=== PATIENT | female | born 1955 | race Caucasian/White ===

== ENCOUNTER 2016-12-15 19:33 | Emergency (ER) | payer MEDICAID ==
[2016-12-15] MEDS ORDERED: Metoclopramide 10 MG/2 ML SDV IVPUSH ONE (20:00)
[2016-12-15] MEDS ORDERED: Sodium Chloride 0.9% 1,000 ML IV SCH (20:00)
[2016-12-15] MEDS ORDERED: HYDROmorphone 0.5 MG/0.5 ML Syringe IVPUSH ONE (20:00)
--- NOTE | 2016-12-15 20:04 | EDM.PDOC ---
ED HPI GI/ABDOMINAL - General Chief Complaint: Gastrointestinal Problem Stated Complaint: VOMITING Time Seen by Provider: 12/15/16 19:47 Source of Information: Reports: Patient, Family (friend) History Limitations: Reports: No limitations - History of Present Illness INITIAL COMMENTS - FREE TEXT/NARRATIVE: 61-year-old female presents the ED with intractable nausea and vomiting. Started about 2000 hours last night and has persisted. She continued to vomit all night long notes dry heaves. Emesis was bilious. She's been on clear fluid diet since having gastric bypass surgery performed on 10 December. This was done at [facility] by Dr Stern. She was discharged home December 13. She has no bone pain except when she vomits. No blood has been vomited up. Did have a bowel movement today with no blood. Does not feel her abdomen is any more distended or bloated than normal. Still passing flatus. Has been able to keep down very small quantities of water throughout the day. Feels very dizzy and weak. Symptom Onset Date: 12/14/16 Symptom Onset Time: 20:00 Timing/Duration: Reports: Hour(s):, Constant, Sudden onset Location: other (Epigastric upper abdominal pain.) Quality: Reports: ache Severity: moderate Improves with: Denies: defecating Worsens with: Reports: other (Lying down or trying to eat.) Context: Reports: recent surgery (Recent gastric bypass surgery. This was done on 10 December in [facility].) Associated Symptoms (-Female): Reports: loss of appetite, malaise, nausea/ vomiting (Intractable recurrent nausea vomiting for 24 hours.). 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 (see below) (To call her meds except for her blood pressure pills today.) - Related Data Allergies/ADRs: Allergies Allergy/AdvReac Type Severity Reaction Status Date / Time No Known Allergies Allergy Verified 12/15/16 19:53 Home Meds: Home Meds Albuterol Sulfate [Proair Hfa] 1 puff INH Q4H PRN 12/15/16 [History] Hydrocodone Bit/Homatrop Me-Br [Hydrocodone Compound Syrup] 10 ml PO Q4H PRN 11/28 [History] Lisinopril 5 mg PO DAILY 12/15/16 [History] Omeprazole 20 mg PO DAILY 12/15/16 [History] Ondansetron [Zofran ODT] 4 mg PO Q6H PRN 12/15/16 [History] atorvaSTATin [Lipitor] 20 mg PO DAILY 12/15/16 [History] Past Medical History - Past Health History Medical/Surgical History: Denies Medical/Surgical History HEENT History: Reports: None Cardiovascular History: Reports: None Respiratory History: Reports: SOB Other Respiratory History: but it has been worse for last month and a half Gastrointestinal History: Reports: None Genitourinary History: Reports: None 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: Neurological History: Reports: None Psychiatric History: Reports: None Dermatologic History: Reports: None - Infectious Disease History Infectious Disease History: Reports: None - Past Surgical History HEENT Surgical History: Reports: Adenoidectomy, Tonsillectomy Female Surgical History: Reports: Hysterectomy Musculoskeletal Surgical History: Reports: Arthroscopic knee (Left), Carpal tunnel (Bilateral) Social & Family History - Family History Cardiac: Reports: PVD/COD, Other (see below) Other Cardiac Family History: CVA - Tobacco Use Smoking Status *Q: Never Smoker Second Hand Smoke Exposure: No - Alcohol Use Days Per Week of Alcohol Use: 0 - Recreational Drug Use Recreational Drug Use: No - Living Situation & Occupation Living situation: Reports: , with spouse ED ROS GENERAL - Review of Systems Review Of Systems: See Below Constitutional: Reports: chills, malaise (Some chills.), weakness, fatigue, decreased appetite. Denies: fever HEENT: Reports: Other (Very dry mouth and she is thirsty.) Respiratory: Reports: Shortness of Breath. Denies: Wheezing (On exertion chronically), Cough, Sputum, Hemoptysis Cardiovascular: Reports: Blood pressure problem, Dyspnea on exertion, Lightheadedness. Denies: Chest pain, Claudication, Orthopnea (Chronically hypertensive.), Palpitations (Chronic) Endocrine: Reports: fatigue GI/Abdominal: Reports: Abdominal pain (Mostly epigastric and at the umbilicus where recent gastric bypass surgery was performed. She has 4 stab wounds across the upper abdomen that are covered with Steri-Strips. They were all bruised not unexpected for the type of surgery she has had.) : Reports: other (Decreased urinary output today.) Musculoskeletal: Reports: back pain, joint pain (Chronically knees and hips chronically) Skin: Reports: bruising (Plenty of abdominal bruising. Bruising at antecubital fossa is a recent phlebotomy and diabetes sites.) Neurological: Reports: Dizziness Immunologic: Reports: no symptoms ED EXAM, GI/ABD - Physical Exam Exam: See Below Exam Limited By: No limitations General Appearance: alert, WD/WN, moderate distress (Patient looks quite ill.) Eyes: bilateral: normal appearance (No scleral icterus) Throat/Mouth: Other (Tongue is very dry and coated. Oropharynx is normal.) Head: atraumatic, normocephalic Neck: normal inspection, supple, non-tender, full range of motion. No: carotid bruit, lymphadenopathy (L), lymphadenopathy (R) Respiratory/Chest: lungs clear, no accessory muscle use, respiratory distress ( Mild tachypnea at rest.), decreased breath sounds (Decreased breath sounds to the posterior 30% of lung garcia. No adventitial sounds noted however.) Cardiovascular: regular rate, rhythm, no edema, no gallop, no JVD, no murmur, no rub, tachycardia (100 per minute.). No: normal peripheral pulses GI/Abdominal: normal bowel sounds, hypoactive bowel sounds, tenderness (Across the upper abdomen. Note she is morbidly obese. She has 4 puncture wounds across the upper abdomen its site of recent ports utilized for laparoscopic gastric bypass procedure. Bruising throughout the lower abdominal wall particularly in the midline. Bowel sounds are present but are not hyperactive. No real guarding or rebound tenderness could be elicited. Diffuse tenderness of course her recent surgical wounds.) Back Exam: normal inspection, full range of motion. No: CVA tenderness (L), CVA tenderness (R) Extremities: normal inspection, normal range of motion, non-tender, no pedal edema Neurological: alert, oriented, CN II-XII intact, normal cognition, normal gait Psychiatric: depressed mood Skin Exam: Warm, Dry, Intact, Normal color, Other (Does feel a bit warm to palpation.) EKG INTERPRETATION EKG Date: 12/15/16 Time: 20:50 Rhythm: NSR Rate (beats/min): 85 [place]: normal P-wave: present QRS: other (Decreased voltage in limb and precordial leads. Poor R-wave progression.) ST-T: depressed (Slight ST segment depression in leads 3 and aVF.?) Course - Vital Signs Last Recorded V/S: Last Vital Signs Temp 36.9 C 12/15/16 20:03 Pulse 98 12/15/16 20:03 Resp 12 12/15/16 20:03 BP 147/72 H 12/15/16 20:03 Pulse Ox 98 12/15/16 20:03 - Orders/Labs/Meds Orders: Active Orders 24 hr Category Date Time Status EKG Documentation Completion [RC] STAT Care 12/15/16 20:01 Active Abdomen 1V Flat [CR] Stat Exams 12/15/16 20:00 Ordered CBC WITH MANUAL DIFF [HEME] Stat Lab 12/15/16 20:10 Results URINALYSIS W/MICROSCOPIC [UA W/MICROSCOPIC] [URIN] Stat Lab 12/15/16 20:02 Uncollected Sodium Chloride 0.9% [Normal Saline] 1,000 ml Med 12/15/16 20:00 Active IV ASDIRECTED Medication Orders Sodium Chloride (Normal Saline) 1,000 mls @ 500 mls/hr IV ASDIRECTED HORTENCIA Last Admin: 12/15/16 20:14 Dose: 500 mls/hr Labs: Laboratory Tests 12/15/16 12/15/16 12/15/16 Range/Units 20:10 20:10 20:10 WBC 11.35 H (3.98-10.04) K/mm3 RBC 4.11 (3.98-5.22) M/mm3 Hgb 11.7 (11.2-15.7) gm/L Hct 36.1 (34.1-44.9) % MCV 87.8 (79.4-94.8) fl MCH 28.5 (25.6-32.2) pg MCHC 32.4 (32.2-35.5) g/dl RDW Std Deviation 41.0 (36.4-46.3) fL Plt Count 347 (182-369) K/mm3 MPV 9.7 (9.4-12.3) fl PT 11.0 (8.0-13.0) SECONDS INR 1.01 Sodium 141 (136-145) mEq/L Potassium 3.6 (3.5-5.1) mEq/L Chloride 104 (98-107) mEq/L Carbon Dioxide 23 (21-32) mEq/L Anion Gap 17.6 H (5-15) BUN 24 H (7-18) mg/dL Creatinine 0.8 (0.55-1.02) mg/dL Est Cr Clr Drug Dosing 55.73 mL/min Estimated GFR (MDRD) > 60 (>60) mL/min BUN/Creatinine Ratio 30.0 H (14-18) Glucose 152 H (80-115) mg/dL Calcium 9.1 (8.5-10.1) mg/dL Total Bilirubin 0.7 (0.2-1.0) mg/dL AST 15 (15-37) U/L ALT 22 (14-59) U/L Alkaline Phosphatase 59 (46-116) U/L C-Reactive Protein 10.5 H* (<1.0) mg/dL Total Protein 6.6 (6.4-8.2) g/dl Albumin 3.0 L (3.4-5.0) g/dl Globulin 3.6 gm/dL Albumin/Globulin Ratio 0.8 L (1-2) Lipase 292 (73-393) U/L Meds: Medications Generic Name Dose Route Start Last Admin Trade Name Freq PRN Reason Stop Dose Admin Sodium Chloride 1,000 mls @ 500 mls/hr 12/15/16 20:00 12/15/16 20:14 Normal Saline IV 500 mls/hr ASDIRECTED HORTENCIA Administration Discontinued Medications Generic Name Dose Route Start Last Admin Trade Name Freq PRN Reason Stop Dose Admin Hydromorphone HCl 0.5 mg 12/15/16 20:00 12/15/16 20:17 Dilaudid IVPUSH 12/15/16 20:01 0.5 mg ONETIME ONE Administration Metoclopramide HCl 10 mg 12/15/16 20:00 12/15/16 20:15 Reglan IVPUSH 12/15/16 20:01 10 mg ONETIME ONE Administration - Radiology Interpretation Free Text/Narrative:: 61-year-old female presents the ED with intractable nausea and vomiting for the last 24 hours. Of note she underwent arthroscopic gastric bypass procedure at [facility] on 10 December. She was released on 13 December. She's been on a clear fluid broth diet and Jell-O etc. tolerated well until last evening. Subsequently she states anything sweet seems to relieve make her feel ill. She has constant nausea that comes in waves with associated dry heaves at the present time. There's been no hematemesis. Pain in the surgical wounds when she vomits but no rest pain. Plan IV normal saline at 500 mils per hour. Given Dilaudid 0.5 mg IV for pain relief and 10 mg of Reglan IV. Routine labs including serum lipase to be done. Sodium is 141 potassium 3.6. Portal 4 bicarbonate 23. Anion gap elevated at 17.6 BUN elevated at 24. Creatinine is 0.8. BUN/creatinine ratio is elevated at 30. CRP is elevated at 10.5 glucose 152 lipase 292 normal. X-rays of the abdomen showed numerous dilated loops of small bowel without air-fluid levels. This is more of an ileus type pattern. Early small bowel obstruction cannot be ruled out. There is a positive gas in the rectum. - Re-Assessments/Exams Free Text/Narrative Re-Assessment/Exam: 12/15/16 20:46 labs reveal a white count of 11.35. Differential pending hemoglobin is 11.7 hematocrit is 36.1. Platelets are 347,000. Coags are normal. Tuan 12/15/16 21:31 spoke with the surgeon who had performed the surgery and she is accepted care she prefers the hospitals to do the admit. I therefore spoke with Dr. Puente and he is accepted the patient in transfer. She will be transferred by ground ambulance. Departure - Departure Time of Disposition: 21:32 Disposition: DC/Tfer to Acute Hospital 02 Condition: fair Clinical Impression: Intractable nausea and vomiting, Ileus following gastrointestinal surgery Additional Instructions: Patient transferred to [facility] in [facility] where she had recently undergone gastric bypass by Dr. Stern on December 10. Postoperative complications of intractable nausea and vomiting x24 hours with development of ileus. - My Orders Last 24 Hours: My Active Orders 12/15/16 20:00 Abdomen 1V Flat [CR] Stat Sodium Chloride 0.9% [Normal Saline] 1,000 ml IV ASDIRECTED 12/15/16 20:01 EKG Documentation Completion [RC] STAT 12/15/16 20:02 URINALYSIS W/MICROSCOPIC [UA W/MICROSCOPIC] [URIN] Stat 12/15/16 20:10 CBC WITH MANUAL DIFF [HEME] Stat - Assessment/Plan Last 24 Hours: My Active Orders 12/15/16 20:00 Abdomen 1V Flat [CR] Stat Sodium Chloride 0.9% [Normal Saline] 1,000 ml IV ASDIRECTED 12/15/16 20:01 EKG Documentation Completion [RC] STAT 12/15/16 20:02 URINALYSIS W/MICROSCOPIC [UA W/MICROSCOPIC] [URIN] Stat 12/15/16 20:10 CBC WITH MANUAL DIFF [HEME] Stat
[2016-12-15] MEDS ORDERED: D5%-0.9% NaCl w/ KCl 40 meq 1,000 ML IV SCH (22:00)
[2016-12-15] MEDS ORDERED: D5%-0.9% NaCl w/ KCl 40 meq 1,000 ML ONE (22:01)
[2016-12-15 22:26] VITALS: BP 160/84
--- NOTE | 2016-12-16 10:57 | CR ---
Abdomen: Supine view of the abdomen was obtained. Increased gas noted within multiple small bowel loops. Degenerative change is noted within the spine. Mild joint space narrowing is seen within both hips. Impression: 1. Increased gas within small bowel. Given recent surgery findings most likely due to ileus although difficult to exclude developing small bowel obstruction based on plain film study. 2. Other incidental findings. Diagnostic code #3
== END 2016-12-15 22:10 ==
LOC: JD.ED 19:33
DX: K91.3 Postprocedural intestinal obstruction (principal); Z90.710 Acquired absence of both cervix and uterus; Z98.890 Other specified postprocedural states; Z79.899 Other long term (current) drug therapy
CPT/HCPCS: 36415; 74000; 80053; 81001; 83690; 85025; 85610; 86140; 93005; 96361; 96374; 96375; 99285; J1170; J2765; J3480; J7040; P9612

== ENCOUNTER 2017-09-23 18:15 | Emergency (ER) | payer MEDICAID ==
[2017-09-23 18:32] VITALS: BP 165/81
--- NOTE | 2017-09-23 18:46 | EDM.PDOC ---
ED HPI GENERAL MEDICAL PROBLEM - General Chief Complaint: Chest Pain Stated Complaint: STOMACH AND BACK PAIN Time Seen by Provider: 09/23/17 18:45 Source of Information: Reports: Patient - History of Present Illness INITIAL COMMENTS - FREE TEXT/NARRATIVE: Patient is here today for evaluation of central upper abdominal pain and left chest pain that started approximately 2:30 PM today. Patient states that pain has worsened significantly since that time. She denies any shortness of breath or diaphoresis. She is nauseated but feels this is related to the pain. No vomiting or diarrhea. She had a normal bowel movement around 2 PM today that was soft but otherwise normal and formed. Patient denies any cardiac history, she states that she thinks she may have had a stroke previously but is unsure. Has no deficits from this. Does have occasional heartburn. Patient denies any Tylenol use, does not drink alcohol on a regular basis. Back Pain Score (Numeric/FACES): 10 - Related Data Allergies Allergy/AdvReac Type Severity Reaction Status Date / Time No Known Allergies Allergy Verified 09/23/17 18:33 Home Meds: Home Meds Albuterol Sulfate [Proair Hfa] 1 puff INH Q4H PRN 12/15/16 [History] Omeprazole 20 mg PO DAILY 12/15/16 [History] atorvaSTATin [Lipitor] 10 mg PO DAILY 12/15/16 [History] Past Medical History - Past Health History Medical/Surgical History: Denies Medical/Surgical History HEENT History: Reports: None Cardiovascular History: Reports: None Respiratory History: Reports: SOB Other Respiratory History: but it has been worse for last month and a half Gastrointestinal History: Reports: None Other Gastrointestinal History: gastric bypass Genitourinary History: Reports: None 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: Neurological History: Reports: None Psychiatric History: Reports: None Dermatologic History: Reports: None - Infectious Disease History Infectious Disease History: Reports: None - Past Surgical History HEENT Surgical History: Reports: Adenoidectomy, Tonsillectomy Female Surgical History: Reports: Hysterectomy Musculoskeletal Surgical History: Reports: Arthroscopic Knee, Carpal Tunnel Social & Family History - Family History Cardiac: Reports: PVD/COD, Other (See Below) Other Cardiac Family History: CVA - Tobacco Use Smoking Status *Q: Never Smoker Second Hand Smoke Exposure: No - Caffeine Use Caffeine Use: Reports: Coffee - Alcohol Use Days Per Week of Alcohol Use: 0 - Recreational Drug Use Recreational Drug Use: No - Living Situation & Occupation Living situation: Reports: , with Spouse ED ROS GENERAL - Review of Systems Review Of Systems: See Below Constitutional: Denies: Fever, Chills, Malaise, Weakness, Fatigue, Decreased Appetite HEENT: Reports: No Symptoms Respiratory: Reports: No Symptoms Cardiovascular: Reports: Chest Pain. Denies: Blood Pressure Problem Endocrine: Reports: No Symptoms GI/Abdominal: Reports: Abdominal Pain, Nausea. Denies: Black Stool, Bloody Stool, Constipation, Diarrhea, Decreased Appetite, Flatus Skin: Reports: No Symptoms ED EXAM, GENERAL - Physical Exam Exam: See Below Exam Limited By: No Limitations General Appearance: Alert, WD/WN, Moderate Distress Eye Exam: Bilateral Eye: Other (NO icterus) Throat/Mouth: Normal Inspection, Normal Oropharynx Neck: Normal Inspection, Supple Respiratory/Chest: No Respiratory Distress, Lungs Clear, No Accessory Muscle Use Cardiovascular: Normal Peripheral Pulses, Regular Rate, Rhythm, No Murmur GI/Abdominal: Normal Bowel Sounds, Soft, Tender (Epigastric and right upper quadrant.), Other (Positive Jennings sign.) Extremities: Normal Inspection, Normal Capillary Refill, Pedal Edema (1+ nonpitting) Neurological: Alert, Oriented, No Motor/Sensory Deficits Psychiatric: Normal Affect, Normal Mood Skin Exam: Warm, Dry, Intact. No: Jaundice EKG INTERPRETATION EKG Date: 09/23/17 Time: 18:45 Rhythm: NSR Rate (Beats/Min): 67 EKG Interpretation Comments: Reviewed with Dr Elizabeth Course - Vital Signs Last Recorded V/S: Last Vital Signs Temp 97 F 09/23/17 18:28 Pulse 71 09/23/17 18:28 Resp 20 09/23/17 18:28 BP 165/81 H 09/23/17 18:28 Pulse Ox 100 09/23/17 18:28 - Orders/Labs/Meds Orders: Active Orders 24 hr Category Date Time Status EKG 12 Lead [EKG Documentation Completion] [RC] STAT Care 09/23/17 18:45 Active Abdomen Ltd [US] Stat Exams 09/23/17 20:23 Taken CXR [Chest 2V] [CR] Stat Exams 09/23/17 18:51 Taken Labs: Laboratory Tests 09/23/17 09/23/17 09/23/17 Range/Units 19:30 19:30 19:30 WBC 8.22 (3.98-10.04) K/mm3 RBC 4.35 (3.98-5.22) M/mm3 Hgb 12.1 (11.2-15.7) gm/L Hct 38.2 (34.1-44.9) % MCV 87.8 (79.4-94.8) fl MCH 27.8 (25.6-32.2) pg MCHC 31.7 L (32.2-35.5) g/dl RDW Std Deviation 42.7 (36.4-46.3) fL Plt Count 213 (182-369) K/mm3 MPV 10.1 (9.4-12.3) fl Neutrophils % (Manual) 74 H (40-60) % Band Neutrophils % 0 (0-10) % Lymphocytes % (Manual) 16 L (20-40) % Atypical Lymphs % 0 % Monocytes % (Manual) 7 (2-10) % Eosinophils % (Manual) 0 L (0.7-5.8) % Basophils % (Manual) 3 H (0.1-1.2) Platelet Estimate Adequate Anisocytosis 1+ slight Macrocytosis 1+ slight Ovalocytes 1+ slight RBC Morph Comment Not Reportable D-Dimer, Quantitative 1.01 H (0.19-0.59) mg/L Sodium 143 (136-145) mEq/L Potassium 3.7 (3.5-5.1) mEq/L Chloride 107 (98-107) mEq/L Carbon Dioxide 25 (21-32) mEq/L Anion Gap 14.7 (5-15) BUN 19 H (7-18) mg/dL Creatinine 0.8 (0.55-1.02) mg/dL Est Cr Clr Drug Dosing 55.02 mL/min Estimated GFR (MDRD) > 60 (>60) mL/min BUN/Creatinine Ratio 23.8 H (14-18) Glucose 121 H (80-115) mg/dL Calcium 10.0 (8.5-10.1) mg/dL Total Bilirubin 1.1 H (0.2-1.0) mg/dL GGT (5-55) U/L AST 810 H (15-37) U/L ALT 457 H (14-59) U/L Alkaline Phosphatase 116 (46-116) U/L Troponin I 0.051 (0.00-0.056) ng/mL C-Reactive Protein < 0.2 (<1.0) mg/dL Total Protein 6.9 (6.4-8.2) g/dl Albumin 4.1 (3.4-5.0) g/dl Globulin 2.8 gm/dL Albumin/Globulin Ratio 1.5 (1-2) Lipase 142 (73-393) U/L Urine Color (Yellow) Urine Appearance (Clear) Urine pH (5.0-8.0) Ur Specific [place] (1.005-1.030) Urine Protein (Negative) Urine Glucose (UA) (Negative) Urine Ketones (Negative) Urine Occult Blood (Negative) Urine Nitrite (Negative) Urine Bilirubin (Negative) Urine Urobilinogen (0.2-1.0) Ur Leukocyte Esterase (Negative) Urine RBC (0-5) /hpf Urine WBC (0-5) /hpf Ur Epithelial Cells (0-5) /hpf Urine Bacteria (FEW) /hpf Urine Mucus (FEW) /hpf 09/23/17 09/23/17 Range/Units 19:30 21:30 WBC (3.98-10.04) K/mm3 RBC (3.98-5.22) M/mm3 Hgb (11.2-15.7) gm/L Hct (34.1-44.9) % MCV (79.4-94.8) fl MCH (25.6-32.2) pg MCHC (32.2-35.5) g/dl RDW Std Deviation (36.4-46.3) fL Plt Count (182-369) K/mm3 MPV (9.4-12.3) fl Neutrophils % (Manual) (40-60) % Band Neutrophils % (0-10) % Lymphocytes % (Manual) (20-40) % Atypical Lymphs % % Monocytes % (Manual) (2-10) % Eosinophils % (Manual) (0.7-5.8) % Basophils % (Manual) (0.1-1.2) Platelet Estimate Anisocytosis Macrocytosis Ovalocytes RBC Morph Comment D-Dimer, Quantitative (0.19-0.59) mg/L Sodium (136-145) mEq/L Potassium (3.5-5.1) mEq/L Chloride (98-107) mEq/L Carbon Dioxide (21-32) mEq/L Anion Gap (5-15) BUN (7-18) mg/dL Creatinine (0.55-1.02) mg/dL Est Cr Clr Drug Dosing mL/min Estimated GFR (MDRD) (>60) mL/min BUN/Creatinine Ratio (14-18) Glucose (80-115) mg/dL Calcium (8.5-10.1) mg/dL Total Bilirubin (0.2-1.0) mg/dL GGT 116 H (5-55) U/L AST (15-37) U/L ALT (14-59) U/L Alkaline Phosphatase (46-116) U/L Troponin I (0.00-0.056) ng/mL C-Reactive Protein (<1.0) mg/dL Total Protein (6.4-8.2) g/dl Albumin (3.4-5.0) g/dl Globulin gm/dL Albumin/Globulin Ratio (1-2) Lipase (73-393) U/L Urine Color Yellow (Yellow) Urine Appearance Clear (Clear) Urine pH 6.0 (5.0-8.0) Ur Specific [place] 1.025 (1.005-1.030) Urine Protein Negative (Negative) Urine Glucose (UA) Negative (Negative) Urine Ketones Trace H (Negative) Urine Occult Blood Negative (Negative) Urine Nitrite Negative (Negative) Urine Bilirubin 1+ H (Negative) Urine Urobilinogen 4.0 H (0.2-1.0) Ur Leukocyte Esterase Negative (Negative) Urine RBC 0-5 (0-5) /hpf Urine WBC 0-5 (0-5) /hpf Ur Epithelial Cells 0-5 (0-5) /hpf Urine Bacteria Few (FEW) /hpf Urine Mucus Few (FEW) /hpf Meds: Medications Discontinued Medications Generic Name Dose Route Start Last Admin Trade Name Freq PRN Reason Stop Dose Admin Hydromorphone HCl 0.5 mg 09/23/17 18:51 09/23/17 19:32 Dilaudid IVPUSH 09/23/17 18:52 0.5 mg ONETIME ONE Administration Hydromorphone HCl 0.5 mg 09/23/17 20:51 09/23/17 20:55 Dilaudid IVPUSH 09/23/17 20:52 0.5 mg ONETIME ONE Administration Sodium Chloride 1,000 mls @ 999 mls/hr 09/23/17 18:51 09/23/17 19:34 Normal Saline IV 09/23/17 19:51 999 mls/hr ONETIME ONE Administration Ondansetron HCl 4 mg 09/23/17 18:51 09/23/17 19:32 Zofran IVPUSH 09/23/17 18:52 4 mg ONETIME ONE Administration - Re-Assessments/Exams Free Text/Narrative Re-Assessment/Exam: WBC 8,220 with 74% neutrophils and no bands. AST is elevated at 810, ALT 457, GGT 116 and bilirubin 1.1. CRP <0.2. Lipase is normal at 142. D-dimer was initially ordered as patient's pain was up higher in location and radiating to the back, this was elevated at 1.01. Patient is having no shortness of breath whatsoever, pain has now localized specifically to abdomen. Oxygen is 100% on room air and patient is not tachycardic as HR is 71. Discussed at length with Dr. Elizabeth, do not feel CTA chest is indicated at present. Will get RUQ abdominal US for further evaluation. 09/23/17 21:30 09/23/17 21:32 Patient is resting comfortably after Dilaudid and Zofran. Ultrasound demonstrates cholelithiasis and likely cholecystitis. Patient is afebrile and WBC is not elevated. Discussed with surgeon/Dr. Joshi agrees to see the patient in clinic tomorrow to discuss cholecystectomy. Advised patient to take hydrocodone as needed for pain recommend stool softener with this. She is to have a mostly liquid diet with no fat. She is to return to the emergency room for any worsening of pain or fever greater than 101F. 09/23/17 22:12 Departure - Departure Time of Disposition: 22:07 Disposition: Home, Self-Care 01 Condition: Fair Clinical Impression: Cholelithiasis, Cholecystitis, acute Referrals: PCP,None [Primary Care Provider] - Forms: ED Department Discharge Additional Instructions: You were evaluated in the emergency room and diagnosed with gallbladder disease. you will be discharged home, I recommend a mostly liquid diet and absolute no fat in your diet. He may take the hydrocodone as needed for pain every 4-6 hours, this may cause constipation so I advised a stool softener with this. You are to follow up with Dr. Joshi/surgeon tomorrow to discuss removal of your gallbladder. You may schedule this at [phone]. You may certainly return to ER if any worsening or fever >101F. - My Orders Last 24 Hours: My Active Orders 09/23/17 18:45 EKG 12 Lead [EKG Documentation Completion] [RC] STAT 09/23/17 18:51 CXR [Chest 2V] [CR] Stat 09/23/17 20:23 Abdomen Ltd [US] Stat - Assessment/Plan Last 24 Hours: My Active Orders 09/23/17 18:45 EKG 12 Lead [EKG Documentation Completion] [RC] STAT 09/23/17 18:51 CXR [Chest 2V] [CR] Stat 09/23/17 20:23 Abdomen Ltd [US] Stat
[2017-09-23] MEDS ORDERED: HYDROmorphone 0.5 MG/0.5 ML Syringe IVPUSH ONE ×2 (18:51→20:51)
[2017-09-23] MEDS ORDERED: Ondansetron 4 MG/2 ML SDV IVPUSH ONE (18:51)
[2017-09-23] MEDS ORDERED: Sodium Chloride 0.9% 1,000 ML IV ONE (18:51)
--- NOTE | 2017-09-24 12:47 | CR ---
Chest: Two views of the chest were obtained. Comparison: Prior chest x-ray of 06/10/16. Heart size and mediastinum are normal. Lungs are clear. Degenerative spurring is noted within the spine. Impression: 1. Nothing acute is identified on two-view chest x-ray. Diagnostic code #2
--- NOTE | 2017-09-24 12:47 | US ---
Limited abdominal ultrasound: Multiple real-time images of the right upper abdomen were obtained. Comparison: No previous abdominal imaging. Previous CT chest partially showing the abdomen dated 06/10/16. Cyst identified within the left lobe of the liver measuring about 5.8 cm. This is identified on previous CT exam. Echogenic liver is seen compatible with fatty infiltration which is also noted on prior CT exam. Gallbladder is dilated. Mild gallbladder wall edema is noted. Gallbladder wall is also thickened. Common bile duct is dilated up to 9 mm. Soft tissue density identified within the gallbladder most likely due to sludge ball. No definite shadowing cholelithiasis is seen. Visualized portions of the pancreas are unremarkable. Right kidney shows no hydronephrosis or mass and has a length of 12.1 cm. Pancreas appears unremarkable but is incompletely seen. Impression: 1. Dilated gallbladder showing gallbladder wall edema and gallbladder wall thickening. Findings suspicious for acute cholecystitis. 2. Dilated common bile duct up to 9 mm. 3. Fatty infiltration within the liver. Diagnostic code #3 Agree with preliminary report issued by [facility] ([facility] preliminary report dictated on 09/23/17, 10:41 PM Central Time)
== END 2017-09-23 22:27 | disposition home or self-care (01) ==
LOC: JD.ED 18:15
DX: K80.00 Calculus of gallbladder with acute cholecystitis without obstruction (principal); Z79.899 Other long term (current) drug therapy
CPT/HCPCS: 36415; 71046; 76705; 80053; 81001; 82977; 83690; 84484; 85025; 85379; 86140; 93005; 96361; 96374; 96375; 96376; 99285; J1170; J2405; J7040; P9612; 93010; 99284

== ENCOUNTER 2017-10-13 12:54 | Emergency (ER) | payer MEDICAID ==
[2017-10-13] MEDS ORDERED: Ondansetron 4 MG/2 ML SDV IVPUSH ONE (13:13)
[2017-10-13] MEDS ORDERED: Sodium Chloride 0.9% 10 ML Syringe FLUSH PRN ×2 (13:13→13:18)
[2017-10-13] MEDS ORDERED: Sodium Chloride 0.9% 1,000 ML IV STA (13:13)
[2017-10-13] MEDS ORDERED: HYDROmorphone 1 MG/ML Syringe IVPUSH ONE ×2 (13:16→15:39)
[2017-10-13] MEDS ORDERED: Iopamidol 612 MG/ML 100 ML Bottle IVPUSH ONE (13:18)
[2017-10-13] MEDS ORDERED: Diatrizoate Meglumine/Diatrizoate Sodium 37% 120 ML Bottle PO ONE (13:18)
[2017-10-13] MEDS ORDERED: Acetaminophen 325 MG Tab PO ONE (15:39)
[2017-10-13] MEDS ORDERED: metroNIDAZOLE/Normal Saline 500 MG in Premix Bag 1 BAG IV ONE (15:41)
[2017-10-13] MEDS ORDERED: Levofloxacin/Dextrose 5%-Water 750 MG in Premix Bag 1 BAG IV ONE (15:41)
--- NOTE | 2017-10-13 16:05 | EDM.PDOC ---
ED HPI GENERAL MEDICAL PROBLEM - General Chief Complaint: Abdominal Pain Stated Complaint: NAUSEA AND PAIN POST SURGERY Time Seen by Provider: 10/13/17 13:08 Source of Information: Reports: Patient History Limitations: Reports: No Limitations - History of Present Illness INITIAL COMMENTS - FREE TEXT/NARRATIVE: The patient presents with right lower abdominal pain and fever. Last Thursday she had her gallbladder removed by Dr Mak at [facility] in [place]. She has a history of gastric bypass and she did lose about 129pounds. She developed pain yesterday and fever. She has nausea but no vomiting. She has no dysuria. She has no congestion, runny nose or cough. She has no diarrhea. Onset: Gradual Duration: Day(s): Location: Reports: Abdomen Quality: Reports: Sharp Severity: Severe Improves with: Reports: None Worsens with: Reports: None Context: Reports: Other (Surgery last week) Associated Symptoms: Reports: Fever/Chills, Nausea/Vomiting. Denies: Chest Pain , Cough, Shortness of Breath Right Lower Abdominal Pain Score (Numeric/FACES): 10 - Related Data Allergies Allergy/AdvReac Type Severity Reaction Status Date / Time No Known Allergies Allergy Verified 10/13/17 13:11 Home Meds: Home Meds Albuterol Sulfate [Proair Hfa] 1 puff INH Q4H PRN 12/15/16 [History] Omeprazole 20 mg PO DAILY 12/15/16 [History] atorvaSTATin [Lipitor] 10 mg PO DAILY 12/15/16 [History] Past Medical History - Past Health History Medical/Surgical History: Denies Medical/Surgical History HEENT History: Reports: None Cardiovascular History: Reports: None Respiratory History: Reports: SOB Other Respiratory History: but it has been worse for last month and a half Gastrointestinal History: Reports: None Other Gastrointestinal History: gastric bypass Genitourinary History: Reports: None 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: Neurological History: Reports: None Psychiatric History: Reports: None Dermatologic History: Reports: None - Infectious Disease History Infectious Disease History: Reports: None - Past Surgical History HEENT Surgical History: Reports: Adenoidectomy, Tonsillectomy Female Surgical History: Reports: Hysterectomy Musculoskeletal Surgical History: Reports: Arthroscopic Knee, Carpal Tunnel Social & Family History - Family History Cardiac: Reports: PVD/COD, Other (See Below) Other Cardiac Family History: CVA - Tobacco Use Smoking Status *Q: Never Smoker Second Hand Smoke Exposure: No - Caffeine Use Caffeine Use: Reports: Coffee - Alcohol Use Days Per Week of Alcohol Use: 0 - Recreational Drug Use Recreational Drug Use: No - Living Situation & Occupation Living situation: Reports: , with Spouse ED ROS GENERAL - Review of Systems Review Of Systems: See Below Constitutional: Reports: Fever, Chills, Malaise, Weakness, Fatigue HEENT: Reports: No Symptoms Respiratory: Reports: No Symptoms Cardiovascular: Reports: No Symptoms Endocrine: Reports: No Symptoms GI/Abdominal: Reports: Abdominal Pain, Nausea. Denies: Diarrhea, Vomiting : Reports: No Symptoms Musculoskeletal: Reports: No Symptoms Skin: Reports: No Symptoms ED EXAM, GI/ABD - Physical Exam Exam: See Below Exam Limited By: No Limitations General Appearance: Alert, No Apparent Distress Ears: Normal External Exam Nose: Normal Inspection Head: Atraumatic, Normocephalic Neck: Normal Inspection Respiratory/Chest: No Respiratory Distress, Lungs Clear, Normal Breath Sounds Cardiovascular: Regular Rate, Rhythm, No Edema, No Murmur GI/Abdominal Exam: Soft, No Organomegaly, No Mass, Tender (Moderate to severe pain upon palpation to the right lower abdomen) Extremities: Normal Inspection Course - Vital Signs Last Recorded V/S: Last Vital Signs Temp 100.4 F 10/13/17 15:54 Pulse 105 H 10/13/17 13:11 Resp 20 10/13/17 13:11 BP 144/62 H 10/13/17 13:11 Pulse Ox 97 10/13/17 13:11 - Orders/Labs/Meds Orders: Active Orders 24 hr Category Date Time Status Peripheral IV Care [RC] . DIRECTED Care 10/13/17 13:14 Active Abdomen Pelvis w Cont [CT] Stat Exams 10/13/17 13:13 Taken CULTURE BLOOD [BC] Stat Lab 10/13/17 15:39 Ordered CULTURE BLOOD [BC] Stat Lab 10/13/17 15:39 Ordered INFLUENZA A+B AG SCREEN [RM] Stat Lab 10/13/17 16:07 Uncollected UA W/MICROSCOPIC [URIN] Stat Lab 10/13/17 13:13 Uncollected Levofloxacin/Dextrose 5%-Water [Levaquin in D5W 750 MG/ Med 10/13/17 15:41 Active 150 ML] 750 mg Premix Bag 1 bag IV ONETIME Sodium Chloride 0.9% [Saline Flush] Med 10/13/17 13:13 Active 10 ml FLUSH ASDIRECTED PRN Sodium Chloride 0.9% [Saline Flush] Med 10/13/17 13:18 Active 10 ml FLUSH ONETIME PRN metroNIDAZOLE/Normal Saline [Flagyl 500 MG in NS 100 ML Med 10/13/17 15:41 Active ] 500 mg Premix Bag 1 bag IV ONETIME Blood Culture x2 Reflex Set [OM.PC] Stat Oth 10/13/17 15:39 Ordered ED Antiemetic Medication Reflex [OM.PC] Stat Oth 10/13/17 13:15 Ordered Peripheral IV Insertion Adult [OM.PC] Stat Oth 10/13/17 13:13 Ordered Medication Orders Levofloxacin/Dextrose 750 mg/ (Premix) 150 mls @ 100 mls/hr IV ONETIME ONE Stop: 10/13/17 17:10 Metronidazole 500 mg/ Premix 100 mls @ 100 mls/hr IV ONETIME ONE Stop: 10/13/17 16:40 Sodium Chloride (Saline Flush) 10 ml FLUSH ASDIRECTED PRN PRN Reason: Keep Vein Open Last Admin: 10/13/17 13:29 Dose: 10 ml Sodium Chloride (Saline Flush) 10 ml FLUSH ONETIME PRN PRN Reason: IV FLUSH Last Admin: 10/13/17 14:26 Dose: 10 ml Labs: Laboratory Tests 10/13/17 10/13/17 Range/Units 13:25 13:25 WBC 9.88 (3.98-10.04) K/mm3 RBC 4.14 (3.98-5.22) M/mm3 Hgb 11.6 (11.2-15.7) gm/L Hct 36.5 (34.1-44.9) % MCV 88.2 (79.4-94.8) fl MCH 28.0 (25.6-32.2) pg MCHC 31.8 L (32.2-35.5) g/dl RDW Std Deviation 41.5 (36.4-46.3) fL Plt Count 297 (182-369) K/mm3 MPV 10.2 (9.4-12.3) fl Neut % (Auto) 83.0 H (34.0-71.1) % Lymph % (Auto) 9.8 L (19.3-51.7) % Mineral % (Auto) 4.8 (4.7-12.5) % Eos % (Auto) 2.1 (0.7-5.8) Baso % (Auto) 0.2 (0.1-1.2) % Neut # (Auto) 8.20 H (1.56-6.13) K/mm3 Lymph # (Auto) 0.97 L (1.18-3.74) K/mm3 Mineral # (Auto) 0.47 H (0.24-0.36) K/mm3 Eos # (Auto) 0.21 (0.04-0.36) K/mm3 Baso # (Auto) 0.02 (0.01-0.08) K/mm3 Manual Slide Review Normal smear Sodium 139 (136-145) mEq/L Potassium 4.3 (3.5-5.1) mEq/L Chloride 102 (98-107) mEq/L Carbon Dioxide 27 (21-32) mEq/L Anion Gap 14.3 (5-15) BUN 10 (7-18) mg/dL Creatinine 0.7 (0.55-1.02) mg/dL Est Cr Clr Drug Dosing 68.93 mL/min Estimated GFR (MDRD) > 60 (>60) mL/min BUN/Creatinine Ratio 14.3 (14-18) Glucose 109 (80-115) mg/dL Calcium 9.0 (8.5-10.1) mg/dL Total Bilirubin 0.6 (0.2-1.0) mg/dL AST 30 (15-37) U/L ALT 31 (14-59) U/L Alkaline Phosphatase 129 H (46-116) U/L Total Protein 6.9 (6.4-8.2) g/dl Albumin 3.3 L (3.4-5.0) g/dl Globulin 3.6 gm/dL Albumin/Globulin Ratio 0.9 L (1-2) Lipase 77 (73-393) U/L Meds: Medications Generic Name Dose Route Start Last Admin Trade Name Freq PRN Reason Stop Dose Admin Levofloxacin/Dextrose 750 mg/ 150 mls @ 100 mls/hr 10/13/17 15:41 Premix IV 10/13/17 17:10 ONETIME ONE Metronidazole 500 mg/ Premix 100 mls @ 100 mls/hr 10/13/17 15:41 IV 10/13/17 16:40 ONETIME ONE Sodium Chloride 10 ml 10/13/17 13:13 10/13/17 13:29 Saline Flush FLUSH 10 ml ASDIRECTED PRN Administration Keep Vein Open Sodium Chloride 10 ml 10/13/17 13:18 10/13/17 14:26 Saline Flush FLUSH 10 ml ONETIME PRN Administration IV FLUSH Discontinued Medications Generic Name Dose Route Start Last Admin Trade Name Castroq PRN Reason Stop Dose Admin Acetaminophen 975 mg 10/13/17 15:39 10/13/17 15:54 Tylenol PO 10/13/17 15:40 975 mg NOW ONE Administration Diatrizoate Meglum/Diatrizoate Sod 120 ml 10/13/17 13:18 10/13/17 14:26 Gastrografin 37% PO 10/13/17 13:19 90 ml ONETIME ONE Administration Hydromorphone HCl 1 mg 10/13/17 13:16 10/13/17 13:30 Dilaudid IVPUSH 10/13/17 13:17 1 mg ONETIME ONE Administration Hydromorphone HCl 1 mg 10/13/17 15:39 10/13/17 15:54 Dilaudid IVPUSH 10/13/17 15:40 1 mg ONETIME ONE Administration Sodium Chloride 1,000 mls @ 1,000 mls/hr 10/13/17 13:13 10/13/17 13:29 Normal Saline IV 10/13/17 14:12 1,000 mls/hr .BOLUS STA Administration Iopamidol 100 ml 10/13/17 13:18 10/13/17 14:26 Isovue-300 (61%) IVPUSH 10/13/17 13:19 100 ml ONETIME ONE Administration Ondansetron HCl 4 mg 10/13/17 13:13 10/13/17 13:29 Zofran IVPUSH 10/13/17 13:14 4 mg ONETIME ONE Administration - Re-Assessments/Exams Free Text/Narrative Re-Assessment/Exam: 10/13/17 16:01 I ordered an IV NS labs, UA, CT of her abdomen and pelvis and dilaudid for pain. Her CBC and CMP look good. Her lipase is negative. Her CT shows low density and air as well as surgical clips are seen within the gallbladder bed. Findings could represent abscess. This finding measures approximately 7.9cm. Minimal fluid off the inferior right lobe of the liver as well as next to the dome of the liver as well as minimal fluid within the pelvis. Prominent amount of subcutaneous air within the right abdominal wall. I ordered blood cultures and flagyl and levaquin. She had more pain so I ordered her something more for pain. 10/13/17 16:08 I feel she needs to be admitted. I called [facility] in [place] and talked with Dr Thakkar and he agreed to the transfer. 10/13/17 16:11 Departure - Departure Time of Disposition: 16:15 Disposition: DC/Tfer to Acute Hospital 02 Condition: Poor Clinical Impression: Abdominal abscess Abdominal pain Qualifiers: Abdominal location: right lower quadrant Qualified Code(s): R10.31 - Right lower quadrant pain Subcutaneous air Qualifiers: Encounter type: initial encounter Qualified Code(s): T79.7XXA - Traumatic subcutaneous emphysema, initial encounter - Discharge Information Referrals: Jorge Alberto Doshi Jr, MD [Primary Care Provider] - Forms: ED Department Discharge - My Orders Last 24 Hours: My Active Orders 10/13/17 13:13 Abdomen Pelvis w Cont [CT] Stat UA W/MICROSCOPIC [URIN] Stat Sodium Chloride 0.9% [Saline Flush] 10 ml FLUSH ASDIRECTED PRN Peripheral IV Insertion Adult [OM.PC] Stat 10/13/17 13:14 Peripheral IV Care [RC] . DIRECTED 10/13/17 13:15 ED Antiemetic Medication Reflex [OM.PC] Stat 10/13/17 13:18 Sodium Chloride 0.9% [Saline Flush] 10 ml FLUSH ONETIME PRN 10/13/17 15:39 CULTURE BLOOD [BC] Stat CULTURE BLOOD [BC] Stat Blood Culture x2 Reflex Set [OM.PC] Stat 10/13/17 15:41 Levofloxacin/Dextrose 5%-Water [Levaquin in D5W 750 MG/150 ML] 750 mg Premix Bag 1 bag IV ONETIME metroNIDAZOLE/Normal Saline [Flagyl 500 MG in NS 100 ML] 500 mg Premix Bag 1 bag IV ONETIME 10/13/17 16:07 INFLUENZA A+B AG SCREEN [RM] Stat - Assessment/Plan Last 24 Hours: My Active Orders 10/13/17 13:13 Abdomen Pelvis w Cont [CT] Stat UA W/MICROSCOPIC [URIN] Stat Sodium Chloride 0.9% [Saline Flush] 10 ml FLUSH ASDIRECTED PRN Peripheral IV Insertion Adult [OM.PC] Stat 10/13/17 13:14 Peripheral IV Care [RC] . DIRECTED 10/13/17 13:15 ED Antiemetic Medication Reflex [OM.PC] Stat 10/13/17 13:18 Sodium Chloride 0.9% [Saline Flush] 10 ml FLUSH ONETIME PRN 10/13/17 15:39 CULTURE BLOOD [BC] Stat CULTURE BLOOD [BC] Stat Blood Culture x2 Reflex Set [OM.PC] Stat 10/13/17 15:41 Levofloxacin/Dextrose 5%-Water [Levaquin in D5W 750 MG/150 ML] 750 mg Premix Bag 1 bag IV ONETIME metroNIDAZOLE/Normal Saline [Flagyl 500 MG in NS 100 ML] 500 mg Premix Bag 1 bag IV ONETIME 10/13/17 16:07 INFLUENZA A+B AG SCREEN [RM] Stat
--- NOTE | 2017-10-13 16:15 | CT ---
CT abdomen and pelvis Technique: Multiple axial sections were obtained from above the dome of the diaphragm inferiorly through the pubic symphysis. Intravenous and oral contrast has been given. Delayed images were also obtained through the abdomen and pelvis. Comparison: Prior abdominal ultrasound of the upper right abdomen dated 09/23/17. Findings: Low density area containing air and surgical clips are seen within the gallbladder fossa possibly due to abscess. Cyst noted within the liver measuring 6.2 cm. No additional abnormality seen within the liver. Spleen appears within normal limits. Prior gastric surgery is noted. Adrenal glands show no nodule. Pancreas is normal. Kidneys show symmetric contrast enhancement. Small low density finding is noted within the left kidney in the parapelvic region measuring 9 mm which is felt compatible with a cyst. Small amount of fluid seen within the pelvis. Prominent amount of soft tissue air noted within the right lower abdominal wall. Prior abdominal graft material is seen. No pelvic mass or adenopathy is identified. Minimal fluid seen around the lower right liver and overlying the dome of the liver. Scattered degenerative changes noted within the spine. Impression: 1. Low density and air as well as surgical clips are seen within the gallbladder bed. Findings could represent abscess. This finding measures approximately 7.9 cm. 2. Minimal fluid off the inferior right lobe of the liver as well as next to the dome of the liver as well as minimal fluid within the pelvis. 3. Prominent amount of subcutaneous air within the right abdominal wall. 4. Other incidental findings as noted above. Diagnostic code #5
[2017-10-13 18:10] VITALS: BP 101/55
== END 2017-10-13 17:24 ==
LOC: JD.ED 12:54
DX: T79.7XXA Traumatic subcutaneous emphysema, initial encounter (principal); L02.211 Cutaneous abscess of abdominal wall; Z90.710 Acquired absence of both cervix and uterus; Z90.49 Acquired absence of other specified parts of digestive tract
CPT/HCPCS: 36415; 74177; 80053; 81001; 83690; 85025; 87040; 87804; 96361; 96365; 96368; 96375; 96376; 99285; A9270; J1170; J1956; J2405; J7040; J7050; Q9963; Q9967

== ENCOUNTER 2017-11-13 10:56 | Emergency (ER) | payer MEDICAID ==
[2017-11-13 11:10] VITALS: BP 122/72
--- NOTE | 2017-11-13 11:34 | EDM.PDOC ---
ED HPI GENERAL MEDICAL PROBLEM - General Chief Complaint: Skin Complaint Stated Complaint: SKIN COMPLAINT/ABDOMINAL AREA Time Seen by Provider: 11/13/17 11:10 Source of Information: Reports: Patient History Limitations: Reports: No Limitations - History of Present Illness INITIAL COMMENTS - FREE TEXT/NARRATIVE: The patient had surgery 5 weeks ago to remove mesh from a hernia. The incision is healing good but there is an area below the new incision where there was an old incision that opened up with erythema, edema and drainage. She noticed that yesterday. She has no fever or chills. Onset: Gradual Duration: Day(s): (Yesterday) Location: Reports: Abdomen Severity: Mild Improves with: Reports: None Worsens with: Reports: None Associated Symptoms: Reports: No Other Symptoms - Related Data Allergies Allergy/AdvReac Type Severity Reaction Status Date / Time No Known Allergies Allergy Verified 11/13/17 11:10 Home Meds: Home Meds Albuterol Sulfate [Proair Hfa] 1 puff INH Q4H PRN 12/15/16 [History] Omeprazole 20 mg PO DAILY 12/15/16 [History] atorvaSTATin [Lipitor] 10 mg PO DAILY 12/15/16 [History] Cephalexin [Keflex] 500 mg PO Q6HR #40 capsule 11/13/17 [Rx] Montelukast [Singulair] 10 mg PO DAILY 11/13/17 [History] Past Medical History - Past Health History Medical/Surgical History: Denies Medical/Surgical History HEENT History: Reports: None Cardiovascular History: Reports: High Cholesterol Respiratory History: Reports: Asthma, SOB Other Respiratory History: but it has been worse for last month and a half Gastrointestinal History: Reports: None Other Gastrointestinal History: gastric bypass Genitourinary History: Reports: None [employer] History: Reports: Neurological History: Reports: None Psychiatric History: Reports: None Dermatologic History: Reports: None - Infectious Disease History Infectious Disease History: Reports: None - Past Surgical History HEENT Surgical History: Reports: Adenoidectomy, Tonsillectomy GI Surgical History: Reports: Bariatric Procedure, Cholecystectomy, Hernia, Abdominal Female Surgical History: Reports: Hysterectomy Musculoskeletal Surgical History: Reports: Arthroscopic Knee, Carpal Tunnel Social & Family History - Family History Cardiac: Reports: PVD/COD, Other (See Below) Other Cardiac Family History: CVA - Tobacco Use Smoking Status *Q: Never Smoker Second Hand Smoke Exposure: No - Caffeine Use Caffeine Use: Reports: None - Alcohol Use Days Per Week of Alcohol Use: 0 - Recreational Drug Use Recreational Drug Use: No - Living Situation & Occupation Living situation: Reports: , with Spouse ED ROS GENERAL - Review of Systems Review Of Systems: See Below Constitutional: Reports: No Symptoms HEENT: Reports: No Symptoms Respiratory: Reports: No Symptoms Cardiovascular: Reports: No Symptoms Endocrine: Reports: No Symptoms GI/Abdominal: Reports: Other (Old incision that opened up) : Reports: No Symptoms Musculoskeletal: Reports: No Symptoms ED EXAM, SKIN/RASH Exam: See Below Exam Limited By: No Limitations General Appearance: Alert, No Apparent Distress Ears: Normal External Exam Nose: Normal Inspection Head: Atraumatic, Normocephalic Neck: Normal Inspection Respiratory/Chest: No Respiratory Distress GI/Abdominal: Other (Scar to the midline that has no erythema, edema or drainage. Below there is an old incision that has opened up partialy with erythema and drainage.) Course - Vital Signs Last Recorded V/S: Last Vital Signs Temp 98.4 F 11/13/17 11:04 Pulse 66 11/13/17 11:04 Resp 12 11/13/17 11:04 BP 122/72 11/13/17 11:04 Pulse Ox 100 11/13/17 11:04 - Re-Assessments/Exams Free Text/Narrative Re-Assessment/Exam: 11/13/17 11:33 There is an infection of the old incision. I will get her on some keflex. Departure - Departure Time of Disposition: 11:35 Disposition: Home, Self-Care 01 Condition: Good Clinical Impression: Incisional infection Qualifiers: Encounter type: initial encounter Qualified Code(s): T81.4XXA - Infection following a procedure, initial encounter - Discharge Information Prescriptions: Cephalexin [Keflex] 500 mg PO Q6HR #40 capsule Referrals: Jorge Alberto Doshi Jr, MD [Primary Care Provider] - 1 Week Additional Instructions: Take the keflex every 6 hours for 10 days. Wash the wound 2 times per day with warm soapy water and leave it dry. Follow up with your doctor in 1 week.
== END 2017-11-13 11:48 | disposition home or self-care (01) ==
LOC: JD.ED 10:56
DX: T81.4XXA Infection following a procedure, initial encounter (principal); J45.909 Unspecified asthma, uncomplicated; E78.00 Pure hypercholesterolemia, unspecified; Z79.899 Other long term (current) drug therapy; Z98.890 Other specified postprocedural states; Z90.49 Acquired absence of other specified parts of digestive tract; Z98.84 Bariatric surgery status
CPT/HCPCS: 99283

== ENCOUNTER 2018-10-22 03:09 | Emergency (ER) | payer MEDICARE, MEDICAID ==
[2018-10-22 03:19] VITALS: BP 153/75
--- NOTE | 2018-10-22 03:46 | EDM.PDOC ---
ED HPI GENERAL MEDICAL PROBLEM - General Chief Complaint: Fever Stated Complaint: NAUSEA FEVER SORE THROAT Time Seen by Provider: 10/22/18 03:38 - History of Present Illness INITIAL COMMENTS - FREE TEXT/NARRATIVE: 63-year-old female presents emergency room with a sore throat fever chills. This started earlier this evening. This patient just feels feverish and chilled mildly nauseated and achy all over. She's had intermittent rare cough. She has not felt like this in the past she has a mild headache as well. She denies any chest pain chest pressure. Other than intermittent rare cough no breathing difficulties or shortness of breath the cough that she does have is dry nonproductive. She is not aware of anything that makes this better or worse. Generalized Pain Score (Numeric/FACES): 7 - Related Data Allergies Allergy/AdvReac Type Severity Reaction Status Date / Time No Known Allergies Allergy Verified 10/22/18 03:16 Home Meds: Home Meds Albuterol Sulfate [Proair Hfa] 1 puff INH Q4H PRN 12/15/16 [History] Omeprazole 20 mg PO DAILY 12/15/16 [History] atorvaSTATin [Lipitor] 10 mg PO DAILY 12/15/16 [History] Montelukast [Singulair] 10 mg PO DAILY 11/13/17 [History] Amoxicillin 500 mg PO TID #30 tab 10/22/18 [Rx] Ondansetron [Zofran ODT] 4 mg PO Q6H PRN #10 tab.dis 10/22/18 [Rx] Past Medical History - Past Health History Medical/Surgical History: Denies Medical/Surgical History HEENT History: Reports: None Cardiovascular History: Reports: High Cholesterol Respiratory History: Reports: Asthma, SOB Other Respiratory History: but it has been worse for last month and a half Gastrointestinal History: Reports: None Other Gastrointestinal History: gastric bypass Genitourinary History: Reports: 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: Neurological History: Reports: None Psychiatric History: Reports: None Dermatologic History: Reports: None - Infectious Disease History Infectious Disease History: Reports: None - Past Surgical History HEENT Surgical History: Reports: Adenoidectomy, Tonsillectomy GI Surgical History: Reports: Bariatric Procedure, Cholecystectomy, Hernia, Abdominal Female Surgical History: Reports: Hysterectomy Musculoskeletal Surgical History: Reports: Arthroscopic Knee, Carpal Tunnel Social & Family History - Family History Cardiac: Reports: PVD/COD, Other (See Below) Other Cardiac Family History: CVA - Tobacco Use Smoking Status *Q: Never Smoker - Caffeine Use Caffeine Use: Reports: None - Recreational Drug Use Recreational Drug Use: No - Living Situation & Occupation Living situation: Reports: , with Spouse ED ROS GENERAL - Review of Systems Review Of Systems: See Below Constitutional: Reports: Fever, Chills HEENT: Reports: Throat Pain Respiratory: Reports: No Symptoms Cardiovascular: Reports: No Symptoms Endocrine: Reports: No Symptoms GI/Abdominal: Reports: Nausea. Denies: Abdominal Pain, Constipation, Diarrhea, Vomiting : Reports: No Symptoms Neurological: Reports: No Symptoms ED EXAM, GENERAL - Physical Exam Exam: See Below Exam Limited By: No Limitations General Appearance: Alert, Other (She appears ill but is very cooperative) Eye Exam: Bilateral Eye: Normal Inspection Ears: Normal External Exam, Normal Canal, Hearing Grossly Normal, Normal TMs Nose: Normal Inspection, Normal Mucosa, No Blood Throat/Mouth: Normal Lips, Normal Teeth, Normal Gums, Other (Mild pharyngeal erythema) Head: Atraumatic, Normocephalic Neck: Normal Inspection, Supple, Non-Tender, Full Range of Motion Respiratory/Chest: No Respiratory Distress, Lungs Clear, Normal Breath Sounds Cardiovascular: Regular Rate, Rhythm, No Edema, No Murmur GI/Abdominal: Normal Bowel Sounds, Soft, Non-Tender Back Exam: Normal Inspection. No: CVA Tenderness (L), CVA Tenderness (R) Extremities: Normal Inspection, No Pedal Edema EKG INTERPRETATION EKG Date: 10/22/18 Rhythm: NSR [place]: Normal P-Wave: Present QRS: Normal ST-T: Normal QT: Normal Course - Vital Signs Last Recorded V/S: Last Vital Signs Temp 101.7 C H 10/22/18 05:20 Pulse 98 10/22/18 03:17 Resp 20 10/22/18 03:17 BP 153/75 H 10/22/18 03:17 Pulse Ox 97 10/22/18 03:17 - Orders/Labs/Meds Orders: Active Orders 24 hr Category Date Time Status EKG Documentation Completion [RC] STAT Care 10/22/18 03:47 Active STREP SCRN A RAPID W CULT CONF [RM] Stat Lab 10/22/18 03:52 Results Labs: Laboratory Tests 10/22/18 10/22/18 Range/Units 04:05 04:05 WBC 11.54 H (3.98-10.04) K/mm3 RBC 4.30 (3.98-5.22) M/mm3 Hgb 11.8 (11.2-15.7) gm/L Hct 37.1 (34.1-44.9) % MCV 86.3 (79.4-94.8) fl MCH 27.4 (25.6-32.2) pg MCHC 31.8 L (32.2-35.5) g/dl RDW Std Deviation 41.5 (36.4-46.3) fL Plt Count 204 (182-369) K/mm3 MPV 9.4 (9.4-12.3) fl Neutrophils % (Manual) 82 H (40-60) % Band Neutrophils % 2 (0-10) % Lymphocytes % (Manual) 10 L (20-40) % Atypical Lymphs % 0 % Monocytes % (Manual) 4 (2-10) % Eosinophils % (Manual) 0 L (0.7-5.8) % Basophils % (Manual) 2 H (0.1-1.2) Toxic Granulation 1+ slight Platelet Estimate Adequate Plt Morphology Comment Normal RBC Morph Comment Normal Sodium 140 (136-145) mEq/L Potassium 3.9 (3.5-5.1) mEq/L Chloride 105 (98-107) mEq/L Carbon Dioxide 26 (21-32) mEq/L Anion Gap 12.9 (5-15) BUN 14 (7-18) mg/dL Creatinine 0.8 (0.55-1.02) mg/dL Est Cr Clr Drug Dosing 54.31 mL/min Estimated GFR (MDRD) > 60 (>60) mL/min BUN/Creatinine Ratio 17.5 (14-18) Glucose 108 (80-115) mg/dL Calcium 9.2 (8.5-10.1) mg/dL Total Bilirubin 0.8 (0.2-1.0) mg/dL AST 28 (15-37) U/L ALT 35 (14-59) U/L Alkaline Phosphatase 95 (46-116) U/L Troponin I < 0.017 (0.00-0.056) ng/mL Total Protein 6.5 (6.4-8.2) g/dl Albumin 3.5 (3.4-5.0) g/dl Globulin 3.0 gm/dL Albumin/Globulin Ratio 1.2 (1-2) Meds: Medications Discontinued Medications Generic Name Dose Route Start Last Admin Trade Name Freq PRN Reason Stop Dose Admin Acetaminophen 975 mg 10/22/18 05:13 Tylenol PO 10/22/18 05:14 ONETIME ONE Acetaminophen 975 mg 10/22/18 05:16 10/22/18 05:20 Tylenol PO 10/22/18 05:17 975 mg NOW STA Administration Acetaminophen Confirm 10/22/18 05:18 10/22/18 05:41 Tylenol Administered 10/22/18 05:19 Not Given Dose 975 mg .ROUTE .STK-MED ONE Amoxicillin 500 mg 10/22/18 05:13 10/22/18 05:20 Amoxil PO 10/22/18 05:14 500 mg ONETIME ONE Administration Ondansetron HCl 4 mg 10/22/18 05:40 Zofran Odt PO 10/22/18 05:41 ONETIME ONE - Re-Assessments/Exams Free Text/Narrative Re-Assessment/Exam: 10/22/18 05:33 Laboratory exam shows a mild leukocytosis influenza screen and these both negative rapid strep is positive. She'll be given some Tylenol and amoxicillin Departure - Departure Time of Disposition: 05:34 Disposition: Home, Self-Care 01 Clinical Impression: Strep pharyngitis - Discharge Information Prescriptions: Amoxicillin 500 mg PO TID #30 tab Ondansetron [Zofran ODT] 4 mg PO Q6H PRN #10 tab.dis PRN Reason: Nausea/Vomiting Instructions: Strep Throat Referrals: Jorge Alberto Doshi Jr, MD [Primary Care Provider] - Forms: ED Department Discharge Additional Instructions: Return to the emergency room with any questions problems worsening symptoms. Using amoxicillin as directed and take until all gone. Use Tylenol 650 -1,000 mg 4 times a day for fever and aches and pains. Follow-up with your regular provider early next week if needed. Uses Zofran as needed for nausea and vomiting 1 every 6 hours it will dissolve on top or under your tongue - My Orders Last 24 Hours: My Active Orders 10/22/18 03:47 EKG Documentation Completion [RC] STAT 10/22/18 03:52 STREP SCRN A RAPID W CULT CONF [RM] Stat - Assessment/Plan Last 24 Hours: My Active Orders 10/22/18 03:47 EKG Documentation Completion [RC] STAT 10/22/18 03:52 STREP SCRN A RAPID W CULT CONF [RM] Stat
[2018-10-22] MEDS ORDERED: Amoxicillin 500 MG Cap PO ONE (05:13)
[2018-10-22] MEDS ORDERED: Acetaminophen 325 MG/10.15 ML ML PO ONE (05:13)
[2018-10-22] MEDS ORDERED: Acetaminophen 325 MG Tab PO STA (05:16)
[2018-10-22] MEDS ORDERED: Acetaminophen 325 MG Tab ONE (05:18)
[2018-10-22] MEDS ORDERED: Ondansetron 4 MG Tab.DIS PO ONE (05:40)
== END 2018-10-22 05:53 | disposition home or self-care (01) ==
LOC: JD.ED 03:09
DX: J02.0 Streptococcal pharyngitis (principal); E78.00 Pure hypercholesterolemia, unspecified; J45.909 Unspecified asthma, uncomplicated; Z79.899 Other long term (current) drug therapy
CPT/HCPCS: 36415; 80053; 84484; 85007; 85027; 87430; 87804; 93005; 99283; A9270

== ENCOUNTER 2019-06-06 06:12 | Inpatient (IN) | payer MEDICARE, MEDICAID ==
[~2019-06-06 06:12] MED LIST: Acetaminophen 325 MG Tab PO SCH; Albuterol 0.083% 2.5 MG/3 ML Neb Soln NEB SCH; Lactated Ringers 1,000 ML IV SCH; Lidocaine 1%/Sod Bicarbonate in NS 8.4% 1 ML Syringe IDERM PRN; Pregabalin 25 MG Cap PO SCH; Sodium Chloride 0.9% 10 ML Syringe FLUSH PRN; oxyCODONE ER 10 MG TAB.ER PO SCH
[2019-06-06] MEDS ORDERED: Iodine/Sodium Iodide 2% Tincture 30 ML Bottle ONE (06:25)
[2019-06-06] MEDS ORDERED: Morphine 4 MG/ML Syringe IVPUSH PRN (06:28)
[2019-06-06] MEDS ORDERED: Ondansetron 4 MG/2 ML SDV IVPUSH PRN (06:28)
[2019-06-06] MEDS ORDERED: Naloxone 0.4 MG/ML SDV IVPUSH PRN (06:28)
--- NOTE | 2019-06-06 06:54 | PCM.PREANE ---
Preanesthetic Assessment - Procedure Proposed Procedure: Right TKA Left knee steroid inj - Anesthesia/Transfusion/Family Hx Anesthesia History: Prior Anesthesia Without Reaction Family History of Anesthesia Reaction: No Transfusion History: No Prior Transfusion(s) - Review of Systems General: No Symptoms Pulmonary: No Symptoms Cardiovascular: Dyspnea on Exertion Gastrointestinal: No Symptoms Neurological: No Symptoms Other: Reports: None - Physical Assessment NPO Status Date: 06/05/19 NPO Status Time: 00:00 Vital Signs: Last Vital Signs Temp 36.9 C 06/06/19 06:20 Pulse 58 L 06/06/19 06:20 Resp 16 06/06/19 06:20 BP 117/77 06/06/19 06:20 Pulse Ox 99 06/06/19 06:20 Height: 1.55 m Weight: 83.9 kg ASA Class: 3 Mental Status: Alert & Oriented x3 Airway Class: Mallampati = 1 Dentition: Reports: [place](s) Thyro-Mental Finger Breadths: 3 Mouth Opening Finger Breadths: 3 ROM/Head Extension: Full Lungs: Clear to Auscultation Cardiovascular: Regular Rate, Regular Rhythm - Lab Values: Laboratory Last Values MRSA (PCR) Negative 05/23/19 14:04 - Imaging/EKG Impressions: SR rate 56 - Allergies Allergies/Adverse Reactions: Allergies Allergy/AdvReac Type Severity Reaction Status Date / Time No Known Allergies Allergy Verified 06/03/19 15:47 - Anesthesia Plan Pre-Op Medication Ordered: None - Acknowledgements Anesthesia Type Planned: Spinal Pt an Appropriate Candidate for the Planned Anesthesia: Yes Alternatives and Risks of Anesthesia Discussed w Pt/Guardian: Yes Pt/Guardian Understands and Agrees with Anesthesia Plan: Yes PreAnesthesia Questionnaire - Past Health History Medical/Surgical History: Denies Medical/Surgical History HEENT History: Reports: Allergic Rhinitis, Impaired Vision, Other (See Below) Other HEENT History: Seasonal allergies Cardiovascular History: Reports: High Cholesterol, Pulmonary Hypertension Respiratory History: Reports: Asthma, Sleep Apnea Other Respiratory History: Uses CPAP Gastrointestinal History: Reports: None Other Gastrointestinal History: gastric bypass Genitourinary History: Reports: None 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: Musculoskeletal History: Reports: Other (See Below) Other Musculoskeletal History: Degenerative joint disease Neurological History: Reports: None Psychiatric History: Reports: None Endocrine/Metabolic History: Reports: Obesity/BMI 30+ Hematologic History: Reports: None Immunologic History: Reports: None Oncologic (Cancer) History: Reports: None Dermatologic History: Reports: None - Infectious Disease History Infectious Disease History: Reports: None - Past Surgical History Head Surgeries/Procedures: Reports: None HEENT Surgical History: Reports: None Cardiovascular Surgical History: Reports: None Respiratory Surgical History: Reports: None GI Surgical History: Reports: Other (See Below) Other GI Surgeries/Procedures: Gastric Bypass, multiple hernia repairs Female Surgical History: Reports: None Endocrine Surgical History: Reports: None Neurological Surgical History: Reports: None Musculoskeletal Surgical History: Reports: None Dermatological Surgical History: Reports: None - SUBSTANCE USE Smoking Status *Q: Never Smoker Tobacco Use Within Last Twelve Months: No Second Hand Smoke Exposure: No Days Per Week of Alcohol Use: 0 Number of Drinks Per Day: 0 Total Drinks Per Week: 0 Recreational Drug Use History: No - HOME MEDS Home Medications: Home Meds Albuterol Sulfate [Proair Hfa] 2 puff INH Q4H PRN 12/15/16 [History] Montelukast [Singulair] 10 mg PO DAILY 11/13/17 [History] Acetaminophen 650 mg PO Q6H PRN 06/03/19 [History] Aspirin [Halfprin] 81 mg PO DAILY 06/03/19 [History] Cholecalciferol (Vitamin D3) [Vitamin D3] 1,000 unit PO TID 06/03/19 [History] Multivitamin [Daily Multiple Vitamin] 1 tab PO DAILY 06/03/19 [History] - CURRENT (IN HOUSE) MEDS Current Meds: Current Medications Acetaminophen (Tylenol) 975 mg PO ONETIME HORTENCIA Stop: 06/06/19 13:00 Last Admin: 06/06/19 06:23 Dose: 975 mg Albuterol (Proventil Neb Soln) 2.5 mg NEB ONETIME HORTENCIA Stop: 06/06/19 18:00 Bisacodyl (Dulcolax) 5 mg PO DAILY PRN PRN Reason: Constipation Morphine Sulfate 8 mg/Epinephrine HCl 0.3 mg/Cefuroxime Sodium 750 mg/Ketorolac Tromethamine 30 mg/Sodium Chloride 27.9 ml 0 mg .XX ONETIME ONE Stop: 06/06/19 06:28 Cyclobenzaprine HCl (Flexeril) 5 mg PO BID PRN PRN Reason: Spasms Docusate Sodium (Colace) 100 mg PO BID HORTENCIA Famotidine (Pepcid) 20 mg PO Q12H [facility] Lactated Ringer's (Ringers, Lactated) 1,000 mls @ 125 mls/hr IV ASDIRECTED [facility] [place] Stop: 06/06/19 23:00 Last Admin: 06/06/19 06:30 Dose: 125 mls/hr Cefazolin Sodium/Dextrose 2 gm (/ Premix) 50 mls @ 100 mls/hr IV Q8H [facility] [place] Stop: 06/06/19 22:59 Ketorolac Tromethamine (Toradol) 15 mg IVPUSH Q6H PRN PRN Reason: Pain Lidocaine/Sodium Bicarbonate (Buffered Lidocaine 1% In Ns 8.4%) 0.25 ml IDERM ONETIME PRN PRN Reason: Prior to IV Start Stop: 06/06/19 18:00 Magnesium Hydroxide (Milk Of Magnesia) 30 ml PO BID PRN PRN Reason: Constipation Morphine Sulfate (Morphine) 2 mg IVPUSH Q2H PRN PRN Reason: Breakthrough Pain Naloxone HCl (Narcan) 0.1 mg IVPUSH Q5M PRN PRN Reason: Oversedation Ondansetron HCl (Zofran) 4 mg IVPUSH Q6H PRN PRN Reason: Nausea/Vomiting Oxycodone HCl (Oxycontin) 10 mg PO ONETIME [facility] [place] Stop: 06/06/19 13:00 Last Admin: 06/06/19 06:23 Dose: 10 mg Oxycodone/Acetaminophen (Percocet 325-5 Mg) 1 - 2 tab PO Q4H PRN PRN Reason: Pain Pregabalin (Lyrica) 50 mg PO ONETIME [facility] [place] Stop: 06/06/19 13:00 Last Admin: 06/06/19 06:23 Dose: 50 mg Rivaroxaban (Xarelto) 10 mg PO DAILY [facility] [place] Senna (Senna) 8.6 mg PO BID PRN PRN Reason: Constipation Sodium Chloride (Saline Flush) 10 ml FLUSH ASDIRECTED PRN PRN Reason: Keep Vein Open Stop: 06/06/19 18:00 Discontinued Medications Acetaminophen (Tylenol) 650 mg PO ONETIME [facility] [place] Stop: 06/06/19 13:00 Bupivacaine HCl (Sensorcaine-Mpf 0.25%) Confirm Administered Dose 30 ml .ROUTE .STK-MED ONE Stop: 06/06/19 06:26 Cefazolin Sodium (Ancef) Confirm Administered Dose 2 gm .ROUTE .STK-MED ONE Stop: 06/06/19 06:25 Iodine (Iodine 2% Mild Tincture) Confirm Administered Dose 30 ml .ROUTE .STK- MED ONE Stop: 06/06/19 06:26 Iodine (Iodine 2% Mild Tincture) Confirm Administered Dose 30 ml .ROUTE .STK- MED ONE Stop: 06/06/19 06:47 Tranexamic Acid (Cyklokapron) Confirm Administered Dose 1,000 mg .ROUTE .STK- MED ONE Stop: 06/06/19 06:25 Vancomycin HCl (Vancomycin) Confirm Administered Dose 1 gm .ROUTE .STK-MED ONE Stop: 06/06/19 06:25
[2019-06-06] MEDS ORDERED: Ondansetron 4 MG/2 ML SDV ONE (07:03)
[2019-06-06] MEDS ORDERED: Midazolam 1 MG/ML 2 ML SDV ONE (07:04)
[2019-06-06] MEDS ORDERED: fentaNYL 100 MCG/2 ML SDV ONE (07:04)
[2019-06-06] MEDS ORDERED: Propofol 200 MG/20 ML SDV ONE ×2 (07:04→08:13)
[2019-06-06] MEDS ORDERED: Lidocaine 1% 4 ML ONE (07:04)
[2019-06-06] MEDS ORDERED: ceFAZolin 1 GM Vial ONE (07:05)
[2019-06-06] MEDS ORDERED: ePHEDrine/Normal Saline 25 MG/5 ML Syringe ONE ×2 (07:23→07:24)
[2019-06-06] MEDS ORDERED: Lactated Ringers 1,000 ML ONE (07:43)
[2019-06-06] MEDS: Iodine/Sodium Iodide 2% Tincture 30 ML Bottle ONE ×2 (07:55→08:25)
[2019-06-06] MEDS: Morphine 8 MG, EPINEPHrine 0.3 MG, Cefuroxime 750 MG, Ketorolac 30 MG, Sodium Chloride ... ONE ×15 (07:56→10:57)
[2019-06-06] MEDS: ceFAZolin 1 GM Vial ONE ×2 (07:56→08:29)
[2019-06-06] MEDS: Bupivacaine 0.25% 10 ML SDV ONE ×4 (07:56→09:00)
[2019-06-06] MEDS: Vancomycin 1 GM SDV ONE ×2 (07:57→08:35)
[2019-06-06] MEDS: Triamcinolone Acetonide 40 MG/ML 1 ML MDV ONE ×2 (07:58→09:00)
[2019-06-06] MEDS ORDERED: EPINEPHrine 1 MG/1 ML Amp ONE (08:48)
[2019-06-06] MEDS ORDERED: Ropivacaine 0.5% 5 MG/ML 30 ML SDV ONE (08:49)
--- NOTE | 2019-06-06 09:15 | PCM.POSTAN ---
POST ANESTHESIA ASSESSMENT - MENTAL STATUS Mental Status: Alert, Oriented - VITAL SIGNS Vital Signs: Last Vital Signs Temp 36.9 C 06/06/19 06:20 Pulse 58 L 06/06/19 06:20 Resp 16 06/06/19 06:20 BP 117/77 06/06/19 06:20 Pulse Ox 98 06/06/19 07:01 - RESPIRATORY Respiratory Status: Respiratory Rate WNL, Airway Patent, O2 Saturation Stable, Supplemental Oxygen - CARDIOVASCULAR CV Status: Pulse Rate WNL, Blood Pressure Stable - GASTROINTESTINAL GI Status: No Symptoms - PAIN Pain Score: 0 - POST OP HYDRATION Hydration Status: Adequate & Stable - OBSERVATIONS Free Text/Narrative:: no anesthesia complications noted
[2019-06-06] MEDS ORDERED: Bisacodyl 5 MG Tab PO PRN (09:30)
[2019-06-06] MEDS ORDERED: Sennosides 8.6 MG Tab PO PRN (09:30)
[2019-06-06] MEDS ORDERED: Cyclobenzaprine 10 MG Tab PO PRN (09:30)
[2019-06-06] MEDS ORDERED: Magnesium Hydroxide 400 MG/5 ML Susp 30 ML Cup PO PRN (09:30)
[2019-06-06] MEDS ORDERED: Ketorolac 15 MG/ML SDV IVPUSH PRN (09:30)
--- NOTE | 2019-06-06 10:06 | PCM.SN ---
- Free Text/Narrative Note: Right selective femoral nerve block at the adductor canal for post-procedure pain control under US guidance requested by Dr. Alexander. Time Out: 919 Start: 919 End: 933 Chart reviewed. Consent signed. Questions answered. Appropriate monitors applied. Time out performed. Right mid-shaft femur identified with ultrasound, scanning medially of femur, the femoral artery in the adductor canal visualized , and the femoral nerve located laterally to the artery. The skin was prepped lateral to the ultrasound probe with chlorahexadine times two. The 21ga 4 insulated block needle was inserted under direct ultrasound guidance into the adductor canal. 25mL of 0.5% ropivacaine with 1:200,000 epinephrine was injected circumferentially around the nerve with intermittent negative aspiration noted. Patient tolerated the procedure well. Sterile technique noted along with sterile gloves, mask, and sterile probe cover. See picture on progress note and vital signs on nurses notes. Block completed in PACU. Kehinde Dobbins CRNA
[2019-06-06] MEDS ORDERED: Morphine 2 MG/ML Syringe IVPUSH PRN (10:16)
--- NOTE | 2019-06-06 10:56 | CR ---
Right knee: Portable AP and crosstable lateral views of the right knee were obtained. Comparison: Prior right knee exam of 01/12/14. Knee prosthesis is seen. Components are aligned. Underlying bony structures are intact. Soft tissue air is noted from the surgical procedure. Impression: 1. Satisfactory postoperative radiographic appearance of recently placed right knee prosthesis. Diagnostic code #2
--- NOTE | 2019-06-06 11:05 | PCM.CONS ---
H&P History of Present Illness - General Date of Service: 06/06/19 Admit Problem/Dx: Admission Diagnosis/Problem Admission Diagnosis/Problem Osteoarthritis of knee Source of Information: Patient, Old Records, Provider, RN Notes Reviewed History Limitations: Reports: Physical Impairment - History of Present Illness Initial Comments - Free Text/Narative: This is a 64 yo white female with past medical hx/o DEBBIE on CPAP, Asthma, HLD, DJD, and Morbid Obesity Status Post Gastric Surgery who underwent status post RTKA with LK Steroid Injection. The patient is clinically stable and her patient is controlled. She denies any acute issues. We were consulted for post- operative care. Right Knee Pain Score (Numeric/FACES): 5 - Related Data Allergies/Adverse Reactions: Allergies Allergy/AdvReac Type Severity Reaction Status Date / Time No Known Allergies Allergy Verified 06/03/19 15:47 Home Medications: Home Meds Albuterol Sulfate [Proair Hfa] 2 puff INH Q4H PRN 12/15/16 [History] Montelukast [Singulair] 10 mg PO DAILY 11/13/17 [History] Acetaminophen 650 mg PO Q6H PRN 06/03/19 [History] Aspirin [Halfprin] 81 mg PO DAILY 06/03/19 [History] Cholecalciferol (Vitamin D3) [Vitamin D3] 1,000 unit PO TID 06/03/19 [History] Multivitamin [Daily Multiple Vitamin] 1 tab PO DAILY 06/03/19 [History] Advair. 2 puff IH BID 06/06/19 [History] atorvaSTATin [Lipitor] 10 mg PO DAILY 06/06/19 [History] Acetaminophen/oxyCODONE [Percocet 325-5 MG] 1 - 2 tab PO Q4H PRN #60 tablet [Rx] Bisacodyl [Dulcolax] 5 mg PO DAILY PRN tablet 06/07/19 [Rx] Cyclobenzaprine [Flexeril] 5 mg PO BID PRN #20 tablet 06/07/19 [Rx] Docusate Sodium [Colace] 100 mg PO BID cap 06/07/19 [Rx] Famotidine [Pepcid] 20 mg PO Q12H tablet 06/07/19 [Rx] Magnesium Hydroxide [Milk of Magnesia] 30 ml PO BID PRN cup 06/07/19 [Rx] Rivaroxaban [Xarelto] 10 mg PO DAILY #30 tablet 06/07/19 [Rx] Sennosides [Senna] 8.6 mg PO BID PRN tablet 06/07/19 [Rx] Past Medical History - Past Health History Medical/Surgical History: Denies Medical/Surgical History HEENT History: Reports: Allergic Rhinitis, Impaired Vision, Other (See Below) Other HEENT History: Seasonal allergies Cardiovascular History: Reports: High Cholesterol, Pulmonary Hypertension Respiratory History: Reports: Asthma, Sleep Apnea Other Respiratory History: Uses CPAP Gastrointestinal History: Reports: None Other Gastrointestinal History: gastric bypass Genitourinary History: Reports: None [employer]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: Musculoskeletal History: Reports: Osteoarthritis, Other (See Below) Other Musculoskeletal History: Degenerative joint disease Neurological History: Reports: None Psychiatric History: Reports: None Endocrine/Metabolic History: Reports: Obesity/BMI 30+ Hematologic History: Reports: None Immunologic History: Reports: None Oncologic (Cancer) History: Reports: None Dermatologic History: Reports: None - Infectious Disease History Infectious Disease History: Reports: None - Past Surgical History Head Surgeries/Procedures: Reports: None HEENT Surgical History: Reports: None Cardiovascular Surgical History: Reports: None Respiratory Surgical History: Reports: None GI Surgical History: Reports: Other (See Below) Other GI Surgeries/Procedures: Gastric Bypass, multiple hernia repairs Female Surgical History: Reports: None Endocrine Surgical History: Reports: None Neurological Surgical History: Reports: None Musculoskeletal Surgical History: Reports: None Dermatological Surgical History: Reports: None Social & Family History - Family History Family Medical History: Noncontributory Cardiac: Reports: PVD/COD, Other (See Below) Other Cardiac Family History: CVA - Tobacco Use Smoking Status *Q: Never Smoker Second Hand Smoke Exposure: No - Caffeine Use Caffeine Use: Reports: Coffee - Alcohol Use Days Per Week of Alcohol Use: 0 Number of Drinks Per Day: 0 Total Drinks Per Week: 0 - Recreational Drug Use Recreational Drug Use: No Drug Use in Last 12 Months: No - Living Situation & Occupation Living situation: Reports: , with Spouse H&P Review of Systems - Review of Systems: Review Of Systems: See Below General: Denies: Fever, Chills, Malaise, Weakness, Fatigue HEENT: Reports: No Symptoms Pulmonary: Denies: Shortness of Breath Cardiovascular: Denies: Chest Pain, Dyspnea on Exertion, Lightheadedness Gastrointestinal: Denies: Abdominal Pain, Nausea, Vomiting Genitourinary: Reports: No Symptoms Musculoskeletal: Reports: No Symptoms Skin: Denies: Pallor, Bruising, Rash Psychiatric: Denies: Depression, Anxiety, Agitation, Hallucinations, Suicidal Ideation, Homicidal Ideation, Hallucinations (Auditory), Hallucinations (Visual) Neurological: Reports: Difficulty Walking, Gait Disturbance. Denies: Confusion , Weakness Hematologic/Lymphatic: Reports: No Symptoms Immunologic: Reports: No Symptoms Exam - Exam Exam: See Below - Vital Signs Vital Signs: Last Vital Signs Temp 36.9 C 06/06/19 06:20 Pulse 58 L 06/06/19 06:20 Resp 16 06/06/19 06:20 BP 117/77 06/06/19 06:20 Pulse Ox 98 06/06/19 07:01 Weight: 83.869 kg - Exam General: Alert, Oriented, Cooperative HEENT: Conjunctiva Clear, EACs Clear, EOMI, Hearing Intact, Mucosa Moist & [place] , Nares Patent, Normal Nasal Septum, Posterior Pharynx Clear, Pupils Equal, Pupils Reactive Neck: Supple, Trachea Midline Lungs: Clear to Auscultation, Normal Respiratory Effort Cardiovascular: Regular Rate, Regular Rhythm GI/Abdominal Exam: Normal Bowel Sounds, Soft, Non-Tender, No Organomegaly, No Distention, No Abnormal Bruit, No Mass (Female) Exam: Other (indwelling eason catheter) Rectal (Female) Exam: Deferred Back Exam: Normal Inspection, Decreased Range of Motion Extremities: Normal Inspection, Normal Range of Motion, Non-Tender, No Pedal Edema, Normal Capillary Refill, Limited Range of Motion Peripheral Pulses: 2+: Dorsalis Pedis (L), Dorsalis Pedis (R) Skin: Warm, Dry, Intact Skin Alteration Location (Drawings Not To Scale): 1 - wrapped with breg [facility] - Patient Data Lab Results Last 24 hrs: Laboratory Results - last 24 hr 06/06/19 Range/Units 06:33 PT 10.3 (9.7-12.0) SECONDS INR 0.94 APTT 24 (22-31) SECONDS Result Diagrams: 06/07/19 05:50 06/07/19 05:50 Consult PN Assessment/Plan POD#: 0 Procedures: Procedures ASSAY OF BLOOD/URIC ACID (01/12/14) ASSAY OF GGT (09/23/17) ASSAY OF LACTIC ACID (06/10/16) ASSAY OF LIPASE (10/13/17) ASSAY OF NATRIURETIC PEPTIDE (04/29/16) ASSAY OF TROPONIN QUANT (10/22/18) BL SMEAR W/DIFF WBC COUNT (10/22/18) BLOOD CULTURE FOR BACTERIA (10/13/17) BLOOD GASES ANY COMBINATION (01/26/16) C-REACTIVE PROTEIN (09/23/17) CARDIOVASCULAR STRESS TEST (03/04/16) CHEST X-RAY 1 VIEW FRONTAL (06/10/16) CO/MEMBANE DIFFUSE CAPACITY (04/03/16) COMPLETE CBC AUTOMATED (10/22/18) COMPLETE CBC W/AUTO DIFF WBC (10/13/17) COMPREHEN METABOLIC PANEL (10/22/18) CRITICAL CARE ADDL 30 MIN (01/26/16) CRITICAL CARE FIRST HOUR (01/26/16) CT ABD & PELV W/CONTRAST (10/13/17) CT ANGIOGRAPHY CHEST (06/10/16) CT HEAD/BRAIN W/O DYE (01/26/16) CT MAXILLOFACIAL W/O DYE (01/25/16) CULTURE SCREEN ONLY (06/10/16) ECHO EXAM OF ABDOMEN (09/23/17) ELECTROCARDIOGRAM TRACING (10/22/18) EMERGENCY DEPT VISIT (10/22/18) EMERGENCY DEPT VISIT (10/13/17) EMERGENCY DEPT VISIT (06/10/16) EMERGENCY DEPT VISIT (04/29/16) EMERGENCY DEPT VISIT (01/25/16) EMERGENCY DEPT VISIT (01/12/14) EVALUATION OF WHEEZING (04/03/16) FIBRIN DEGRADATION QUANT (09/23/17) HT MUSCLE IMAGE SPECT MULT (03/04/16) HYDRATE IV INFUSION ADD-ON (10/13/17) INFLUENZA ASSAY W/OPTIC (10/22/18) INSERT EMERGENCY AIRWAY (01/26/16) INSERT TEMP BLADDER CATH (01/26/16) POLYSOM 6/>YRS CPAP 4/> PARM (04/06/16) PROTHROMBIN TIME (12/15/16) ROUTINE VENIPUNCTURE (10/22/18) STREP A AG IA (10/22/18) THER/DIAG CONCURRENT INF (10/13/17) THER/PROPH/DIAG INJ IV PUSH (09/23/17) THER/PROPH/DIAG IV INF ADDON (01/26/16) THER/PROPH/DIAG IV INF INIT (10/13/17) THROMBOPLASTIN TIME PARTIAL (04/29/16) TX/PRO/DX INJ NEW DRUG ADDON (10/13/17) TX/PRO/DX INJ SAME DRUG CREW TEAM MEMBER (10/13/17) URINALYSIS AUTO W/SCOPE (10/13/17) VENT MGMT INPAT INIT DAY (01/26/16) WITHDRAWAL OF ARTERIAL BLOOD (01/26/16) X-RAY EXAM CHEST 2 VIEWS (09/23/17) X-RAY EXAM KNEE 4 OR MORE (01/12/14) X-RAY EXAM OF ABDOMEN (12/15/16) Problem List Initiated/Reviewed/Updated: Yes Plan: Assessment/Plan: Acute: S/p Right TKA with Left Knee Steroid Injection - Defer to Primary Team B/L Knee OA - Pain Management defer to Primary Team Post-Operative Care - Hypotensive after surgery but clinically stable - Pain is controlled and no GI issues Chronic: DEBBIE on CPAP, Asthma, HLD, DJD, Morbid Obesity Status Post Gastric Surgery Plan: From the hospitalist standpoint, patient is doing relatively well. We recommend monitoring her vitals, resume home medications, routine AM labs and CPAP at bedtime. Any changes or further recommendations will be based on the patient's course. Thank you for the opportunity to participate in the management of this patient. We will follow her along with you. Requesting Provider: Dr. Alexander Date Consult Requested: 06/06/19 Reason for Consult: Post-operative Care Patient History Reviewed: Yes Admission H&P Reviewed: Yes Consult Result/Summary:: Stable Notified Requestor: Yes Time Spent (in minutes): 15
[2019-06-06] MEDS: Acetaminophen/oxyCODONE 325-5 MG Tab PO PRN ×2 (12:43→20:36)
[2019-06-06] MEDS: ceFAZolin 2 GM in Premix Bag 1 BAG IV SCH ×2 (15:29→23:01)
[2019-06-06] MEDS ORDERED: Albuterol 6.7 GM Inhaler INH PRN (15:54)
[2019-06-06] MEDS: Cholecalciferol (Vitamin D3) 25 MCG Tab PO SCH (20:37)
[2019-06-06] MEDS: Docusate Sodium 100 MG Cap PO SCH (20:37)
[2019-06-06] MEDS: Famotidine 20 MG Tab PO SCH (20:37)
[2019-06-07] MEDS: ceFAZolin 2 GM in Premix Bag 1 BAG IV SCH (06:50)
--- NOTE | 2019-06-07 07:31 | PCM.CONSN ---
- General Info Date of Service: 06/07/19 Admission Dx/Problem (Free Text): Admission Diagnosis/Problem Admission Diagnosis/Problem Osteoarthritis of knee Subjective Update: Follow Up Functional Status: Reports: Pain Controlled, Tolerating Diet, Ambulating, Urinating. Denies: New Symptoms - Review of Systems General: Denies: Fever, Weakness, Fatigue, Malaise, Chills HEENT: Reports: No Symptoms Pulmonary: Denies: Shortness of Breath, Pleuritic Chest Pain, Cough Cardiovascular: Denies: Chest Pain, Dyspnea on Exertion, Lightheadedness Gastrointestinal: Denies: Abdominal Pain, Nausea, Vomiting Genitourinary: Reports: No Symptoms Musculoskeletal: Reports: No Symptoms Skin: Reports: No Symptoms Neurological: Denies: Confusion, Numbness, Syncope, Difficulty Walking, Weakness , Gait Disturbance Psychiatric: Denies: Confusion, Depression, Mood Lability, Anxiety, Agitation, Cravings, Hallucinations, Suicidal Ideation Systems Review Comment:: No overnight or acute issues. - Patient Data Vitals - Most Recent: Last Vital Signs Temp 36.5 C 06/07/19 04:43 Pulse 56 L 06/07/19 04:43 Resp 14 06/07/19 04:43 BP 108/55 L 06/07/19 04:43 Pulse Ox 95 06/07/19 04:43 Weight - Most Recent: 86.455 kg I&O - Last 24 Hours: Intake & Output 06/06/19 06/07/19 06/07/19 22:59 06:59 14:59 Intake Total 1630 500 Output Total 800 450 Balance 830 50 Lab Results Last 24 Hours: Laboratory Results - last 24 hr 06/07/19 06/07/19 Range/Units 05:50 05:50 WBC 9.34 (3.98-10.04) K/mm3 RBC 3.72 L (3.98-5.22) M/mm3 Hgb 10.7 L (11.2-15.7) gm/dl Hct 33.6 L (34.1-44.9) % MCV 90.3 D (79.4-94.8) fl MCH 28.8 (25.6-32.2) pg MCHC 31.8 L (32.2-35.5) g/dl RDW Std Deviation 43.0 (36.4-46.3) fL Plt Count 201 (182-369) K/mm3 MPV 9.9 (9.4-12.3) fl Sodium 143 (136-145) mEq/L Potassium 4.3 (3.5-5.1) mEq/L Chloride 108 H (98-107) mEq/L Carbon Dioxide 25 (21-32) mEq/L Anion Gap 14.3 (5-15) BUN 23 H (7-18) mg/dL Creatinine 0.7 (0.55-1.02) mg/dL Est Cr Clr Drug Dosing 61.27 mL/min Estimated GFR (MDRD) > 60 (>60) mL/min BUN/Creatinine Ratio 32.9 H (14-18) Glucose 124 H (80-115) mg/dL Calcium 9.1 (8.5-10.1) mg/dL Total Bilirubin 0.4 (0.2-1.0) mg/dL AST 15 (15-37) U/L ALT 27 (14-59) U/L Alkaline Phosphatase 55 (46-116) U/L Total Protein 5.8 L (6.4-8.2) g/dl Albumin 3.0 L (3.4-5.0) g/dl Globulin 2.8 gm/dL Albumin/Globulin Ratio 1.1 (1-2) Med Orders - Current: Current Medications Albuterol (Proventil Hfa) 0 gm INH Q4H PRN PRN Reason: Shortness of Breath Aspirin (Halfprin) 81 mg PO DAILY [facility] Bisacodyl (Dulcolax) 5 mg PO DAILY PRN PRN Reason: Constipation Cholecalciferol (Vitamin D3) 25 mcg PO TID [facility] Last Admin: 06/06/19 20:37 Dose: 25 mcg Cyclobenzaprine HCl (Flexeril) 5 mg PO BID PRN PRN Reason: Spasms Last Admin: 06/06/19 18:39 Dose: 5 mg Docusate Sodium (Colace) 100 mg PO BID [facility] Last Admin: 06/06/19 20:37 Dose: 100 mg Famotidine (Pepcid) 20 mg PO Q12H [facility] Last Admin: 06/06/19 20:37 Dose: 20 mg Ketorolac Tromethamine (Toradol) 15 mg IVPUSH Q6H PRN PRN Reason: Pain Last Admin: 06/06/19 23:18 Dose: 15 mg Magnesium Hydroxide (Milk Of Magnesia) 30 ml PO BID PRN PRN Reason: Constipation Montelukast Sodium (Singulair) 10 mg PO DAILY [facility] Morphine Sulfate (Morphine) 2 mg IVPUSH Q2H PRN PRN Reason: Breakthrough Pain Multivitamins (Thera) 1 each PO DAILY [facility] Naloxone HCl (Narcan) 0.1 mg IVPUSH Q5M PRN PRN Reason: Oversedation Ondansetron HCl (Zofran) 4 mg IVPUSH Q6H PRN PRN Reason: Nausea/Vomiting Oxycodone/Acetaminophen (Percocet 325-5 Mg) 1 - 2 tab PO Q4H PRN PRN Reason: Pain Last Admin: 06/06/19 20:36 Dose: 1 tab Rivaroxaban (Xarelto) 10 mg PO DAILY [facility] Senna (Senna) 8.6 mg PO BID PRN PRN Reason: Constipation Simvastatin (Zocor) 10 mg PO DAILY [facility] Discontinued Medications Acetaminophen (Tylenol) 650 mg PO ONETIME [facility] Stop: 06/06/19 13:00 Acetaminophen (Tylenol) 975 mg PO ONETIME [facility] Stop: 06/06/19 13:00 Last Admin: 06/06/19 06:23 Dose: 975 mg Albuterol (Proventil Neb Soln) 2.5 mg NEB ONETIME [facility] Stop: 06/06/19 18:00 Last Admin: 06/06/19 06:55 Dose: 2.5 mg Bupivacaine HCl (Sensorcaine-Mpf 0.25%) Confirm Administered Dose 30 ml .ROUTE .STK-MED ONE Stop: 06/06/19 06:26 Last Admin: 06/06/19 08:32 Dose: 30 ml Bupivacaine HCl (Sensorcaine-Mpf 0.25%) Confirm Administered Dose 10 ml .ROUTE .STK-MED ONE Stop: 06/06/19 07:02 Last Admin: 06/06/19 09:00 Dose: 4 ml Cefazolin Sodium (Ancef) Confirm Administered Dose 2 gm .ROUTE .STK-MED ONE Stop: 06/06/19 06:25 Last Admin: 06/06/19 08:29 Dose: 2 gm Cefazolin Sodium (Ancef) Confirm Administered Dose 2 gm .ROUTE .STK-MED ONE Stop: 06/06/19 07:06 Morphine Sulfate 8 mg/Epinephrine HCl 0.3 mg/Cefuroxime Sodium 750 mg/Ketorolac Tromethamine 30 mg/Sodium Chloride 27.9 ml 0 mg .XX ONETIME ONE Stop: 06/06/19 07:46 Last Admin: 06/06/19 10:57 Dose: Not Given Ephedrine Sulfate (Ephedrine In Ns) Confirm Administered Dose 25 mg .ROUTE .STK- MED ONE Stop: 06/06/19 07:24 Ephedrine Sulfate (Ephedrine In Ns) Confirm Administered Dose 25 mg .ROUTE .STK- MED ONE Stop: 06/06/19 07:25 Epinephrine HCl (Adrenalin) Confirm Administered Dose 1 mg .ROUTE .STK-MED ONE Stop: 06/06/19 08:49 Fentanyl (Sublimaze) Confirm Administered Dose 100 mcg .ROUTE .STK-MED ONE Stop: 06/06/19 07:05 Lactated Ringer's (Ringers, Lactated) 1,000 mls @ 125 mls/hr IV ASDIRECTED [facility] Stop: 06/06/19 23:00 Last Admin: 06/06/19 06:30 Dose: 125 mls/hr Cefazolin Sodium/Dextrose 2 gm (/ Premix) 50 mls @ 100 mls/hr IV Q8H [facility] Stop: 06/07/19 07:29 Last Admin: 06/07/19 06:50 Dose: 100 mls/hr Lidocaine HCl (Xylocaine-Mpf 1%) Confirm Administered Dose 4 mls @ as directed .ROUTE .STK-MED ONE Stop: 06/06/19 07:05 Lactated Ringer's (Ringers, Lactated) Confirm Administered Dose 1,000 mls @ as directed .ROUTE .STK-MED ONE Stop: 06/06/19 07:44 Iodine (Iodine 2% Mild Tincture) Confirm Administered Dose 30 ml .ROUTE .STK- MED ONE Stop: 06/06/19 06:26 Iodine (Iodine 2% Mild Tincture) Confirm Administered Dose 30 ml .ROUTE .STK- MED ONE Stop: 06/06/19 06:47 Last Admin: 06/06/19 08:25 Dose: 30 ml Lidocaine/Sodium Bicarbonate (Buffered Lidocaine 1% In Ns 8.4%) 0.25 ml IDERM ONETIME PRN PRN Reason: Prior to IV Start Stop: 06/06/19 18:00 Last Admin: 06/06/19 06:29 Dose: 0.25 ml Midazolam HCl (Versed 1 Mg/Ml) Confirm Administered Dose 2 mg .ROUTE .STK-MED ONE Stop: 06/06/19 07:05 Morphine Sulfate (Morphine) 2 mg IVPUSH Q2H PRN PRN Reason: Breakthrough Pain Ondansetron HCl (Zofran) Confirm Administered Dose 4 mg .ROUTE .STK-MED ONE Stop: 06/06/19 07:04 Oxycodone HCl (Oxycontin) 10 mg PO ONETIME [facility] Stop: 06/06/19 13:00 Last Admin: 06/06/19 06:23 Dose: 10 mg Pregabalin (Lyrica) 50 mg PO ONETIME [facility] Stop: 06/06/19 13:00 Last Admin: 06/06/19 06:23 Dose: 50 mg Propofol (Diprivan 20 Ml) Confirm Administered Dose 200 mg .ROUTE .STK-MED ONE Stop: 06/06/19 07:05 Propofol (Diprivan 20 Ml) Confirm Administered Dose 200 mg .ROUTE .STK-MED ONE Stop: 06/06/19 08:14 Ropivacaine (Naropin 0.5%) Confirm Administered Dose 30 ml .ROUTE .STK-MED ONE Stop: 06/06/19 08:50 Sodium Chloride (Saline Flush) 10 ml FLUSH ASDIRECTED PRN PRN Reason: Keep Vein Open Stop: 06/06/19 18:00 Tranexamic Acid (Cyklokapron) Confirm Administered Dose 1,000 mg .ROUTE .STK- MED ONE Stop: 06/06/19 06:25 Last Admin: 06/06/19 08:40 Dose: 1,000 mg Triamcinolone Acetonide (Kenalog-40) Confirm Administered Dose 80 mg .ROUTE .STK -MED ONE Stop: 06/06/19 07:02 Last Admin: 06/06/19 09:00 Dose: 80 mg Vancomycin HCl (Vancomycin) Confirm Administered Dose 1 gm .ROUTE .STK-MED ONE Stop: 06/06/19 06:25 Last Admin: 06/06/19 08:35 Dose: 1 gm - Exam General: Alert, Oriented, Cooperative, No Acute Distress HEENT: Pupils Equal, Pupils Reactive, EOMI, Mucous Membr. Moist/[place] Neck: Supple Lungs: Clear to Auscultation, Normal Respiratory Effort Cardiovascular: Regular Rate, Regular Rhythm GI/Abdominal Exam: Normal Bowel Sounds, Soft, Non-Tender, No Organomegaly, No Distention, No Abnormal Bruit (Female) Exam: Deferred Back Exam: Normal Inspection, Decreased Range of Motion Extremities: Normal Inspection, Normal Range of Motion, Non-Tender, No Pedal Edema, Normal Capillary Refill, Limited Range of Motion (right lower extremity) Peripheral Pulses: 2+: Posterior Tibial (L), Posterior Tibial (R), Dorsalis Pedis (L), Dorsalis Pedis (R) Skin: Warm, Dry, Intact Neurological: No New Focal Deficit. No: Normal Gait Psy/Mental Status: Alert, Normal Affect, Normal Mood Consult PN Assessment/Plan POD#: 1 Procedures: Procedures ASSAY OF BLOOD/URIC ACID (01/12/14) ASSAY OF GGT (09/23/17) ASSAY OF LACTIC ACID (06/10/16) ASSAY OF LIPASE (10/13/17) ASSAY OF NATRIURETIC PEPTIDE (04/29/16) ASSAY OF TROPONIN QUANT (10/22/18) BL SMEAR W/DIFF WBC COUNT (10/22/18) BLOOD CULTURE FOR BACTERIA (10/13/17) BLOOD GASES ANY COMBINATION (01/26/16) C-REACTIVE PROTEIN (09/23/17) CARDIOVASCULAR STRESS TEST (03/04/16) CHEST X-RAY 1 VIEW FRONTAL (06/10/16) CO/MEMBANE DIFFUSE CAPACITY (04/03/16) COMPLETE CBC AUTOMATED (10/22/18) COMPLETE CBC W/AUTO DIFF WBC (10/13/17) COMPREHEN METABOLIC PANEL (10/22/18) CRITICAL CARE ADDL 30 MIN (01/26/16) CRITICAL CARE FIRST HOUR (01/26/16) CT ABD & PELV W/CONTRAST (10/13/17) CT ANGIOGRAPHY CHEST (06/10/16) CT HEAD/BRAIN W/O DYE (01/26/16) CT MAXILLOFACIAL W/O DYE (01/25/16) CULTURE SCREEN ONLY (06/10/16) ECHO EXAM OF ABDOMEN (09/23/17) ELECTROCARDIOGRAM TRACING (10/22/18) EMERGENCY DEPT VISIT (10/22/18) EMERGENCY DEPT VISIT (10/13/17) EMERGENCY DEPT VISIT (06/10/16) EMERGENCY DEPT VISIT (04/29/16) EMERGENCY DEPT VISIT (01/25/16) EMERGENCY DEPT VISIT (01/12/14) EVALUATION OF WHEEZING (04/03/16) FIBRIN DEGRADATION QUANT (09/23/17) HT MUSCLE IMAGE SPECT MULT (03/04/16) HYDRATE IV INFUSION ADD-ON (10/13/17) INFLUENZA ASSAY W/OPTIC (10/22/18) INSERT EMERGENCY AIRWAY (01/26/16) INSERT TEMP BLADDER CATH (01/26/16) POLYSOM 6/>YRS CPAP 4/> PARM (04/06/16) PROTHROMBIN TIME (12/15/16) ROUTINE VENIPUNCTURE (10/22/18) STREP A AG IA (10/22/18) THER/DIAG CONCURRENT INF (10/13/17) THER/PROPH/DIAG INJ IV PUSH (09/23/17) THER/PROPH/DIAG IV INF ADDON (01/26/16) THER/PROPH/DIAG IV INF INIT (10/13/17) THROMBOPLASTIN TIME PARTIAL (04/29/16) TX/PRO/DX INJ NEW DRUG ADDON (10/13/17) TX/PRO/DX INJ SAME DRUG VEHICLE WASHER (10/13/17) URINALYSIS AUTO W/SCOPE (10/13/17) VENT MGMT INPAT INIT DAY (01/26/16) WITHDRAWAL OF ARTERIAL BLOOD (01/26/16) X-RAY EXAM CHEST 2 VIEWS (09/23/17) X-RAY EXAM KNEE 4 OR MORE (01/12/14) X-RAY EXAM OF ABDOMEN (12/15/16) Problem List Initiated/Reviewed/Updated: Yes Plan: Assessment/Plan: Acute: S/p Right TKA with Left Knee Steroid Injection, Stable - Defer to Primary Team B/L Knee OA - Pain Management defer to Primary Team Post-Operative Care - Hypotension resolved - Pain is controlled and no acute issues Chronic: DEBBIE on CPAP, Asthma, HLD, DJD, Morbid Obesity Status Post Gastric Surgery Plan: From the hospitalist standpoint, patient continues to do well. We have no other recommendations but to continue current treatment.
--- NOTE | 2019-06-07 07:52 | PCM48HPAN ---
Post Anesthesia Note - EVALUATION WITHIN 48HRS OF ANESTHETIC Vital Signs in Normal Range: Yes Patient Participated in Evaluation: Yes Respiratory Function Stable: Yes Airway Patent: Yes Cardiovascular Function Stable: Yes Hydration Status Stable: Yes Pain Control Satisfactory: Yes Nausea and Vomiting Control Satisfactory: Yes Mental Status Recovered: Yes Vital Signs: Last Vital Signs Temp 36.5 C 06/07/19 04:43 Pulse 56 L 06/07/19 04:43 Resp 14 06/07/19 04:43 BP 108/55 L 06/07/19 04:43 Pulse Ox 95 06/07/19 04:43 - COMMENTS/OBSERVATIONS Free Text/Narrative:: no anesthesia complications noted
--- NOTE | 2019-06-07 08:23 | PCM.SURGPN ---
- General Info Date of Service: 06/07/19 POD#: 1 Functional Status: Reports: Pain Controlled, Tolerating Diet, Ambulating, Urinating, Incentive Spirometry, Other (The pt states she is doing well. Pt states left knee pain is significantly improved.) - Patient Data Vitals - Most Recent: Last Vital Signs Temp 97.7 F 06/07/19 04:43 Pulse 56 L 06/07/19 04:43 Resp 14 06/07/19 04:43 BP 108/55 L 06/07/19 04:43 Pulse Ox 95 06/07/19 04:43 Weight - Most Recent: 190 lb 9.6 oz I&O - Last 24 Hours: Intake & Output 06/06/19 06/07/19 06/07/19 22:59 06:59 14:59 Intake Total 1630 500 Output Total 800 450 Balance 830 50 Lab Results Last 24 Hrs: Laboratory Results - last 24 hr 06/07/19 06/07/19 Range/Units 05:50 05:50 WBC 9.34 (3.98-10.04) K/mm3 RBC 3.72 L (3.98-5.22) M/mm3 Hgb 10.7 L (11.2-15.7) gm/dl Hct 33.6 L (34.1-44.9) % MCV 90.3 D (79.4-94.8) fl MCH 28.8 (25.6-32.2) pg MCHC 31.8 L (32.2-35.5) g/dl RDW Std Deviation 43.0 (36.4-46.3) fL Plt Count 201 (182-369) K/mm3 MPV 9.9 (9.4-12.3) fl Sodium 143 (136-145) mEq/L Potassium 4.3 (3.5-5.1) mEq/L Chloride 108 H (98-107) mEq/L Carbon Dioxide 25 (21-32) mEq/L Anion Gap 14.3 (5-15) BUN 23 H (7-18) mg/dL Creatinine 0.7 (0.55-1.02) mg/dL Est Cr Clr Drug Dosing 61.27 mL/min Estimated GFR (MDRD) > 60 (>60) mL/min BUN/Creatinine Ratio 32.9 H (14-18) Glucose 124 H (80-115) mg/dL Calcium 9.1 (8.5-10.1) mg/dL Total Bilirubin 0.4 (0.2-1.0) mg/dL AST 15 (15-37) U/L ALT 27 (14-59) U/L Alkaline Phosphatase 55 (46-116) U/L Total Protein 5.8 L (6.4-8.2) g/dl Albumin 3.0 L (3.4-5.0) g/dl Globulin 2.8 gm/dL Albumin/Globulin Ratio 1.1 (1-2) Med Orders - Current: Current Medications Albuterol (Proventil Hfa) 0 gm INH Q4H PRN PRN Reason: Shortness of Breath Aspirin (Halfprin) 81 mg PO DAILY [facility] Bisacodyl (Dulcolax) 5 mg PO DAILY PRN PRN Reason: Constipation Cholecalciferol (Vitamin D3) 25 mcg PO TID [facility] Last Admin: 06/06/19 20:37 Dose: 25 mcg Cyclobenzaprine HCl (Flexeril) 5 mg PO BID PRN PRN Reason: Spasms Last Admin: 06/06/19 18:39 Dose: 5 mg Docusate Sodium (Colace) 100 mg PO BID [facility] Last Admin: 06/06/19 20:37 Dose: 100 mg Famotidine (Pepcid) 20 mg PO Q12H [facility] Last Admin: 06/06/19 20:37 Dose: 20 mg Ketorolac Tromethamine (Toradol) 15 mg IVPUSH Q6H PRN PRN Reason: Pain Last Admin: 06/06/19 23:18 Dose: 15 mg Magnesium Hydroxide (Milk Of Magnesia) 30 ml PO BID PRN PRN Reason: Constipation Montelukast Sodium (Singulair) 10 mg PO DAILY [facility] Morphine Sulfate (Morphine) 2 mg IVPUSH Q2H PRN PRN Reason: Breakthrough Pain Multivitamins (Thera) 1 each PO DAILY [facility] Naloxone HCl (Narcan) 0.1 mg IVPUSH Q5M PRN PRN Reason: Oversedation Ondansetron HCl (Zofran) 4 mg IVPUSH Q6H PRN PRN Reason: Nausea/Vomiting Oxycodone/Acetaminophen (Percocet 325-5 Mg) 1 - 2 tab PO Q4H PRN PRN Reason: Pain Last Admin: 06/06/19 20:36 Dose: 1 tab Rivaroxaban (Xarelto) 10 mg PO DAILY [facility] Senna (Senna) 8.6 mg PO BID PRN PRN Reason: Constipation Simvastatin (Zocor) 10 mg PO DAILY [facility] Discontinued Medications Acetaminophen (Tylenol) 650 mg PO ONETIME [facility] Stop: 06/06/19 13:00 Acetaminophen (Tylenol) 975 mg PO ONETIME [facility] Stop: 06/06/19 13:00 Last Admin: 06/06/19 06:23 Dose: 975 mg Albuterol (Proventil Neb Soln) 2.5 mg NEB ONETIME [facility] Stop: 06/06/19 18:00 Last Admin: 06/06/19 06:55 Dose: 2.5 mg Bupivacaine HCl (Sensorcaine-Mpf 0.25%) Confirm Administered Dose 30 ml .ROUTE .STK-MED ONE Stop: 06/06/19 06:26 Last Admin: 06/06/19 08:32 Dose: 30 ml Bupivacaine HCl (Sensorcaine-Mpf 0.25%) Confirm Administered Dose 10 ml .ROUTE .STK-MED ONE Stop: 06/06/19 07:02 Last Admin: 06/06/19 09:00 Dose: 4 ml Cefazolin Sodium (Ancef) Confirm Administered Dose 2 gm .ROUTE .STK-MED ONE Stop: 06/06/19 06:25 Last Admin: 06/06/19 08:29 Dose: 2 gm Cefazolin Sodium (Ancef) Confirm Administered Dose 2 gm .ROUTE .STK-MED ONE Stop: 06/06/19 07:06 Morphine Sulfate 8 mg/Epinephrine HCl 0.3 mg/Cefuroxime Sodium 750 mg/Ketorolac Tromethamine 30 mg/Sodium Chloride 27.9 ml 0 mg .XX ONETIME ONE Stop: 06/06/19 07:46 Last Admin: 06/06/19 10:57 Dose: Not Given Ephedrine Sulfate (Ephedrine In Ns) Confirm Administered Dose 25 mg .ROUTE .STK- MED ONE Stop: 06/06/19 07:24 Ephedrine Sulfate (Ephedrine In Ns) Confirm Administered Dose 25 mg .ROUTE .STK- MED ONE Stop: 06/06/19 07:25 Epinephrine HCl (Adrenalin) Confirm Administered Dose 1 mg .ROUTE .STK-MED ONE Stop: 06/06/19 08:49 Fentanyl (Sublimaze) Confirm Administered Dose 100 mcg .ROUTE .STK-MED ONE Stop: 06/06/19 07:05 Lactated Ringer's (Ringers, Lactated) 1,000 mls @ 125 mls/hr IV ASDIRECTED [facility] Stop: 06/06/19 23:00 Last Admin: 06/06/19 06:30 Dose: 125 mls/hr Cefazolin Sodium/Dextrose 2 gm (/ Premix) 50 mls @ 100 mls/hr IV Q8H [facility] Stop: 06/07/19 07:29 Last Admin: 06/07/19 06:50 Dose: 100 mls/hr Lidocaine HCl (Xylocaine-Mpf 1%) Confirm Administered Dose 4 mls @ as directed .ROUTE .STK-MED ONE Stop: 06/06/19 07:05 Lactated Ringer's (Ringers, Lactated) Confirm Administered Dose 1,000 mls @ as directed .ROUTE .STK-MED ONE Stop: 06/06/19 07:44 Iodine (Iodine 2% Mild Tincture) Confirm Administered Dose 30 ml .ROUTE .STK- MED ONE Stop: 06/06/19 06:26 Iodine (Iodine 2% Mild Tincture) Confirm Administered Dose 30 ml .ROUTE .STK- MED ONE Stop: 06/06/19 06:47 Last Admin: 06/06/19 08:25 Dose: 30 ml Lidocaine/Sodium Bicarbonate (Buffered Lidocaine 1% In Ns 8.4%) 0.25 ml IDERM ONETIME PRN PRN Reason: Prior to IV Start Stop: 06/06/19 18:00 Last Admin: 06/06/19 06:29 Dose: 0.25 ml Midazolam HCl (Versed 1 Mg/Ml) Confirm Administered Dose 2 mg .ROUTE .STK-MED ONE Stop: 06/06/19 07:05 Morphine Sulfate (Morphine) 2 mg IVPUSH Q2H PRN PRN Reason: Breakthrough Pain Ondansetron HCl (Zofran) Confirm Administered Dose 4 mg .ROUTE .STK-MED ONE Stop: 06/06/19 07:04 Oxycodone HCl (Oxycontin) 10 mg PO ONETIME [facility] Stop: 06/06/19 13:00 Last Admin: 06/06/19 06:23 Dose: 10 mg Pregabalin (Lyrica) 50 mg PO ONETIME [facility] Stop: 06/06/19 13:00 Last Admin: 06/06/19 06:23 Dose: 50 mg Propofol (Diprivan 20 Ml) Confirm Administered Dose 200 mg .ROUTE .STK-MED ONE Stop: 06/06/19 07:05 Propofol (Diprivan 20 Ml) Confirm Administered Dose 200 mg .ROUTE .STK-MED ONE Stop: 06/06/19 08:14 Ropivacaine (Naropin 0.5%) Confirm Administered Dose 30 ml .ROUTE .STK-MED ONE Stop: 06/06/19 08:50 Sodium Chloride (Saline Flush) 10 ml FLUSH ASDIRECTED PRN PRN Reason: Keep Vein Open Stop: 06/06/19 18:00 Tranexamic Acid (Cyklokapron) Confirm Administered Dose 1,000 mg .ROUTE .STK- MED ONE Stop: 06/06/19 06:25 Last Admin: 06/06/19 08:40 Dose: 1,000 mg Triamcinolone Acetonide (Kenalog-40) Confirm Administered Dose 80 mg .ROUTE .STK -MED ONE Stop: 06/06/19 07:02 Last Admin: 06/06/19 09:00 Dose: 80 mg Vancomycin HCl (Vancomycin) Confirm Administered Dose 1 gm .ROUTE .STK-MED ONE Stop: 06/06/19 06:25 Last Admin: 06/06/19 08:35 Dose: 1 gm - Exam Wound/Incisions: Dressing Dry and Intact General: Alert, Cooperative, No Acute Distress Lungs: Normal Respiratory Effort Extremities: Other (NVS intact for BLE. Stew's negative. 90 degree flexion right knee.) - Problem List Review Problem List Initiated/Reviewed/Updated: Yes - My Orders Last 24 Hours: Active Orders 24 hr Category Date Time Status Communication Order [RC] ROUTINE Care 06/06/19 09:14 Active Cooling Warming Measures [RC] ASDIRECTED Care 06/06/19 09:14 Inactive Notify Provider [RC] ASDIRECTED Care 06/06/19 09:14 Active Oxygen Therapy [RC] ASDIRECTED Care 06/06/19 09:14 Inactive Pulse Oximetry [RC] ASDIRECTED Care 06/06/19 09:14 Active Ready for Discharge [RC] PER UNIT ROUTINE Care 06/07/19 08:20 Ordered Vital Signs [RC] Q15M Care 06/06/19 09:14 Inactive Regular Diet [DIET] Diet 06/06/19 Lunch Active Acetaminophen/oxyCODONE [Percocet 325-5 MG] Med 06/06/19 09:30 Active 1 - 2 tab PO Q4H PRN Albuterol [Proventil HFA] Med 06/06/19 15:54 Active 0 gm INH Q4H PRN Aspirin [Halfprin] Med 06/07/19 09:00 Active 81 mg PO DAILY Bisacodyl [Dulcolax] Med 06/06/19 09:30 Active 5 mg PO DAILY PRN Cholecalciferol (Vitamin D3) [Vitamin D3] Med 06/06/19 21:00 Active 25 mcg PO TID Cyclobenzaprine [Flexeril] Med 06/06/19 09:30 Active 5 mg PO BID PRN Docusate Sodium [Colace] Med 06/06/19 21:00 Active 100 mg PO BID Famotidine [Pepcid] Med 06/06/19 21:00 Active 20 mg PO Q12H Ketorolac [Toradol] Med 06/06/19 09:30 Active 15 mg IVPUSH Q6H PRN Magnesium Hydroxide [Milk of Magnesia] Med 06/06/19 09:30 Active 30 ml PO BID PRN Montelukast [Singulair] Med 06/07/19 09:00 Active 10 mg PO DAILY Morphine Med 06/06/19 10:16 Active 2 mg IVPUSH Q2H PRN Multivitamins,Therapeutic [Thera] Med 06/07/19 09:00 Active 1 each PO DAILY Rivaroxaban [Xarelto] Med 06/07/19 09:00 Active 10 mg PO DAILY Sennosides [Senna] Med 06/06/19 09:30 Active 8.6 mg PO BID PRN Simvastatin [Zocor] Med 06/07/19 09:00 Active 10 mg PO DAILY Medication Orders Albuterol (Proventil Hfa) 0 gm INH Q4H PRN PRN Reason: Shortness of Breath Aspirin (Halfprin) 81 mg PO DAILY [facility] Bisacodyl (Dulcolax) 5 mg PO DAILY PRN PRN Reason: Constipation Cholecalciferol (Vitamin D3) 25 mcg PO TID [facility] Last Admin: 06/06/19 20:37 Dose: 25 mcg Cyclobenzaprine HCl (Flexeril) 5 mg PO BID PRN PRN Reason: Spasms Last Admin: 06/06/19 18:39 Dose: 5 mg Docusate Sodium (Colace) 100 mg PO BID [facility] Last Admin: 06/06/19 20:37 Dose: 100 mg Famotidine (Pepcid) 20 mg PO Q12H [facility] Last Admin: 06/06/19 20:37 Dose: 20 mg Ketorolac Tromethamine (Toradol) 15 mg IVPUSH Q6H PRN PRN Reason: Pain Last Admin: 06/06/19 23:18 Dose: 15 mg Magnesium Hydroxide (Milk Of Magnesia) 30 ml PO BID PRN PRN Reason: Constipation Montelukast Sodium (Singulair) 10 mg PO DAILY [facility] Morphine Sulfate (Morphine) 2 mg IVPUSH Q2H PRN PRN Reason: Breakthrough Pain Multivitamins (Thera) 1 each PO DAILY [facility] Naloxone HCl (Narcan) 0.1 mg IVPUSH Q5M PRN PRN Reason: Oversedation Ondansetron HCl (Zofran) 4 mg IVPUSH Q6H PRN PRN Reason: Nausea/Vomiting Oxycodone/Acetaminophen (Percocet 325-5 Mg) 1 - 2 tab PO Q4H PRN PRN Reason: Pain Last Admin: 06/06/19 20:36 Dose: 1 tab Admin: 06/06/19 12:43 Dose: 2 tab Rivaroxaban (Xarelto) 10 mg PO DAILY [facility] Senna (Senna) 8.6 mg PO BID PRN PRN Reason: Constipation Simvastatin (Zocor) 10 mg PO DAILY [facility] - Assessment Assessment (Free Text/Narrative):: POD#1 - s/p right TKA with left knee cortisone injection - Plan Plan (Free Text/Narrative):: 1. Hgb 10.7. 2. Xarelto 10mg PO daily. 3. Outpatient therapy. 4. Discharge to home today. The pt's case was discussed with Dr. Alexander.
[2019-06-07] MEDS: Cholecalciferol (Vitamin D3) 25 MCG Tab PO SCH (08:30)
[2019-06-07] MEDS: Acetaminophen/oxyCODONE 325-5 MG Tab PO PRN ×2 (08:30→13:35)
[2019-06-07] MEDS: Famotidine 20 MG Tab PO SCH (08:31)
[2019-06-07] MEDS: Docusate Sodium 100 MG Cap PO SCH (08:31)
[2019-06-07] MEDS ORDERED: Aspirin 81 MG Tab.EC PO SCH (09:00)
[2019-06-07] MEDS ORDERED: Simvastatin 10 MG Tab PO SCH (09:00)
[2019-06-07] MEDS ORDERED: Multivitamins,Therapeutic Tab PO SCH (09:00)
[2019-06-07] MEDS ORDERED: Montelukast 10 MG Tab PO SCH (09:00)
[2019-06-07] MEDS ORDERED: Rivaroxaban 10 MG Tab PO SCH (09:00)
[2019-06-07 15:19] VITALS: BP 136/75; PULSE 54
--- NOTE | 2019-06-08 08:01 | PCM.DCSUM1 ---
Discharge Summary - Hospital Course Brief History: Dang is a 64 yo female who underwent right TKA with left knee cortisone injection with Dr. Alexander on 06-06-2019. The procedure was completed under spinal anesthesia with sedation. The pt tolerated the procedure well and was admitted to the Medical-Surgical Unit. Medical management was provided by the Hospitalist service. The pt's Hospital course was Xarelto 10mg PO daily was initiated for VTE prophylaxis. SCDs and TEDs were also ordered. A Mepilex dressing was placed at the incision site at the time of surgery and remained clean and dry. The pt participated in P.T. and O.T. and progressed well. On POD#1, the pt was deemed appropriate to discharge to home with her family. She will attend outpatient P.T. - Discharge Data Discharge Date: 06/07/19 Discharge Disposition: Home, Self-Care 01 Condition: Good - Referral to Home Health Primary Care Physician: Jorge Alberto Doshi Jr, MD - Patient Summary/Data Consults: Consultations 06/06/19 06:27 OT Evaluation and Treatment [CONS] Routine PT Evaluation and Treatment [CONS] Routine 06/06/19 06:28 Consult to Physician [CONS] Routine - Patient Instructions Diet: Usual Diet as Tolerated Activity: Apply Ice, As Tolerated, Elevate Extremity, Full Weight Bearing Driving: Do Not Drive Showering/Bathing: May Shower Wound/Incision Care: Keep Operative Site/Wound Site Clean and Dry, Do NOT Change Dressing Notify Provider of: Fever, Increased Pain, Swelling and Redness, Drainage, Nausea and/or Vomiting Other/Special Instructions: Please get up and moving around EVERY HOUR while awake. This helps to prevent blood clots. Please use your walker and have help with mobility as needed. Take a short walk in your home every hour while awake. Please take the Xarelto blood thinner medication daily as directed. At home, please complete the exercises that you learned during the Hospital stay. Schedule for physical therapy. Use the pain medication as needed. The medication may cause drowsiness and constipation. Contact your primary care provider for instructions if you are constipated. You may use a stool softener like docusate sodium or Colace 100mg twice daily and/or a laxative like Miralax daily for constipation. Increase your water and fiber intake while you are using the pain medication. Discontinue use of the pain medication as soon as able. Please do not use other medications that may cause drowsiness (other pain medications, anxiety pills, cold medications, sleeping pills, etc) while using the prescription pain medication. Do not use alcohol while using the pain medication. You may use acetaminophen or Tylenol for pain management, however, please ensure you are not using over 4000 mg or 4 grams of acetaminophen per day from all sources. Your pain medication has 325mg of acetaminophen per tablet. Wear the YVES hose during the day and you may remove these at night. Elevate the limb to decrease swelling. Place ice to the area often. Place a towel between your skin and the blue pad. Use the incentive spirometer often. Take deep breaths throughout the day. Please keep the dressing in place until follow-up. Notify the Clinic if the dressing becomes saturated. Increase your protein intake while you are healing. Call the Clinic with questions or concerns - [phone]. - Discharge Plan *PRESCRIPTION DRUG MONITORING PROGRAM REVIEWED*: No *COPY OF PRESCRIPTION DRUG MONITORING REPORT IN PATIENT ANGELINA: No Prescriptions/Med Rec: Acetaminophen/oxyCODONE [Percocet 325-5 MG] 1 - 2 tab PO Q4H PRN #60 tablet PRN Reason: Pain Cyclobenzaprine [Flexeril] 5 mg PO BID PRN #20 tablet PRN Reason: Spasms Rivaroxaban [Xarelto] 10 mg PO DAILY #30 tablet Home Medications: Home Meds Albuterol Sulfate [Proair Hfa] 2 puff INH Q4H PRN 12/15/16 [History] Montelukast [Singulair] 10 mg PO DAILY 11/13/17 [History] Acetaminophen 650 mg PO Q6H PRN 06/03/19 [History] Aspirin [Halfprin] 81 mg PO DAILY 06/03/19 [History] Cholecalciferol (Vitamin D3) [Vitamin D3] 1,000 unit PO TID 06/03/19 [History] Multivitamin [Daily Multiple Vitamin] 1 tab PO DAILY 06/03/19 [History] Advair. 2 puff IH BID 06/06/19 [History] atorvaSTATin [Lipitor] 10 mg PO DAILY 06/06/19 [History] Acetaminophen/oxyCODONE [Percocet 325-5 MG] 1 - 2 tab PO Q4H PRN #60 tablet [Rx] Bisacodyl [Dulcolax] 5 mg PO DAILY PRN tablet 06/07/19 [Rx] Cyclobenzaprine [Flexeril] 5 mg PO BID PRN #20 tablet 06/07/19 [Rx] Docusate Sodium [Colace] 100 mg PO BID cap 06/07/19 [Rx] Famotidine [Pepcid] 20 mg PO Q12H tablet 06/07/19 [Rx] Magnesium Hydroxide [Milk of Magnesia] 30 ml PO BID PRN cup 06/07/19 [Rx] Rivaroxaban [Xarelto] 10 mg PO DAILY #30 tablet 06/07/19 [Rx] Sennosides [Senna] 8.6 mg PO BID PRN tablet 06/07/19 [Rx] Patient Handouts: Rivaroxaban oral tablets Referrals: Shahla Sampson PA-C [[facility]] - (You have 4 follow ups with Shahla Sampson as follows: 1) 06/15/19 at 100pm 2) 06/15/19 at 215pm 3) 06/21/19 at 215pm 4) 07/19/19 at 215pm) - Discharge Summary/Plan Comment DC Time >30 min.: No - Patient Data Vitals - Most Recent: Last Vital Signs Temp 98.1 F 06/07/19 11:06 Pulse 54 L 06/07/19 11:06 Resp 15 06/07/19 11:06 BP 136/75 06/07/19 11:06 Pulse Ox 94 L 06/07/19 11:06 Weight - Most Recent: 184 lb 14.4 oz Med Orders - Current: Current Medications Discontinued Medications Acetaminophen (Tylenol) 650 mg PO ONETIME [facility] Stop: 06/06/19 13:00 Acetaminophen (Tylenol) 975 mg PO ONETIME [facility] Stop: 06/06/19 13:00 Last Admin: 06/06/19 06:23 Dose: 975 mg Albuterol (Proventil Neb Soln) 2.5 mg NEB ONETIME [facility] Stop: 06/06/19 18:00 Last Admin: 06/06/19 06:55 Dose: 2.5 mg Albuterol (Proventil Hfa) 0 gm INH Q4H PRN PRN Reason: Shortness of Breath Aspirin (Halfprin) 81 mg PO DAILY [facility] Last Admin: 06/07/19 08:30 Dose: 81 mg Bisacodyl (Dulcolax) 5 mg PO DAILY PRN PRN Reason: Constipation Bupivacaine HCl (Sensorcaine-Mpf 0.25%) Confirm Administered Dose 30 ml .ROUTE .STK-MED ONE Stop: 06/06/19 06:26 Last Admin: 06/06/19 08:32 Dose: 30 ml Bupivacaine HCl (Sensorcaine-Mpf 0.25%) Confirm Administered Dose 10 ml .ROUTE .STK-MED ONE Stop: 06/06/19 07:02 Last Admin: 06/06/19 09:00 Dose: 4 ml Cefazolin Sodium (Ancef) Confirm Administered Dose 2 gm .ROUTE .STK-MED ONE Stop: 06/06/19 06:25 Last Admin: 06/06/19 08:29 Dose: 2 gm Cefazolin Sodium (Ancef) Confirm Administered Dose 2 gm .ROUTE .STK-MED ONE Stop: 06/06/19 07:06 Cholecalciferol (Vitamin D3) 25 mcg PO TID [facility] Last Admin: 06/07/19 08:30 Dose: 25 mcg Morphine Sulfate 8 mg/Epinephrine HCl 0.3 mg/Cefuroxime Sodium 750 mg/Ketorolac Tromethamine 30 mg/Sodium Chloride 27.9 ml 0 mg .XX ONETIME ONE Stop: 06/06/19 07:46 Last Admin: 06/06/19 10:57 Dose: Not Given Cyclobenzaprine HCl (Flexeril) 5 mg PO BID PRN PRN Reason: Spasms Last Admin: 06/06/19 18:39 Dose: 5 mg Docusate Sodium (Colace) 100 mg PO BID [facility] Last Admin: 06/07/19 08:31 Dose: 100 mg Ephedrine Sulfate (Ephedrine In Ns) Confirm Administered Dose 25 mg .ROUTE .STK- MED ONE Stop: 06/06/19 07:24 Ephedrine Sulfate (Ephedrine In Ns) Confirm Administered Dose 25 mg .ROUTE .STK- MED ONE Stop: 06/06/19 07:25 Epinephrine HCl (Adrenalin) Confirm Administered Dose 1 mg .ROUTE .STK-MED ONE Stop: 06/06/19 08:49 Famotidine (Pepcid) 20 mg PO Q12H [facility] Last Admin: 06/07/19 08:31 Dose: 20 mg Fentanyl (Sublimaze) Confirm Administered Dose 100 mcg .ROUTE .STK-MED ONE Stop: 06/06/19 07:05 Lactated Ringer's (Ringers, Lactated) 1,000 mls @ 125 mls/hr IV ASDIRECTED [facility] Stop: 06/06/19 23:00 Last Admin: 06/06/19 06:30 Dose: 125 mls/hr Cefazolin Sodium/Dextrose 2 gm (/ Premix) 50 mls @ 100 mls/hr IV Q8H [facility] Stop: 06/07/19 07:29 Last Admin: 06/07/19 06:50 Dose: 100 mls/hr Lidocaine HCl (Xylocaine-Mpf 1%) Confirm Administered Dose 4 mls @ as directed .ROUTE .STK-MED ONE Stop: 06/06/19 07:05 Lactated Ringer's (Ringers, Lactated) Confirm Administered Dose 1,000 mls @ as directed .ROUTE .STK-MED ONE Stop: 06/06/19 07:44 Iodine (Iodine 2% Mild Tincture) Confirm Administered Dose 30 ml .ROUTE .STK- MED ONE Stop: 06/06/19 06:26 Iodine (Iodine 2% Mild Tincture) Confirm Administered Dose 30 ml .ROUTE .STK- MED ONE Stop: 06/06/19 06:47 Last Admin: 06/06/19 08:25 Dose: 30 ml Ketorolac Tromethamine (Toradol) 15 mg IVPUSH Q6H PRN PRN Reason: Pain Last Admin: 06/06/19 23:18 Dose: 15 mg Lidocaine/Sodium Bicarbonate (Buffered Lidocaine 1% In Ns 8.4%) 0.25 ml IDERM ONETIME PRN PRN Reason: Prior to IV Start Stop: 06/06/19 18:00 Last Admin: 06/06/19 06:29 Dose: 0.25 ml Magnesium Hydroxide (Milk Of Magnesia) 30 ml PO BID PRN PRN Reason: Constipation Midazolam HCl (Versed 1 Mg/Ml) Confirm Administered Dose 2 mg .ROUTE .STK-MED ONE Stop: 06/06/19 07:05 Montelukast Sodium (Singulair) 10 mg PO DAILY [facility] Last Admin: 06/07/19 08:31 Dose: 10 mg Morphine Sulfate (Morphine) 2 mg IVPUSH Q2H PRN PRN Reason: Breakthrough Pain Morphine Sulfate (Morphine) 2 mg IVPUSH Q2H PRN PRN Reason: Breakthrough Pain Multivitamins (Thera) 1 each PO DAILY [facility] Last Admin: 06/07/19 08:30 Dose: 1 each Naloxone HCl (Narcan) 0.1 mg IVPUSH Q5M PRN PRN Reason: Oversedation Ondansetron HCl (Zofran) 4 mg IVPUSH Q6H PRN PRN Reason: Nausea/Vomiting Ondansetron HCl (Zofran) Confirm Administered Dose 4 mg .ROUTE .STK-MED ONE Stop: 06/06/19 07:04 Oxycodone HCl (Oxycontin) 10 mg PO ONETIME [facility] Stop: 06/06/19 13:00 Last Admin: 06/06/19 06:23 Dose: 10 mg Oxycodone/Acetaminophen (Percocet 325-5 Mg) 1 - 2 tab PO Q4H PRN PRN Reason: Pain Last Admin: 06/07/19 13:35 Dose: 2 tab Pregabalin (Lyrica) 50 mg PO ONETIME [facility] Stop: 06/06/19 13:00 Last Admin: 06/06/19 06:23 Dose: 50 mg Propofol (Diprivan 20 Ml) Confirm Administered Dose 200 mg .ROUTE .STK-MED ONE Stop: 06/06/19 07:05 Propofol (Diprivan 20 Ml) Confirm Administered Dose 200 mg .ROUTE .STK-MED ONE Stop: 06/06/19 08:14 Rivaroxaban (Xarelto) 10 mg PO DAILY [facility] Last Admin: 06/07/19 08:31 Dose: 10 mg Ropivacaine (Naropin 0.5%) Confirm Administered Dose 30 ml .ROUTE .STK-MED ONE Stop: 06/06/19 08:50 Senna (Senna) 8.6 mg PO BID PRN PRN Reason: Constipation Simvastatin (Zocor) 10 mg PO DAILY [facility] Last Admin: 06/07/19 08:31 Dose: 10 mg Sodium Chloride (Saline Flush) 10 ml FLUSH ASDIRECTED PRN PRN Reason: Keep Vein Open Stop: 06/06/19 18:00 Tranexamic Acid (Cyklokapron) Confirm Administered Dose 1,000 mg .ROUTE .STK- MED ONE Stop: 06/06/19 06:25 Last Admin: 06/06/19 08:40 Dose: 1,000 mg Triamcinolone Acetonide (Kenalog-40) Confirm Administered Dose 80 mg .ROUTE .STK -MED ONE Stop: 06/06/19 07:02 Last Admin: 06/06/19 09:00 Dose: 80 mg Vancomycin HCl (Vancomycin) Confirm Administered Dose 1 gm .ROUTE .STK-MED ONE Stop: 06/06/19 06:25 Last Admin: 06/06/19 08:35 Dose: 1 gm
--- NOTE | 2019-06-09 12:09 | PCM.OPNOTE ---
- General Post-Op/Procedure Note Date of Surgery/Procedure: 06/06/19 Operative Procedure(s): right total knee arthroplasty with left knee corticosteroid injection Pre Op Diagnosis: bilateral knee osteoarthrosis Post-Op Diagnosis: Same Anesthesia Technique: Local, MAC, Spinal Primary Surgeon: Everett Alexander Anesthesia Provider: Kehinde Dobbins Molder Machine Tender: Shahla Sampson Molder Machine Tender: Yanira Amezcua EBSisi in mLs: 5 Complications: None Condition: Good Free Text/Narrative:: size 4/4 9mm 29x9
--- NOTE | 2019-06-09 12:40 | OR ---
DATE OF OPERATION: 06/06/2019 SURGEON: Everett Alexander MD OPERATION PERFORMED: Right total knee arthroplasty with left knee cortical steroid injection. PREOPERATIVE DIAGNOSIS: Bilateral knee osteoarthrosis. POSTOPERATIVE DIAGNOSIS: Bilateral knee osteoarthrosis. ANESTHESIA: Local MAC with spinal. ANESTHETIC PROVIDER: Juancho Mora. ASSISTANTS: Shahla Sampson PA-C and Yanira Amezcua LPN. ESTIMATED BLOOD LOSS: 5 mL. COMPLICATIONS: None. CONDITION: Stable. IMPLANTS: 1. Codey size 4 cemented PS femur. 2. Codey size 4 cemented universal tibial baseplate. 3. [place] size 4 9 mm PS X3 polyethylene. 4. Codey size 29 x 9 mm cemented asymmetric patella. DESCRIPTION OF PROCEDURE: The patient was identified in the preop holding area. Proper site was marked and identified by the surgeon. The patient was taken back to the operating theater. After adequate anesthesia, the patient's right lower extremity had a nonsterile tourniquet applied and it was sterilely prepped and draped in the usual sterile fashion. OR time-out was performed. The patient received 2 g IV Ancef. At this time, the right lower extremity was exsanguinated. Tourniquet was insufflated to 300 mmHg. Standard medial parapatellar incision was made. Medial parapatellar arthrotomy was created. Deep fibers of the MCL were raised and anterior fat pad was resected. At this time, attention was turned to the patella. Patella measured 21, it was resected to a 13 for 29 x 9 mm patella. Drill holes were then drilled and found to be in adequate position. The drill was then drilled in the distal femur and the intramedullary distal femoral cutting guide was then placed. 8 mm was resected off the distal femur and was found to be an adequate resection. Sizing guide was placed. It was found to be a size 4 cemented PS femur that was shown on the implant record at the beginning of this dictation. The drill holes were drilled for the epicondylar axis using [place] line and epicondyles as reference. At this time, the 4-in-1 cutting block was placed. An anterior posterior and anterior and posterior chamfer cuts were then completed. Box cut was completed at this time. Attention was turned to the tibia. The posterior medial lateral retractors were placed. The extramedullary tibial guide was placed. It was placed in the old footprint of the ACL. It was aligned with the center of the ankle and 0 degrees of slope, 9 mm was then resected off the unaffected side. There was found to be an acceptable reduction. At this time, posterior osteophytes were removed along with medial and lateral meniscus. A trial implant was placed with a correct sized tibia that was mentioned at the beginning of the dictation. A Codey size 4 9 mm PS X3 polyethylene trial insert was then placed. The patient's knee was brought through range of motion. The patella was tracking centrally and was stable to varus and valgus stress. Alignment was found to be roughly at 0 degrees. The tibia was stamped and drilled in proper rotation. The universal tibial base plate was impacted in place. Next, the Codey size 4 cemented PS femur impacted into place and the Codey size 4 9 mm PS X3 polyethylene insert was placed. The patient's knee was brought into full extension. Excess cement was removed. The patella was then press-fit in place at this time. One liter dilute Betadine solution was irrigated through the knee along with 3 L of pulse lavage irrigation with Ancef. Periarticular injection was then completed. The patient's knee was brought through a range of motion. Once the cement had time to set up and it was found to be stable to varus valgus stress, the patella was tracking centrally with full range of motion. At this time, a #2 barbed suture was used for closure of the medial parapatellar arthrotomy. Topical tranexamic acid was placed. 2-0 Vicryl was used subcutaneously, Prineo was used for the skin. The patient tolerated the procedure well and was sent to the PACU in stable condition. After this procedure was completed, under sterile technique, 2 mL of 40 mg Kenalog and 4 mL of 0.25% Marcaine were injected to the left knee. Patient tolerated it well and was sent to PACU in stable condition. PAULA /[id number] ZARA
== END 2019-06-07 14:10 | disposition home or self-care (01) | DRG 470 ==
LOC: JD.SDS 06:12 → JD.MS 09:46
PROVIDERS: ADMIT Orthopaedic Surgery; ATTEND Orthopaedic Surgery
PROC: 0SRC0J9 Replacement of Right Knee Joint with Synthetic Substitute, Cemented, Open Approach (ICD-10-PCS; principal; 2019-06-06)
PROC: 3E0U33Z Introduction of Anti-inflammatory into Joints, Percutaneous Approach (ICD-10-PCS; 2019-06-06)
DX: M17.0 Bilateral primary osteoarthritis of knee (principal); I27.20 Pulmonary hypertension, unspecified; Z96.652 Presence of left artificial knee joint; G47.33 Obstructive sleep apnea (adult) (pediatric); J45.909 Unspecified asthma, uncomplicated; E78.00 Pure hypercholesterolemia, unspecified; E78.5 Hyperlipidemia, unspecified; E66.01 Morbid (severe) obesity due to excess calories; Z98.84 Bariatric surgery status; Z68.35 Body mass index [BMI] 35.0-35.9, adult; Z79.899 Other long term (current) drug therapy; Z79.82 Long term (current) use of aspirin; Z91.048 Other nonmedicinal substance allergy status; Z68.34 Body mass index [BMI] 34.0-34.9, adult
CPT/HCPCS: 36415; 73560; 85610; 85730; 87641; 94640; A9270 ×4; J0171 ×2; J0690 ×2; J0697; J1885; J2001; J2250; J2270; J2405; J2704 ×2; J2795; J3010; J3301; J3370; J3490 ×2; J7050 ×2; J7120 ×2; 01402; 64450; 80053; 85027; 97110-GP; 97116-GP; 97161-GP; 97165-GO; 97530-GP; 97535-GO; C1713; C1776

== ENCOUNTER 2019-08-15 06:52 | Inpatient (IN) | payer MEDICARE, MEDICAID ==
[~2019-08-15 06:52] MED LIST changes: -Albuterol 0.083% 2.5 MG/3 ML Neb Soln NEB SCH; +Bisacodyl 5 MG Tab PO PRN; +Ketorolac 15 MG/ML SDV IVPUSH PRN; +Magnesium Hydroxide 400 MG/5 ML Susp 30 ML Cup PO PRN; +Morphine 2 MG/ML Syringe IVPUSH PRN; +Naloxone 0.4 MG/ML SDV IVPUSH PRN; +Ondansetron 4 MG/2 ML SDV IVPUSH PRN; +Sennosides 8.6 MG Tab PO PRN
[2019-08-15] MEDS ORDERED: EPINEPHrine 1 MG/ML SDV ONE (07:43)
[2019-08-15] MEDS ORDERED: Ropivacaine 0.5% 5 MG/ML 30 ML SDV ONE (07:43)
--- NOTE | 2019-08-15 08:02 | PCM.CONS ---
H&P History of Present Illness - General Date of Service: 08/15/19 Admit Problem/Dx: Admission Diagnosis/Problem Admission Diagnosis/Problem Osteoarthritis of knee Source of Information: Patient, Old Records, Provider, RN, RN Notes Reviewed History Limitations: Reports: No Limitations - History of Present Illness Initial Comments - Free Text/Narative: Dang Puckett is a 64 yo female patient of Dr. Alexander who is post-operative day 0 of left TKA. Hospital medicine was consulted for post-operative medical care of the following listed medical conditions. At this time she is resting comfortably in bed. Pain is controlled. She denies any chest pain, shortness of breath, palpitations, nausea, or vomiting. She carries a history of: Asthma, Obesity, DEBBIE on CPAP, Hx/o adhesions, Hx/o gastric bypass, Pulmonary hypertension. She was never a smoker. She is a full code. Her primary care provider is Dr. Doshi. Left Knee Pain Score (Numeric/FACES): 2 - Related Data Allergies/Adverse Reactions: Allergies Allergy/AdvReac Type Severity Reaction Status Date / Time No Known Allergies Allergy Verified 08/10/19 11:41 Home Medications: Home Meds Montelukast [Singulair] 10 mg PO DAILY 11/13/17 [History] Acetaminophen 650 mg PO Q6H PRN 06/03/19 [History] Aspirin [Halfprin] 81 mg PO DAILY 06/03/19 [History] atorvaSTATin [Lipitor] 10 mg PO DAILY 06/06/19 [History] Cholecalciferol (Vitamin D3) [Vitamin D3] 5,000 unit PO DAILY 08/10/19 [History] Fluticasone/Salmeterol [Advair 250-50] 1 puff INH BID PRN 08/10/19 [History] Biotin 1,000 mcg PO DAILY 08/15/19 [History] Multivitamin [Multivitamins] 1 cap PO DAILY 08/15/19 [History] Past Medical History - Past Health History Medical/Surgical History: Denies Medical/Surgical History HEENT History: Reports: Allergic Rhinitis, Impaired Vision, Other (See Below) Other HEENT History: Seasonal allergies Cardiovascular History: Reports: High Cholesterol, Pulmonary Hypertension Respiratory History: Reports: Asthma, Sleep Apnea Other Respiratory History: Uses CPAP Gastrointestinal History: Reports: None Other Gastrointestinal History: gastric bypass Genitourinary History: Reports: 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: Musculoskeletal History: Reports: Osteoarthritis, Other (See Below) Other Musculoskeletal History: Degenerative joint disease Neurological History: Reports: None Psychiatric History: Reports: None Endocrine/Metabolic History: Reports: Obesity/BMI 30+ Hematologic History: Reports: None Immunologic History: Reports: None Oncologic (Cancer) History: Reports: None Dermatologic History: Reports: None - Infectious Disease History Infectious Disease History: Reports: None - Past Surgical History Head Surgeries/Procedures: Reports: None HEENT Surgical History: Reports: Tonsillectomy Cardiovascular Surgical History: Reports: None Respiratory Surgical History: Reports: None GI Surgical History: Reports: Bariatric Procedure, Cholecystectomy, Colonoscopy , Other (See Below) Other GI Surgeries/Procedures: Gastric Bypass, multiple hernia repairs Female Surgical History: Reports: None Endocrine Surgical History: Reports: None Neurological Surgical History: Reports: None Musculoskeletal Surgical History: Reports: None, Knee Replacement Other Musculoskeletal Surgeries/Procedures:: L knee and both wrists Oncologic Surgical History: Reports: None Dermatological Surgical History: Reports: None Social & Family History - Family History Family Medical History: Noncontributory Cardiac: Reports: PVD/COD, Other (See Below) Other Cardiac Family History: CVA - Tobacco Use Smoking Status *Q: Never Smoker - Caffeine Use Caffeine Use: Reports: Coffee - Recreational Drug Use Recreational Drug Use: No Drug Use in Last 12 Months: No - Living Situation & Occupation Living situation: Reports: , with Spouse H&P Review of Systems - Review of Systems: Review Of Systems: See Below General: Reports: No Symptoms. Denies: Fever, Chills HEENT: Reports: No Symptoms. Denies: Headaches, Sore Throat Pulmonary: Reports: No Symptoms. Denies: Shortness of Breath, Wheezing, Cough, Sputum Cardiovascular: Reports: No Symptoms. Denies: Chest Pain, Palpitations Gastrointestinal: Reports: No Symptoms. Denies: Abdominal Pain, Constipation, Diarrhea, Nausea, Vomiting Genitourinary: Reports: No Symptoms. Denies: Pain Musculoskeletal: Reports: Leg Pain (left knee ) Skin: Reports: No Symptoms. Denies: Cyanosis Psychiatric: Reports: No Symptoms. Denies: Confusion Neurological: Reports: No Symptoms Hematologic/Lymphatic: Reports: No Symptoms Immunologic: Reports: No Symptoms Exam - Exam Exam: See Below - Exam Quality Assessment: DVT Prophylaxis General: Alert, Oriented, Cooperative. No: Mild Distress HEENT: Conjunctiva Clear, EACs Clear, EOMI, Hearing Intact, Mucosa Moist & [place] , Nares Patent, Normal Nasal Septum, Posterior Pharynx Clear, PERRLA Neck: Supple, Trachea Midline Lungs: Clear to Auscultation, Normal Respiratory Effort Cardiovascular: Regular Rate, Regular Rhythm GI/Abdominal Exam: Normal Bowel Sounds, Soft, Non-Tender, No Distention, No Abnormal Bruit (Female) Exam: Deferred Rectal (Female) Exam: Deferred Back Exam: Normal Inspection, Full Range of Motion Extremities: Normal Inspection, No Pedal Edema, Normal Capillary Refill, Leg Pain, Limited Range of Motion, Other (Bandage in place on left leg. Bandage is dry and intact. Cooling pack in place. ) Peripheral Pulses: 2+: Radial (L), Radial (R), Dorsalis Pedis (L), Dorsalis Pedis (R) Skin: Warm, Dry, Intact Neurological: Cranial Nerves Intact (Grossly ) Neuro Extensive - Mental Status: Alert, Oriented x3, Normal Mood/Affect Consult PN Assessment/Plan POD#: 0 Procedures: Procedures AIRWAY INHALATION TREATMENT (06/06/19) ASSAY OF BLOOD/URIC ACID (01/12/14) ASSAY OF GGT (09/23/17) ASSAY OF LACTIC ACID (06/10/16) ASSAY OF LIPASE (10/13/17) ASSAY OF NATRIURETIC PEPTIDE (04/29/16) ASSAY OF TROPONIN QUANT (10/22/18) BL SMEAR W/DIFF WBC COUNT (10/22/18) BLOOD CULTURE FOR BACTERIA (10/13/17) BLOOD GASES ANY COMBINATION (01/26/16) C-REACTIVE PROTEIN (09/23/17) CARDIOVASCULAR STRESS TEST (03/04/16) CHEST X-RAY 1 VIEW FRONTAL (06/10/16) CO/MEMBANE DIFFUSE CAPACITY (04/03/16) COMPLETE CBC AUTOMATED (06/06/19) COMPLETE CBC W/AUTO DIFF WBC (10/13/17) COMPREHEN METABOLIC PANEL (06/06/19) CRITICAL CARE ADDL 30 MIN (01/26/16) CRITICAL CARE FIRST HOUR (01/26/16) CT ABD & PELV W/CONTRAST (10/13/17) CT ANGIOGRAPHY CHEST (06/10/16) CT HEAD/BRAIN W/O DYE (01/26/16) CT MAXILLOFACIAL W/O DYE (01/25/16) CULTURE SCREEN ONLY (06/10/16) ECHO EXAM OF ABDOMEN (09/23/17) ELECTROCARDIOGRAM TRACING (10/22/18) EMERGENCY DEPT VISIT (10/22/18) EMERGENCY DEPT VISIT (10/13/17) EMERGENCY DEPT VISIT (06/10/16) EMERGENCY DEPT VISIT (04/29/16) EMERGENCY DEPT VISIT (01/25/16) EMERGENCY DEPT VISIT (01/12/14) EVALUATION OF WHEEZING (04/03/16) FIBRIN DEGRADATION QUANT (09/23/17) GAIT TRAINING THERAPY (06/06/19) HT MUSCLE IMAGE SPECT MULT (03/04/16) HYDRATE IV INFUSION ADD-ON (10/13/17) INFLUENZA ASSAY W/OPTIC (10/22/18) INSERT EMERGENCY AIRWAY (01/26/16) INSERT TEMP BLADDER CATH (01/26/16) MR-STAPH DNA AMP PROBE (06/06/19) OT EVAL LOW COMPLEX 30 MIN (06/06/19) POLYSOM 6/>YRS CPAP 4/> PARM (04/06/16) PROTHROMBIN TIME (06/06/19) PT EVAL LOW COMPLEX 20 MIN (06/06/19) ROUTINE VENIPUNCTURE (06/06/19) SELF CARE MNGMENT TRAINING (06/06/19) STREP A AG IA (10/22/18) THER/DIAG CONCURRENT INF (10/13/17) THER/PROPH/DIAG INJ IV PUSH (09/23/17) THER/PROPH/DIAG IV INF ADDON (01/26/16) THER/PROPH/DIAG IV INF INIT (10/13/17) THERAPEUTIC ACTIVITIES (06/06/19) THERAPEUTIC EXERCISES (06/06/19) THROMBOPLASTIN TIME PARTIAL (06/06/19) TX/PRO/DX INJ NEW DRUG ADDON (10/13/17) TX/PRO/DX INJ SAME DRUG MOLDING TECHNICIAN (10/13/17) URINALYSIS AUTO W/SCOPE (10/13/17) VENT MGMT INPAT INIT DAY (01/26/16) WITHDRAWAL OF ARTERIAL BLOOD (01/26/16) X-RAY EXAM CHEST 2 VIEWS (09/23/17) X-RAY EXAM KNEE 4 OR MORE (01/12/14) X-RAY EXAM OF ABDOMEN (12/15/16) X-RAY EXAM OF KNEE 1 OR 2 (06/06/19) (1) S/P total knee arthroplasty SNOMED Code(s): 9610039306384, 179843472, 7803352327007 Code(s): Z96.659 - PRESENCE OF UNSPECIFIED ARTIFICIAL KNEE JOINT Priority: High Current Visit: Yes Qualifiers: Laterality: left Qualified Code(s): Z96.652 - Presence of left artificial knee joint (2) Osteoarthritis SNOMED Code(s): 513749040 Code(s): M19.90 - UNSPECIFIED OSTEOARTHRITIS, UNSPECIFIED SITE Priority: High Current Visit: Yes Qualifiers: Osteoarthritis location: knee Osteoarthritis type: primary Laterality: left Qualified Code(s): M17.12 - Unilateral primary osteoarthritis, left knee (3) Asthma SNOMED Code(s): 084156194 Code(s): J45.909 - UNSPECIFIED ASTHMA, UNCOMPLICATED Priority: Medium Current Visit: No Qualifiers: Asthma severity: unspecified severity Asthma persistence: unspecified Asthma complication type: unspecified Qualified Code(s): J45.909 - Unspecified asthma, uncomplicated (4) Obesity (BMI 30.0-34.9) SNOMED Code(s): 869109904711418 Code(s): E66.9 - OBESITY, UNSPECIFIED Priority: Low Current Visit: No (5) DEBBIE on CPAP SNOMED Code(s): 70322401 Code(s): G47.33 - OBSTRUCTIVE SLEEP APNEA (ADULT) (PEDIATRIC); Z99.89 - DEPENDENCE ON OTHER ENABLING MACHINES AND DEVICES Priority: Medium Current Visit: No (6) History of gastric bypass SNOMED Code(s): 573432487 Code(s): Z98.84 - BARIATRIC SURGERY STATUS Priority: Low Current Visit: No (7) Pulmonary hypertension SNOMED Code(s): 16545381 Code(s): I27.20 - PULMONARY HYPERTENSION, UNSPECIFIED Priority: High Current Visit: Yes Problem List Initiated/Reviewed/Updated: Yes Plan: I/P: Acute: S/P right total knee arthroplasty - post-operative day 0 -DVT prophylaxis and pain management per primary care team -PT/OT -IS/RT -Monitor oxygen saturation -Titrate oxygen as needed -Home medications reviewed -Vital signs stable -Monitor labs -Pre-operative Hgb was 12.4 -Pre-operative GFR was 83 Osteoarthritis of left knee -Pain management per primary care team Chronic: Asthma Obesity DEBBIE on CPAP Hx/o abdominal adhesions Hx/o Gastric bypass Pulmonary hypertension Plan: CM for discharge planning GI prophylaxis Home medications as indicated Other orders as listed above Routine AM labs She is a full code. Her PCP is Dr. Doshi. Thank you for allowing us to participate in the care of this patient!! Requesting Provider: Dr. Alexander Date Consult Requested: 08/15/19 Patient History Reviewed: Yes Admission H&P Reviewed: Yes
[2019-08-15] MEDS ORDERED: Propofol 200 MG/20 ML SDV ONE (08:14)
[2019-08-15] MEDS ORDERED: fentaNYL 100 MCG/2 ML SDV ONE (08:14)
[2019-08-15] MEDS ORDERED: Lidocaine 1% 4 ML ONE (08:14)
[2019-08-15] MEDS ORDERED: Midazolam 1 MG/ML 2 ML SDV ONE (08:14)
[2019-08-15] MEDS ORDERED: ceFAZolin 1 GM Vial ONE (08:29)
--- NOTE | 2019-08-15 08:55 | PCM.PREANE ---
Preanesthetic Assessment - Procedure Proposed Procedure: Left total knee arthroplasty - Anesthesia/Transfusion/Family Hx Anesthesia History: Prior Anesthesia Without Reaction Family History of Anesthesia Reaction: No Transfusion History: No Prior Transfusion(s) - Review of Systems General: No Symptoms Pulmonary: No Symptoms Cardiovascular: No Symptoms Gastrointestinal: No Symptoms Neurological: No Symptoms Other: Reports: None - Physical Assessment NPO Status Date: 08/14/19 NPO Status Time: 23:00 Vital Signs: Last Vital Signs Temp 36.9 C 08/15/19 07:45 Pulse 68 08/15/19 07:45 Resp 16 08/15/19 07:45 BP 124/65 08/15/19 07:45 Pulse Ox 100 08/15/19 07:45 Height: 1.55 m Weight: 81.647 kg ASA Class: 2 Mental Status: Alert & Oriented x3 Airway Class: Mallampati = 2 Dentition: Reports: Normal Dentition Thyro-Mental Finger Breadths: 3 Mouth Opening Finger Breadths: 3 ROM/Head Extension: Full Lungs: Clear to Auscultation, Normal Respiratory Effort Cardiovascular: Regular Rate, Regular Rhythm - Lab Values: Laboratory Last Values MRSA (PCR) Negative 08/03/19 13:23 - Imaging/EKG Impressions: EKG SR rate56 - Allergies Allergies/Adverse Reactions: Allergies Allergy/AdvReac Type Severity Reaction Status Date / Time No Known Allergies Allergy Verified 08/10/19 11:41 - Blood Blood Available: No Product(s) Available: None - Anesthesia Plan Pre-Op Medication Ordered: None - Acknowledgements Anesthesia Type Planned: Spinal, Regional Block (left adductor canal block post- op for pain control) Pt an Appropriate Candidate for the Planned Anesthesia: Yes Alternatives and Risks of Anesthesia Discussed w Pt/Guardian: Yes Pt/Guardian Understands and Agrees with Anesthesia Plan: Yes PreAnesthesia Questionnaire - Past Health History Medical/Surgical History: Denies Medical/Surgical History HEENT History: Reports: Allergic Rhinitis, Impaired Vision, Other (See Below) Other HEENT History: Seasonal allergies Cardiovascular History: Reports: High Cholesterol, Pulmonary Hypertension Respiratory History: Reports: Asthma, Sleep Apnea Other Respiratory History: Uses CPAP Gastrointestinal History: Reports: None Other Gastrointestinal History: gastric bypass Genitourinary History: Reports: None [employer]PER[employer]OR [employer] History: Reports: Musculoskeletal History: Reports: Osteoarthritis, Other (See Below) Other Musculoskeletal History: Degenerative joint disease Neurological History: Reports: None Psychiatric History: Reports: None Endocrine/Metabolic History: Reports: Obesity/BMI 30+ Hematologic History: Reports: None Immunologic History: Reports: None Oncologic (Cancer) History: Reports: None Dermatologic History: Reports: None - Infectious Disease History Infectious Disease History: Reports: None - Past Surgical History Head Surgeries/Procedures: Reports: None HEENT Surgical History: Reports: Tonsillectomy Cardiovascular Surgical History: Reports: None Respiratory Surgical History: Reports: None GI Surgical History: Reports: Bariatric Procedure, Cholecystectomy, Colonoscopy , Other (See Below) Other GI Surgeries/Procedures: Gastric Bypass, multiple hernia repairs Female Surgical History: Reports: None Endocrine Surgical History: Reports: None Neurological Surgical History: Reports: None Musculoskeletal Surgical History: Reports: None, Knee Replacement Other Musculoskeletal Surgeries/Procedures:: L knee and both wrists Oncologic Surgical History: Reports: None Dermatological Surgical History: Reports: None - SUBSTANCE USE Smoking Status *Q: Never Smoker Tobacco Use Within Last Twelve Months: No Second Hand Smoke Exposure: No Days Per Week of Alcohol Use: 0 Number of Drinks Per Day: 0 Total Drinks Per Week: 0 Recreational Drug Use History: No - HOME MEDS Home Medications: Home Meds Montelukast [Singulair] 10 mg PO DAILY 11/13/17 [History] Acetaminophen 650 mg PO Q6H PRN 06/03/19 [History] Aspirin [Halfprin] 81 mg PO DAILY 06/03/19 [History] atorvaSTATin [Lipitor] 10 mg PO DAILY 06/06/19 [History] Cholecalciferol (Vitamin D3) [Vitamin D3] 5,000 unit PO DAILY 08/10/19 [History] Fluticasone/Salmeterol [Advair 250-50] 1 puff INH BID PRN 08/10/19 [History] Multivitamin [Multivitamins] 1 cap PO DAILY 08/15/19 [History] - CURRENT (IN HOUSE) MEDS Current Meds: Current Medications Acetaminophen (Tylenol) 975 mg PO ONETIME HORTENCIA Stop: 08/15/19 23:00 Last Admin: 08/15/19 08:01 Dose: 975 mg Bisacodyl (Dulcolax) 5 mg PO DAILY PRN PRN Reason: Constipation Morphine Sulfate 8 mg/Epinephrine HCl 0.3 mg/Cefuroxime Sodium 750 mg/Ketorolac Tromethamine 30 mg/Sodium Chloride 27.9 ml 0 mg .XX ONETIME ONE Stop: 08/15/19 10:06 Cyclobenzaprine HCl (Flexeril) 10 mg PO BID PRN PRN Reason: Spasms Docusate Sodium (Colace) 100 mg PO BID HORTENCIA Famotidine (Pepcid) 20 mg PO Q12H [facility] Lactated Ringer's (Ringers, Lactated) 1,000 mls @ 125 mls/hr IV ASDIRECTED [facility] Stop: 08/15/19 23:00 Last Admin: 08/15/19 08:20 Dose: 125 mls/hr Cefazolin Sodium/Dextrose 2 gm (/ Premix) 50 mls @ 100 mls/hr IV Q8H [facility] Stop: 08/15/19 23:29 Ketorolac Tromethamine (Toradol) 15 mg IVPUSH Q6H PRN PRN Reason: Pain Lidocaine/Sodium Bicarbonate (Buffered Lidocaine 1% In Ns 8.4%) 0.25 ml IDERM ONETIME PRN PRN Reason: Prior to IV Start Stop: 08/15/19 18:00 Last Admin: 08/15/19 08:20 Dose: 0.25 ml Magnesium Hydroxide (Milk Of Magnesia) 30 ml PO BID PRN PRN Reason: Constipation Morphine Sulfate (Morphine) 2 mg IVPUSH Q2H PRN PRN Reason: Breakthrough Pain Naloxone HCl (Narcan) 0.1 mg IVPUSH Q5M PRN PRN Reason: Oversedation Ondansetron HCl (Zofran) 4 mg IVPUSH Q6H PRN PRN Reason: Nausea/Vomiting Oxycodone HCl (Oxycontin) 10 mg PO ONETIME [facility] Stop: 08/15/19 23:00 Last Admin: 08/15/19 08:02 Dose: 10 mg Oxycodone/Acetaminophen (Percocet 325-5 Mg) 1 - 2 tab PO Q4H PRN PRN Reason: Pain Pregabalin (Lyrica) 50 mg PO ONETIME [facility] Stop: 08/15/19 23:00 Last Admin: 08/15/19 08:01 Dose: 50 mg Rivaroxaban (Xarelto) 10 mg PO DAILY [facility] Senna (Senna) 8.6 mg PO BID PRN PRN Reason: Constipation Sodium Chloride (Saline Flush) 10 ml FLUSH ASDIRECTED PRN PRN Reason: Keep Vein Open Stop: 08/15/19 18:00 Discontinued Medications Bupivacaine HCl (Sensorcaine-Mpf 0.25%) Confirm Administered Dose 30 ml .ROUTE .STK-MED ONE Stop: 08/15/19 08:30 Cefazolin Sodium (Ancef) Confirm Administered Dose 2 gm .ROUTE .STK-MED ONE Stop: 08/15/19 08:15 Cefazolin Sodium (Ancef) Confirm Administered Dose 2 gm .ROUTE .STK-MED ONE Stop: 08/15/19 08:30 Epinephrine HCl (Adrenalin) Confirm Administered Dose 1 mg .ROUTE .STK-MED ONE Stop: 08/15/19 07:44 Fentanyl (Sublimaze) Confirm Administered Dose 100 mcg .ROUTE .STK-MED ONE Stop: 08/15/19 08:15 Lidocaine HCl (Xylocaine-Mpf 1%) Confirm Administered Dose 4 mls @ as directed .ROUTE .STK-MED ONE Stop: 08/15/19 08:15 Iodine (Iodine 2% Mild Tincture) Confirm Administered Dose 30 ml .ROUTE .STK- MED ONE Stop: 08/15/19 08:30 Midazolam HCl (Versed 1 Mg/Ml) Confirm Administered Dose 2 mg .ROUTE .STK-MED ONE Stop: 08/15/19 08:15 Propofol (Diprivan 20 Ml) Confirm Administered Dose 600 mg .ROUTE .STK-MED ONE Stop: 08/15/19 08:15 Ropivacaine (Naropin 0.5%) Confirm Administered Dose 30 ml .ROUTE .STK-MED ONE Stop: 08/15/19 07:44 Tranexamic Acid (Cyklokapron) Confirm Administered Dose 1,000 mg .ROUTE .STK- MED ONE Stop: 08/15/19 08:30 Vancomycin HCl (Vancomycin) Confirm Administered Dose 1 gm .ROUTE .STK-MED ONE Stop: 08/15/19 08:30
[2019-08-15] MEDS ORDERED: Phenylephrine/Normal Saline 100 MCG/ML 10 ML Syringe ONE (09:49)
[2019-08-15] MEDS ORDERED: Morphine 8 MG, EPINEPHrine 0.3 MG, Cefuroxime 750 MG, Ketorolac 30 MG, Sodium Chloride ... ONE ×5 (10:05)
[2019-08-15] MEDS ORDERED: Lactated Ringers 1,000 ML ONE ×2 (10:06→11:03)
[2019-08-15] MEDS: ceFAZolin 1 GM Vial ONE ×2 (10:17→10:43)
[2019-08-15] MEDS: Bupivacaine 0.25% 10 ML SDV ONE ×2 (10:17→10:46)
[2019-08-15] MEDS: Iodine/Sodium Iodide 2% Tincture 30 ML Bottle ONE ×2 (10:18→10:40)
[2019-08-15] MEDS: Vancomycin 1 GM SDV ONE ×2 (10:19→10:50)
[2019-08-15] MEDS ORDERED: ePHEDrine/Normal Saline 25 MG/5 ML Syringe ONE (10:23)
--- NOTE | 2019-08-15 11:27 | PCM.POSTAN ---
POST ANESTHESIA ASSESSMENT - MENTAL STATUS Mental Status: Alert, Oriented - VITAL SIGNS Vital Signs: Last Vital Signs Temp 36.9 C 08/15/19 07:45 Pulse 68 08/15/19 07:45 Resp 16 08/15/19 07:45 BP 124/65 08/15/19 07:45 Pulse Ox 100 08/15/19 07:45 - RESPIRATORY Respiratory Status: Respiratory Rate WNL, Airway Patent, O2 Saturation Stable - CARDIOVASCULAR CV Status: Pulse Rate WNL, Blood Pressure Stable - GASTROINTESTINAL GI Status: No Symptoms - PAIN Pain Score: 0 - POST OP HYDRATION Hydration Status: Adequate & Stable - OBSERVATIONS Free Text/Narrative:: no anesthesia complications noted
--- NOTE | 2019-08-15 12:01 | PCM.SN ---
- Free Text/Narrative Note: Left selective femoral nerve block at the adductor canal for post-procedure pain control under US guidance requested by Dr. Alexander. Time Out: 1142 Start: 1142 End: 1152 Chart reviewed. Consent signed. Questions answered. Appropriate monitors applied. Time out performed. Left mid-shaft femur identified with ultrasound, scanning medially of femur, the femoral artery in the adductor canal visualized , and the femoral nerve located laterally to the artery. The skin was prepped lateral to the ultrasound probe with chlorahexadine times two. The 21ga 4 insulated block needle was inserted under direct ultrasound guidance into the adductor canal. 25mL of 0.5% ropivacaine with 1:200,000 epinephrine was injected circumferentially around the nerve with intermittent negative aspiration noted. Patient tolerated the procedure well. Sterile technique noted along with sterile gloves, mask, and sterile probe cover. See picture on progress note and vital signs on nurses notes. Block completed in PACU. Kehinde Dobbins CRNA
--- NOTE | 2019-08-15 12:16 | CR ---
Left knee: AP and lateral views of the left knee were obtained. Comparison: No prior left knee study. Knee prosthesis is seen. Components are aligned. Soft tissue air is noted from the surgical procedure. Underlying bony structures are intact. Impression: 1. Satisfactory postop radiographic appearance recently placed left knee prosthesis. Diagnostic code #2 This report was dictated in [place] Standard Time
[2019-08-15] MEDS: Acetaminophen/oxyCODONE 325-5 MG Tab PO PRN ×2 (13:47→19:45)
[2019-08-15] MEDS ORDERED: Non-Formulary Medication 1 Each (Fluticasone/Salmeterol 1 PUFF) INH PRN (15:17)
[2019-08-15] MEDS: Cyclobenzaprine 10 MG Tab PO PRN (17:40)
[2019-08-15] MEDS: ceFAZolin 2 GM in Premix Bag 1 BAG IV SCH ×2 (17:40→22:42)
[2019-08-15] MEDS: Famotidine 20 MG Tab PO SCH ×2 (18:18→19:45)
[2019-08-15] MEDS: Docusate Sodium 100 MG Cap PO SCH ×2 (19:25→19:44)
[2019-08-16] MEDS: ceFAZolin 2 GM in Premix Bag 1 BAG IV SCH ×2 (01:18→09:41)
[2019-08-16] MEDS: Acetaminophen/oxyCODONE 325-5 MG Tab PO PRN ×3 (02:24→11:48)
--- NOTE | 2019-08-16 07:03 | PCM.CONSN ---
- General Info Date of Service: 08/16/19 Admission Dx/Problem (Free Text): Admission Diagnosis/Problem Admission Diagnosis/Problem Osteoarthritis of knee Functional Status: Reports: Pain Controlled, Tolerating Diet, Ambulating, Urinating, Incentive Spirometry. Denies: New Symptoms - Review of Systems General: Reports: No Symptoms. Denies: Fever, Weakness HEENT: Reports: No Symptoms. Denies: Headaches, Sore Throat Pulmonary: Reports: No Symptoms. Denies: Shortness of Breath, Pleuritic Chest Pain, Cough, Sputum, Wheezing Cardiovascular: Reports: No Symptoms. Denies: Chest Pain, Palpitations, Dyspnea on Exertion Gastrointestinal: Reports: No Symptoms. Denies: Abdominal Pain, Constipation, Diarrhea, Nausea, Vomiting Genitourinary: Reports: No Symptoms. Denies: Pain Musculoskeletal: Reports: Leg Pain (left) Skin: Reports: No Symptoms. Denies: Cyanosis Neurological: Reports: No Symptoms. Denies: Confusion Psychiatric: Reports: No Symptoms - Patient Data Vitals - Most Recent: Last Vital Signs Temp 98.4 F 08/16/19 02:25 Pulse 64 08/16/19 02:25 Resp 16 08/16/19 02:25 BP 117/55 L 08/16/19 02:25 Pulse Ox 98 08/16/19 02:25 Weight - Most Recent: 188 lb 4.8 oz I&O - Last 24 Hours: Intake & Output 08/15/19 08/16/19 08/16/19 22:59 06:59 14:59 Intake Total 1100 970 Output Total 0 1475 Balance 1100 -505 Lab Results Last 24 Hours: Laboratory Results - last 24 hr 08/16/19 08/16/19 Range/Units 05:42 05:42 WBC 6.64 (3.98-10.04) K/mm3 RBC 3.38 L (3.98-5.22) M/mm3 Hgb 9.4 L (11.2-15.7) gm/dl Hct 31.2 L (34.1-44.9) % MCV 92.3 (79.4-94.8) fl MCH 27.8 (25.6-32.2) pg MCHC 30.1 L (32.2-35.5) g/dl RDW Std Deviation 41.9 (36.4-46.3) fL Plt Count 193 (182-369) K/mm3 MPV 9.6 (9.4-12.3) fl Sodium 141 (136-145) mEq/L Potassium 4.0 (3.5-5.1) mEq/L Chloride 106 (98-107) mEq/L Carbon Dioxide 26 (21-32) mEq/L Anion Gap 13.0 (5-15) BUN 15 (7-18) mg/dL Creatinine 0.6 (0.55-1.02) mg/dL Est Cr Clr Drug Dosing 71.48 mL/min Estimated GFR (MDRD) > 60 (>60) mL/min BUN/Creatinine Ratio 25.0 H (14-18) Glucose 84 (80-115) mg/dL Calcium 8.9 (8.5-10.1) mg/dL Total Bilirubin 0.4 (0.2-1.0) mg/dL AST 25 (15-37) U/L ALT 23 (14-59) U/L Alkaline Phosphatase 59 (46-116) U/L Total Protein 5.2 L (6.4-8.2) g/dl Albumin 2.7 L (3.4-5.0) g/dl Globulin 2.5 gm/dL Albumin/Globulin Ratio 1.1 (1-2) Med Orders - Current: Current Medications Bisacodyl (Dulcolax) 5 mg PO DAILY PRN PRN Reason: Constipation Cholecalciferol (Vitamin D3) 5,000 unit PO DAILY [facility] Cyclobenzaprine HCl (Flexeril) 10 mg PO BID PRN PRN Reason: Spasms Last Admin: 08/15/19 17:40 Dose: 10 mg Docusate Sodium (Colace) 100 mg PO BID [facility] Last Admin: 08/15/19 19:44 Dose: 100 mg Famotidine (Pepcid) 20 mg PO Q12H [facility] Last Admin: 08/15/19 19:45 Dose: 20 mg Cefazolin Sodium/Dextrose 2 gm (/ Premix) 50 mls @ 100 mls/hr IV Q8H [facility] Stop: 08/16/19 08:59 Last Admin: 08/16/19 01:18 Dose: Not Given Magnesium Hydroxide (Milk Of Magnesia) 30 ml PO BID PRN PRN Reason: Constipation Montelukast Sodium (Singulair) 10 mg PO DAILY [facility] Morphine Sulfate (Morphine) 2 mg IVPUSH Q2H PRN PRN Reason: Breakthrough Pain Multivitamins (Thera) 1 each PO DAILY [facility] Naloxone HCl (Narcan) 0.1 mg IVPUSH Q5M PRN PRN Reason: Oversedation Non-Formulary Medication (Fluticasone/Salmeterol) 1 puff INH BID PRN PRN Reason: reactive airway disease Ondansetron HCl (Zofran) 4 mg IVPUSH Q6H PRN PRN Reason: Nausea/Vomiting Oxycodone/Acetaminophen (Percocet 325-5 Mg) 1 - 2 tab PO Q4H PRN PRN Reason: Pain Last Admin: 08/16/19 02:24 Dose: 2 tab Rivaroxaban (Xarelto) 10 mg PO DAILY [facility] Senna (Senna) 8.6 mg PO BID PRN PRN Reason: Constipation Simvastatin (Zocor) 10 mg PO BEDTIME [facility] Discontinued Medications Acetaminophen (Tylenol) 975 mg PO ONETIME [facility] Stop: 08/15/19 23:00 Last Admin: 08/15/19 08:01 Dose: 975 mg Aspirin (Halfprin) 81 mg PO DAILY [facility] Bupivacaine HCl (Sensorcaine-Mpf 0.25%) Confirm Administered Dose 30 ml .ROUTE .STK-MED ONE Stop: 08/15/19 08:30 Last Admin: 08/15/19 10:46 Dose: 30 ml Cefazolin Sodium (Ancef) Confirm Administered Dose 2 gm .ROUTE .STK-MED ONE Stop: 08/15/19 08:15 Last Admin: 08/15/19 10:43 Dose: 2 gm Cefazolin Sodium (Ancef) Confirm Administered Dose 2 gm .ROUTE .STK-MED ONE Stop: 08/15/19 08:30 Morphine Sulfate 8 mg/Epinephrine HCl 0.3 mg/Cefuroxime Sodium 750 mg/Ketorolac Tromethamine 30 mg/Sodium Chloride 27.9 ml 0 mg .XX ONETIME ONE Stop: 08/15/19 10:06 Last Admin: 08/15/19 10:47 Dose: 788.3 mg Ephedrine Sulfate (Ephedrine In Ns) Confirm Administered Dose 25 mg .ROUTE .STK- MED ONE Stop: 08/15/19 10:24 Epinephrine HCl (Adrenalin) Confirm Administered Dose 1 mg .ROUTE .STK-MED ONE Stop: 08/15/19 07:44 Fentanyl (Sublimaze) Confirm Administered Dose 100 mcg .ROUTE .STK-MED ONE Stop: 08/15/19 08:15 Lactated Ringer's (Ringers, Lactated) 1,000 mls @ 125 mls/hr IV ASDIRECTED [facility] Stop: 08/15/19 23:00 Last Admin: 08/15/19 08:20 Dose: 125 mls/hr Lidocaine HCl (Xylocaine-Mpf 1%) Confirm Administered Dose 4 mls @ as directed .ROUTE .STK-MED ONE Stop: 08/15/19 08:15 Lactated Ringer's (Ringers, Lactated) Confirm Administered Dose 1,000 mls @ as directed .ROUTE .STK-MED ONE Stop: 08/15/19 10:07 Lactated Ringer's (Ringers, Lactated) Confirm Administered Dose 1,000 mls @ as directed .ROUTE .STK-MED ONE Stop: 08/15/19 11:04 Iodine (Iodine 2% Mild Tincture) Confirm Administered Dose 30 ml .ROUTE .STK- MED ONE Stop: 08/15/19 08:30 Last Admin: 08/15/19 10:40 Dose: 18 ml Ketorolac Tromethamine (Toradol) 15 mg IVPUSH Q6H PRN PRN Reason: Pain Last Admin: 08/15/19 22:28 Dose: 15 mg Lidocaine/Sodium Bicarbonate (Buffered Lidocaine 1% In Ns 8.4%) 0.25 ml IDERM ONETIME PRN PRN Reason: Prior to IV Start Stop: 08/15/19 18:00 Last Admin: 08/15/19 08:20 Dose: 0.25 ml Midazolam HCl (Versed 1 Mg/Ml) Confirm Administered Dose 2 mg .ROUTE .STK-MED ONE Stop: 08/15/19 08:15 Oxycodone HCl (Oxycontin) 10 mg PO ONETIME [facility] Stop: 08/15/19 23:00 Last Admin: 08/15/19 08:02 Dose: 10 mg Phenylephrine HCl (Phenylephrine In Ns 100 Mcg/Ml) Confirm Administered Dose 1 mg .ROUTE .STK-MED ONE Stop: 08/15/19 09:50 Pregabalin (Lyrica) 50 mg PO ONETIME [facility] Stop: 08/15/19 23:00 Last Admin: 08/15/19 08:01 Dose: 50 mg Propofol (Diprivan 20 Ml) Confirm Administered Dose 600 mg .ROUTE .STK-MED ONE Stop: 08/15/19 08:15 Ropivacaine (Naropin 0.5%) Confirm Administered Dose 30 ml .ROUTE .STK-MED ONE Stop: 08/15/19 07:44 Sodium Chloride (Saline Flush) 10 ml FLUSH ASDIRECTED PRN PRN Reason: Keep Vein Open Stop: 08/15/19 18:00 Tranexamic Acid (Cyklokapron) Confirm Administered Dose 1,000 mg .ROUTE .STK- MED ONE Stop: 08/15/19 08:30 Last Admin: 08/15/19 10:55 Dose: 1,000 mg Vancomycin HCl (Vancomycin) Confirm Administered Dose 1 gm .ROUTE .STK-MED ONE Stop: 08/15/19 08:30 Last Admin: 08/15/19 10:50 Dose: 1 gm - Exam Quality Assessment: DVT Prophylaxis General: Alert, Oriented, Cooperative, No Acute Distress HEENT: Pupils Equal, Pupils Reactive, EOMI, Mucous Membr. Moist/[place] Neck: Supple, Trachea Midline Lungs: Clear to Auscultation, Normal Respiratory Effort Cardiovascular: Regular Rate, Regular Rhythm GI/Abdominal Exam: Normal Bowel Sounds, Soft, Non-Tender, No Distention, No Abnormal Bruit (Female) Exam: Deferred Back Exam: Normal Inspection, Full Range of Motion Extremities: No Pedal Edema, Normal Capillary Refill, Leg Pain (left), Limited Range of Motion, Other (Bandage in place on left leg. Cooling pack in place ) Peripheral Pulses: 2+: Radial (L), Radial (R), Dorsalis Pedis (L), Dorsalis Pedis (R) Skin: Warm, Dry, Intact Wound/Incisions: Dressing Dry and Intact Neurological: No New Focal Deficit Psy/Mental Status: Alert, Normal Affect, Normal Mood Consult PN Assessment/Plan POD#: 1 Procedures: Procedures AIRWAY INHALATION TREATMENT (06/06/19) ASSAY OF BLOOD/URIC ACID (01/12/14) ASSAY OF GGT (09/23/17) ASSAY OF LACTIC ACID (06/10/16) ASSAY OF LIPASE (10/13/17) ASSAY OF NATRIURETIC PEPTIDE (04/29/16) ASSAY OF TROPONIN QUANT (10/22/18) BL SMEAR W/DIFF WBC COUNT (10/22/18) BLOOD CULTURE FOR BACTERIA (10/13/17) BLOOD GASES ANY COMBINATION (01/26/16) C-REACTIVE PROTEIN (09/23/17) CARDIOVASCULAR STRESS TEST (03/04/16) CHEST X-RAY 1 VIEW FRONTAL (06/10/16) CO/MEMBANE DIFFUSE CAPACITY (04/03/16) COMPLETE CBC AUTOMATED (06/06/19) COMPLETE CBC W/AUTO DIFF WBC (10/13/17) COMPREHEN METABOLIC PANEL (06/06/19) CRITICAL CARE ADDL 30 MIN (01/26/16) CRITICAL CARE FIRST HOUR (01/26/16) CT ABD & PELV W/CONTRAST (10/13/17) CT ANGIOGRAPHY CHEST (06/10/16) CT HEAD/BRAIN W/O DYE (01/26/16) CT MAXILLOFACIAL W/O DYE (01/25/16) CULTURE SCREEN ONLY (06/10/16) ECHO EXAM OF ABDOMEN (09/23/17) ELECTROCARDIOGRAM TRACING (10/22/18) EMERGENCY DEPT VISIT (10/22/18) EMERGENCY DEPT VISIT (10/13/17) EMERGENCY DEPT VISIT (06/10/16) EMERGENCY DEPT VISIT (04/29/16) EMERGENCY DEPT VISIT (01/25/16) EMERGENCY DEPT VISIT (01/12/14) EVALUATION OF WHEEZING (04/03/16) FIBRIN DEGRADATION QUANT (09/23/17) GAIT TRAINING THERAPY (06/06/19) HT MUSCLE IMAGE SPECT MULT (03/04/16) HYDRATE IV INFUSION ADD-ON (10/13/17) INFLUENZA ASSAY W/OPTIC (10/22/18) INSERT EMERGENCY AIRWAY (01/26/16) INSERT TEMP BLADDER CATH (01/26/16) MR-STAPH DNA AMP PROBE (06/06/19) OT EVAL LOW COMPLEX 30 MIN (06/06/19) POLYSOM 6/>YRS CPAP 4/> PARM (04/06/16) PROTHROMBIN TIME (06/06/19) PT EVAL LOW COMPLEX 20 MIN (06/06/19) ROUTINE VENIPUNCTURE (06/06/19) SELF CARE MNGMENT TRAINING (06/06/19) STREP A AG IA (10/22/18) THER/DIAG CONCURRENT INF (10/13/17) THER/PROPH/DIAG INJ IV PUSH (09/23/17) THER/PROPH/DIAG IV INF ADDON (01/26/16) THER/PROPH/DIAG IV INF INIT (10/13/17) THERAPEUTIC ACTIVITIES (06/06/19) THERAPEUTIC EXERCISES (06/06/19) THROMBOPLASTIN TIME PARTIAL (06/06/19) TX/PRO/DX INJ NEW DRUG ADDON (10/13/17) TX/PRO/DX INJ SAME DRUG TESTER PRINTED CIRCUIT BOARDS (10/13/17) URINALYSIS AUTO W/SCOPE (10/13/17) VENT MGMT INPAT INIT DAY (01/26/16) WITHDRAWAL OF ARTERIAL BLOOD (01/26/16) X-RAY EXAM CHEST 2 VIEWS (09/23/17) X-RAY EXAM KNEE 4 OR MORE (01/12/14) X-RAY EXAM OF ABDOMEN (12/15/16) X-RAY EXAM OF KNEE 1 OR 2 (06/06/19) (1) S/P total knee arthroplasty SNOMED Code(s): 4300070874841, 848276307, 4573469933798 Code(s): Z96.659 - PRESENCE OF UNSPECIFIED ARTIFICIAL KNEE JOINT Priority: High Current Visit: Yes Qualifiers: Laterality: left Qualified Code(s): Z96.652 - Presence of left artificial knee joint (2) Osteoarthritis SNOMED Code(s): 117114681 Code(s): M19.90 - UNSPECIFIED OSTEOARTHRITIS, UNSPECIFIED SITE Priority: High Current Visit: Yes Qualifiers: Osteoarthritis location: knee Osteoarthritis type: primary Laterality: left Qualified Code(s): M17.12 - Unilateral primary osteoarthritis, left knee (3) Asthma SNOMED Code(s): 618559134 Code(s): J45.909 - UNSPECIFIED ASTHMA, UNCOMPLICATED Priority: Medium Current Visit: No Qualifiers: Asthma severity: unspecified severity Asthma persistence: unspecified Asthma complication type: unspecified Qualified Code(s): J45.909 - Unspecified asthma, uncomplicated (4) Obesity (BMI 30.0-34.9) SNOMED Code(s): 098462125107398 Code(s): E66.9 - OBESITY, UNSPECIFIED Priority: Low Current Visit: No (5) DEBBIE on CPAP SNOMED Code(s): 61219440 Code(s): G47.33 - OBSTRUCTIVE SLEEP APNEA (ADULT) (PEDIATRIC); Z99.89 - DEPENDENCE ON OTHER ENABLING MACHINES AND DEVICES Priority: Medium Current Visit: No (6) History of gastric bypass SNOMED Code(s): 685072691 Code(s): Z98.84 - BARIATRIC SURGERY STATUS Priority: Low Current Visit: No (7) Pulmonary hypertension SNOMED Code(s): 93861180 Code(s): I27.20 - PULMONARY HYPERTENSION, UNSPECIFIED Priority: High Current Visit: Yes Problem List Initiated/Reviewed/Updated: Yes My Orders Last 24 Hours: My Active Orders 08/15/19 15:17 Fluticasone/Salmeterol 1 puff INH BID PRN 08/16/19 09:00 Cholecalciferol (Vitamin D3) [Vitamin D3] 5,000 unit PO DAILY Montelukast [Singulair] 10 mg PO DAILY Multivitamins,Therapeutic [Thera] 1 each PO DAILY 08/16/19 21:00 Simvastatin [Zocor] 10 mg PO BEDTIME Plan: I/P: Acute: S/P right total knee arthroplasty - post-operative day 1 -DVT prophylaxis and pain management per primary care team -PT/OT -IS/RT -Monitor oxygen saturation -Titrate oxygen as needed -Home medications reviewed -Vital signs stable -Monitor labs -Pre-operative Hgb was 12.4; Now 9.4 -Pre-operative GFR was 83; Now >60 Osteoarthritis of left knee -Pain management per primary care team Chronic: Asthma Obesity DEBBIE on CPAP Hx/o abdominal adhesions Hx/o Gastric bypass Pulmonary hypertension Plan: CM for discharge planning GI prophylaxis Home medications as indicated Other orders as listed above Routine AM labs She is a full code. Her PCP is Dr. Doshi. From a hospitalist standpoint Dang is doing well. She has been up ambulating and working with therapies. She has voided and is off of oxygen. Her labs and vital signs remain stable. He has been utilizing her IS. Her pain is controlled. She is cleared for discharge pending primary team and PT/OT agreement. Thank you for allowing us to participate in the care of this patient!!
[2019-08-16] MEDS: Famotidine 20 MG Tab PO SCH (07:15)
--- NOTE | 2019-08-16 08:16 | PCM.SURGPN ---
- General Info Date of Service: 08/16/19 POD#: 1 Functional Status: Reports: Pain Controlled, Tolerating Diet, Ambulating, Urinating, Incentive Spirometry, Other (The pt states she is "sore" but doing well.) - Patient Data Vitals - Most Recent: Last Vital Signs Temp 98.4 F 08/16/19 02:25 Pulse 64 08/16/19 02:25 Resp 16 08/16/19 02:25 BP 117/55 L 08/16/19 02:25 Pulse Ox 98 08/16/19 02:25 Weight - Most Recent: 188 lb 4.8 oz I&O - Last 24 Hours: Intake & Output 08/15/19 08/16/19 08/16/19 22:59 06:59 14:59 Intake Total 1100 970 Output Total 0 1475 Balance 1100 -505 Lab Results Last 24 Hrs: Laboratory Results - last 24 hr 08/16/19 08/16/19 Range/Units 05:42 05:42 WBC 6.64 (3.98-10.04) K/mm3 RBC 3.38 L (3.98-5.22) M/mm3 Hgb 9.4 L (11.2-15.7) gm/dl Hct 31.2 L (34.1-44.9) % MCV 92.3 (79.4-94.8) fl MCH 27.8 (25.6-32.2) pg MCHC 30.1 L (32.2-35.5) g/dl RDW Std Deviation 41.9 (36.4-46.3) fL Plt Count 193 (182-369) K/mm3 MPV 9.6 (9.4-12.3) fl Sodium 141 (136-145) mEq/L Potassium 4.0 (3.5-5.1) mEq/L Chloride 106 (98-107) mEq/L Carbon Dioxide 26 (21-32) mEq/L Anion Gap 13.0 (5-15) BUN 15 (7-18) mg/dL Creatinine 0.6 (0.55-1.02) mg/dL Est Cr Clr Drug Dosing 71.48 mL/min Estimated GFR (MDRD) > 60 (>60) mL/min BUN/Creatinine Ratio 25.0 H (14-18) Glucose 84 (80-115) mg/dL Calcium 8.9 (8.5-10.1) mg/dL Total Bilirubin 0.4 (0.2-1.0) mg/dL AST 25 (15-37) U/L ALT 23 (14-59) U/L Alkaline Phosphatase 59 (46-116) U/L Total Protein 5.2 L (6.4-8.2) g/dl Albumin 2.7 L (3.4-5.0) g/dl Globulin 2.5 gm/dL Albumin/Globulin Ratio 1.1 (1-2) Med Orders - Current: Current Medications Bisacodyl (Dulcolax) 5 mg PO DAILY PRN PRN Reason: Constipation Cholecalciferol (Vitamin D3) 5,000 unit PO DAILY [facility] Cyclobenzaprine HCl (Flexeril) 10 mg PO BID PRN PRN Reason: Spasms Last Admin: 08/15/19 17:40 Dose: 10 mg Docusate Sodium (Colace) 100 mg PO BID [facility] Last Admin: 08/15/19 19:44 Dose: 100 mg Famotidine (Pepcid) 20 mg PO Q12H [facility] Last Admin: 08/16/19 07:15 Dose: 20 mg Cefazolin Sodium/Dextrose 2 gm (/ Premix) 50 mls @ 100 mls/hr IV Q8H [facility] Stop: 08/16/19 08:59 Last Admin: 08/16/19 01:18 Dose: Not Given Magnesium Hydroxide (Milk Of Magnesia) 30 ml PO BID PRN PRN Reason: Constipation Montelukast Sodium (Singulair) 10 mg PO DAILY [facility] Morphine Sulfate (Morphine) 2 mg IVPUSH Q2H PRN PRN Reason: Breakthrough Pain Multivitamins (Thera) 1 each PO DAILY [facility] Naloxone HCl (Narcan) 0.1 mg IVPUSH Q5M PRN PRN Reason: Oversedation Non-Formulary Medication (Fluticasone/Salmeterol) 1 puff INH BID PRN PRN Reason: reactive airway disease Ondansetron HCl (Zofran) 4 mg IVPUSH Q6H PRN PRN Reason: Nausea/Vomiting Oxycodone/Acetaminophen (Percocet 325-5 Mg) 1 - 2 tab PO Q4H PRN PRN Reason: Pain Last Admin: 08/16/19 07:15 Dose: 2 tab Rivaroxaban (Xarelto) 10 mg PO DAILY [facility] Senna (Senna) 8.6 mg PO BID PRN PRN Reason: Constipation Simvastatin (Zocor) 10 mg PO BEDTIME [facility] Discontinued Medications Acetaminophen (Tylenol) 975 mg PO ONETIME [facility] Stop: 08/15/19 23:00 Last Admin: 08/15/19 08:01 Dose: 975 mg Aspirin (Halfprin) 81 mg PO DAILY [facility] Bupivacaine HCl (Sensorcaine-Mpf 0.25%) Confirm Administered Dose 30 ml .ROUTE .STK-MED ONE Stop: 08/15/19 08:30 Last Admin: 08/15/19 10:46 Dose: 30 ml Cefazolin Sodium (Ancef) Confirm Administered Dose 2 gm .ROUTE .STK-MED ONE Stop: 08/15/19 08:15 Last Admin: 08/15/19 10:43 Dose: 2 gm Cefazolin Sodium (Ancef) Confirm Administered Dose 2 gm .ROUTE .STK-MED ONE Stop: 08/15/19 08:30 Morphine Sulfate 8 mg/Epinephrine HCl 0.3 mg/Cefuroxime Sodium 750 mg/Ketorolac Tromethamine 30 mg/Sodium Chloride 27.9 ml 0 mg .XX ONETIME ONE Stop: 08/15/19 10:06 Last Admin: 08/15/19 10:47 Dose: 788.3 mg Ephedrine Sulfate (Ephedrine In Ns) Confirm Administered Dose 25 mg .ROUTE .STK- MED ONE Stop: 08/15/19 10:24 Epinephrine HCl (Adrenalin) Confirm Administered Dose 1 mg .ROUTE .STK-MED ONE Stop: 08/15/19 07:44 Fentanyl (Sublimaze) Confirm Administered Dose 100 mcg .ROUTE .STK-MED ONE Stop: 08/15/19 08:15 Lactated Ringer's (Ringers, Lactated) 1,000 mls @ 125 mls/hr IV ASDIRECTED [facility] Stop: 08/15/19 23:00 Last Admin: 08/15/19 08:20 Dose: 125 mls/hr Lidocaine HCl (Xylocaine-Mpf 1%) Confirm Administered Dose 4 mls @ as directed .ROUTE .STK-MED ONE Stop: 08/15/19 08:15 Lactated Ringer's (Ringers, Lactated) Confirm Administered Dose 1,000 mls @ as directed .ROUTE .STK-MED ONE Stop: 08/15/19 10:07 Lactated Ringer's (Ringers, Lactated) Confirm Administered Dose 1,000 mls @ as directed .ROUTE .STK-MED ONE Stop: 08/15/19 11:04 Iodine (Iodine 2% Mild Tincture) Confirm Administered Dose 30 ml .ROUTE .STK- MED ONE Stop: 08/15/19 08:30 Last Admin: 08/15/19 10:40 Dose: 18 ml Ketorolac Tromethamine (Toradol) 15 mg IVPUSH Q6H PRN PRN Reason: Pain Last Admin: 08/15/19 22:28 Dose: 15 mg Lidocaine/Sodium Bicarbonate (Buffered Lidocaine 1% In Ns 8.4%) 0.25 ml IDERM ONETIME PRN PRN Reason: Prior to IV Start Stop: 08/15/19 18:00 Last Admin: 08/15/19 08:20 Dose: 0.25 ml Midazolam HCl (Versed 1 Mg/Ml) Confirm Administered Dose 2 mg .ROUTE .STK-MED ONE Stop: 08/15/19 08:15 Oxycodone HCl (Oxycontin) 10 mg PO ONETIME [facility] Stop: 08/15/19 23:00 Last Admin: 08/15/19 08:02 Dose: 10 mg Phenylephrine HCl (Phenylephrine In Ns 100 Mcg/Ml) Confirm Administered Dose 1 mg .ROUTE .STK-MED ONE Stop: 08/15/19 09:50 Pregabalin (Lyrica) 50 mg PO ONETIME [facility] Stop: 08/15/19 23:00 Last Admin: 08/15/19 08:01 Dose: 50 mg Propofol (Diprivan 20 Ml) Confirm Administered Dose 600 mg .ROUTE .STK-MED ONE Stop: 08/15/19 08:15 Ropivacaine (Naropin 0.5%) Confirm Administered Dose 30 ml .ROUTE .STK-MED ONE Stop: 08/15/19 07:44 Sodium Chloride (Saline Flush) 10 ml FLUSH ASDIRECTED PRN PRN Reason: Keep Vein Open Stop: 08/15/19 18:00 Tranexamic Acid (Cyklokapron) Confirm Administered Dose 1,000 mg .ROUTE .STK- MED ONE Stop: 08/15/19 08:30 Last Admin: 08/15/19 10:55 Dose: 1,000 mg Vancomycin HCl (Vancomycin) Confirm Administered Dose 1 gm .ROUTE .STK-MED ONE Stop: 08/15/19 08:30 Last Admin: 08/15/19 10:50 Dose: 1 gm - Exam Wound/Incisions: Dressing Dry and Intact General: Alert, Cooperative, No Acute Distress Lungs: Normal Respiratory Effort Extremities: Other (NVS intact for BLE. Stew's negative for BLE. ) - Problem List Review Problem List Initiated/Reviewed/Updated: Yes - My Orders Last 24 Hours: Active Orders 24 hr Category Date Time Status Cooling Warming Measures [RC] ASDIRECTED Care 08/15/19 11:26 Inactive Notify Provider [RC] ASDIRECTED Care 08/15/19 11:26 Active Oxygen Therapy [RC] ASDIRECTED Care 08/15/19 11:26 Active Pulse Oximetry [RC] ASDIRECTED Care 08/15/19 11:26 Active Ready for Discharge [RC] PER UNIT ROUTINE Care 08/16/19 08:14 Ordered Vital Signs [RC] Q15M Care 08/15/19 11:26 Inactive Regular Diet [DIET] Diet 08/15/19 Lunch Active Cholecalciferol (Vitamin D3) [Vitamin D3] Med 08/16/19 09:00 Active 5,000 unit PO DAILY Docusate Sodium [Colace] Med 08/15/19 21:00 Active 100 mg PO BID Fluticasone/Salmeterol Med 08/15/19 15:17 Pending 1 puff INH BID PRN Montelukast [Singulair] Med 08/16/19 09:00 Active 10 mg PO DAILY Multivitamins,Therapeutic [Thera] Med 08/16/19 09:00 Active 1 each PO DAILY Rivaroxaban [Xarelto] Med 08/16/19 09:00 Active 10 mg PO DAILY Simvastatin [Zocor] Med 08/16/19 21:00 Active 10 mg PO BEDTIME ceFAZolin [Ancef] 2 gm Med 08/15/19 16:30 Active Premix Bag 1 bag IV Q8H Medication Orders Bisacodyl (Dulcolax) 5 mg PO DAILY PRN PRN Reason: Constipation Cholecalciferol (Vitamin D3) 5,000 unit PO DAILY [facility] Cyclobenzaprine HCl (Flexeril) 10 mg PO BID PRN PRN Reason: Spasms Last Admin: 08/15/19 17:40 Dose: 10 mg Docusate Sodium (Colace) 100 mg PO BID [facility] Last Admin: 08/15/19 19:44 Dose: 100 mg Admin: 08/15/19 19:25 Dose: 100 mg Famotidine (Pepcid) 20 mg PO Q12H [facility] Last Admin: 08/16/19 07:15 Dose: 20 mg Admin: 08/15/19 19:45 Dose: 20 mg Admin: 08/15/19 18:18 Dose: Cefazolin Sodium/Dextrose 2 gm (/ Premix) 50 mls @ 100 mls/hr IV Q8H [facility] Stop: 08/16/19 08:59 Last Admin: 08/16/19 01:18 Dose: Not Given Admin: 08/15/19 22:42 Dose: 100 mls/hr Infusion: 08/15/19 18:10 Dose: 100 mls/hr Admin: 08/15/19 17:40 Dose: 100 mls/hr Magnesium Hydroxide (Milk Of Magnesia) 30 ml PO BID PRN PRN Reason: Constipation Montelukast Sodium (Singulair) 10 mg PO DAILY [facility] Morphine Sulfate (Morphine) 2 mg IVPUSH Q2H PRN PRN Reason: Breakthrough Pain Multivitamins (Thera) 1 each PO DAILY [facility] Naloxone HCl (Narcan) 0.1 mg IVPUSH Q5M PRN PRN Reason: Oversedation Non-Formulary Medication (Fluticasone/Salmeterol) 1 puff INH BID PRN PRN Reason: reactive airway disease Ondansetron HCl (Zofran) 4 mg IVPUSH Q6H PRN PRN Reason: Nausea/Vomiting Oxycodone/Acetaminophen (Percocet 325-5 Mg) 1 - 2 tab PO Q4H PRN PRN Reason: Pain Last Admin: 08/16/19 07:15 Dose: 2 tab Admin: 08/16/19 02:24 Dose: 2 tab Admin: 08/15/19 19:45 Dose: 2 tab Admin: 08/15/19 13:47 Dose: 2 tab Rivaroxaban (Xarelto) 10 mg PO DAILY [facility] Senna (Senna) 8.6 mg PO BID PRN PRN Reason: Constipation Simvastatin (Zocor) 10 mg PO BEDTIME [facility] - Assessment Assessment (Free Text/Narrative):: POD#1 - left TKA - Plan Plan (Free Text/Narrative):: 1. Hgb 9.4. 2. Xarelto (hx gastric bypass), TEDs, frequent mobility. 3. Discharge to home today. 4. Outpatient therapy. The pt's case was discussed with Dr. Alexander. Dr. Alexander also evaluated the pt today.
[2019-08-16] MEDS ORDERED: Cholecalciferol (Vitamin D3) 5,000 UNIT Tab PO SCH (09:00)
[2019-08-16] MEDS ORDERED: Montelukast 10 MG Tab PO SCH (09:00)
[2019-08-16] MEDS ORDERED: Multivitamins,Therapeutic Tab PO SCH (09:00)
[2019-08-16] MEDS ORDERED: Rivaroxaban 10 MG Tab PO SCH (09:00)
[2019-08-16] MEDS ORDERED: Aspirin 81 MG Tab.EC PO SCH (09:00)
[2019-08-16] MEDS: Docusate Sodium 100 MG Cap PO SCH (09:42)
[2019-08-16] MEDS: Cyclobenzaprine 10 MG Tab PO PRN (09:45)
--- NOTE | 2019-08-16 11:00 | PCM48HPAN ---
Post Anesthesia Note - EVALUATION WITHIN 48HRS OF ANESTHETIC Vital Signs in Normal Range: Yes Patient Participated in Evaluation: Yes Respiratory Function Stable: Yes Airway Patent: Yes Cardiovascular Function Stable: Yes Hydration Status Stable: Yes Pain Control Satisfactory: Yes Nausea and Vomiting Control Satisfactory: Yes Mental Status Recovered: Yes Vital Signs: Last Vital Signs Temp 36.9 C 08/16/19 02:25 Pulse 64 08/16/19 02:25 Resp 16 08/16/19 02:25 BP 117/55 L 08/16/19 02:25 Pulse Ox 98 08/16/19 02:25
[2019-08-16] MEDS ORDERED: Ketorolac 15 MG/ML SDV IVPUSH ONE (13:00)
[2019-08-16] MEDS ORDERED: oxyCODONE 5 MG Tab PO ONE (13:30)
[2019-08-16] MEDS ORDERED: Simvastatin 10 MG Tab PO SCH (21:00)
[2019-08-16 22:02] VITALS: BP 147/68; PULSE 91
--- NOTE | 2019-08-18 15:46 | PCM.DCSUM1 ---
Discharge Summary - Hospital Course Brief History: Dang is a 64 yo female who underwent left TKA with Dr. Alexander on . The procedure was completed under spinal anesthesia with sedation and a post-operative adductor canal block was placed. The pt tolerated the procedure well and was admitted to the Medical-Surgical Unit. Medical management was provided by the Hospitalist service. The pt's Hospital course was uneventful. The pt's Hgb on POD#1 was 9.4. On POD#1, Xarelto 10 mg PO daily was initiated for VTE prophylaxis. SCDs and TEDs were also ordered. A Mepilex dressing was placed at the incision site at the time of surgery and remained clean and dry. The pt participated in P.T. and O.T. and progressed well. The pt was allowed to WBAT. On POD#1, the pt was deemed appropriate to discharge to home with her family. - Discharge Data Discharge Date: 08/16/19 Discharge Disposition: Home, Self-Care 01 Condition: Good - Referral to Home Health Primary Care Physician: Jorge Alberto Doshi Jr, MD - Patient Summary/Data Consults: Consultations 08/15/19 06:46 OT Evaluation and Treatment [CONS] Routine PT Evaluation and Treatment [CONS] Routine 08/15/19 06:47 Consult to Physician [CONS] Routine - Patient Instructions Diet: Usual Diet as Tolerated Activity: Apply Ice, As Tolerated, Elevate Extremity, Full Weight Bearing Driving: Do Not Drive Showering/Bathing: May Shower Wound/Incision Care: Keep Operative Site/Wound Site Clean and Dry, Do NOT Change Dressing Notify Provider of: Fever, Increased Pain, Swelling and Redness, Drainage, Nausea and/or Vomiting Other/Special Instructions: Please get up and moving around EVERY HOUR while awake. This helps to prevent blood clots. Please use your walker and have help with mobility as needed. Take a short walk in your home every hour while awake. Please take the Xarelto blood thinner medication daily as directed. At home, please complete the exercises that you learned during the Hospital stay. Schedule for physical therapy. Use the pain medication as needed. The medication may cause drowsiness and constipation. Contact your primary care provider for instructions if you are constipated. You may use a stool softener like docusate sodium or Colace 100mg twice daily and/or a laxative like Miralax daily for constipation. Increase your water and fiber intake while you are using the pain medication. Discontinue use of the pain medication as soon as able. Please do not use other medications that may cause drowsiness (other pain medications, anxiety pills, cold medications, sleeping pills, etc) while using the prescription pain medication. Do not use alcohol while using the pain medication. You may use acetaminophen or Tylenol for pain management, however, please ensure you are not using over 4000 mg or 4 grams of acetaminophen per day from all sources. Your pain medication has 325mg of acetaminophen per tablet. At this time, please do not use ibuprofen (Motrin, Advil) or naproxen (Aleve) for pain management as you are using the Xarelto. When the Xarelto course is completed in 4 weeks, you can resume use of 81mg aspirin daily. Wear the YVES hose during the day and you may remove these at night. Elevate the limb to decrease swelling. Place ice to the area often. Place a towel between your skin and the blue pad. Use the incentive spirometer often. Take deep breaths throughout the day. Please keep the dressing in place until follow-up. Notify the Clinic if the dressing becomes saturated. Increase your protein intake while you are healing. If you have diabetes, please closely monitor your blood sugars and notify your primary care provider with abnormal values. Elevated blood sugars increases the risk of infection. Call the Clinic with questions or concerns - [phone]. - Discharge Plan *PRESCRIPTION DRUG MONITORING PROGRAM REVIEWED*: No *COPY OF PRESCRIPTION DRUG MONITORING REPORT IN PATIENT ANGELINA: No Prescriptions/Med Rec: Acetaminophen/oxyCODONE [Percocet 325-5 MG] 1 - 2 tab PO Q4H PRN #60 tablet PRN Reason: Pain Cyclobenzaprine [Flexeril] 10 mg PO BID PRN #20 tablet PRN Reason: Spasms Rivaroxaban [Xarelto] 10 mg PO DAILY #30 tablet Home Medications: Home Meds Montelukast [Singulair] 10 mg PO DAILY 11/13/17 [History] Acetaminophen 650 mg PO Q6H PRN 06/03/19 [History] atorvaSTATin [Lipitor] 10 mg PO DAILY 06/06/19 [History] Cholecalciferol (Vitamin D3) [Vitamin D3] 5,000 unit PO DAILY 08/10/19 [History] Fluticasone/Salmeterol [Advair 250-50] 1 puff INH BID PRN 08/10/19 [History] Biotin 1,000 mcg PO DAILY 08/15/19 [History] Multivitamin [Multivitamins] 1 cap PO DAILY 08/15/19 [History] Acetaminophen/oxyCODONE [Percocet 325-5 MG] 1 - 2 tab PO Q4H PRN #60 tablet 11/30 [Rx] Bisacodyl [Dulcolax] 5 mg PO DAILY PRN tablet 08/16/19 [Rx] Cyclobenzaprine [Flexeril] 10 mg PO BID PRN #20 tablet 08/16/19 [Rx] Docusate Sodium [Colace] 100 mg PO BID cap 08/16/19 [Rx] Famotidine [Pepcid] 20 mg PO Q12H tablet 08/16/19 [Rx] Magnesium Hydroxide [Milk of Magnesia] 30 ml PO BID PRN cup 08/16/19 [Rx] Rivaroxaban [Xarelto] 10 mg PO DAILY #30 tablet 08/16/19 [Rx] Sennosides [Senna] 8.6 mg PO BID PRN tablet 08/16/19 [Rx] Patient Handouts: Rivaroxaban oral tablets Referrals: Shahla Sampson PA-C [Physician Land Clearer] - (08/23 1230 WITH Gary Noriega Physical Therapist 08/23 1pm with Shahla 08/30 at 1:45pm with Shahla 10/04 at 9am with Shahla) - Discharge Summary/Plan Comment DC Time >30 min.: No - Patient Data Vitals - Most Recent: Last Vital Signs Temp 98.1 F 08/16/19 11:47 Pulse 91 08/16/19 11:47 Resp 20 08/16/19 11:47 BP 147/68 H 08/16/19 11:47 Pulse Ox 97 08/16/19 11:47 Weight - Most Recent: 188 lb 4.8 oz Med Orders - Current: Current Medications Discontinued Medications Acetaminophen (Tylenol) 975 mg PO ONETIME [facility] Stop: 08/15/19 23:00 Last Admin: 08/15/19 08:01 Dose: 975 mg Aspirin (Halfprin) 81 mg PO DAILY [facility] Bisacodyl (Dulcolax) 5 mg PO DAILY PRN PRN Reason: Constipation Bupivacaine HCl (Sensorcaine-Mpf 0.25%) Confirm Administered Dose 30 ml .ROUTE .STK-MED ONE Stop: 08/15/19 08:30 Last Admin: 08/15/19 10:46 Dose: 30 ml Cefazolin Sodium (Ancef) Confirm Administered Dose 2 gm .ROUTE .STK-MED ONE Stop: 08/15/19 08:15 Last Admin: 08/15/19 10:43 Dose: 2 gm Cefazolin Sodium (Ancef) Confirm Administered Dose 2 gm .ROUTE .STK-MED ONE Stop: 08/15/19 08:30 Cholecalciferol (Vitamin D3) 5,000 unit PO DAILY [facility] Last Admin: 08/16/19 09:42 Dose: 5,000 unit Morphine Sulfate 8 mg/Epinephrine HCl 0.3 mg/Cefuroxime Sodium 750 mg/Ketorolac Tromethamine 30 mg/Sodium Chloride 27.9 ml 0 mg .XX ONETIME ONE Stop: 08/15/19 10:06 Last Admin: 08/15/19 10:47 Dose: 788.3 mg Cyclobenzaprine HCl (Flexeril) 10 mg PO BID PRN PRN Reason: Spasms Last Admin: 08/16/19 09:45 Dose: 10 mg Docusate Sodium (Colace) 100 mg PO BID [facility] Last Admin: 08/16/19 09:42 Dose: 100 mg Ephedrine Sulfate (Ephedrine In Ns) Confirm Administered Dose 25 mg .ROUTE .STK- MED ONE Stop: 08/15/19 10:24 Epinephrine HCl (Adrenalin) Confirm Administered Dose 1 mg .ROUTE .STK-MED ONE Stop: 08/15/19 07:44 Famotidine (Pepcid) 20 mg PO Q12H [facility] Last Admin: 08/16/19 07:15 Dose: 20 mg Fentanyl (Sublimaze) Confirm Administered Dose 100 mcg .ROUTE .STK-MED ONE Stop: 08/15/19 08:15 Lactated Ringer's (Ringers, Lactated) 1,000 mls @ 125 mls/hr IV ASDIRECTED [facility] Stop: 08/15/19 23:00 Last Admin: 08/15/19 08:20 Dose: 125 mls/hr Cefazolin Sodium/Dextrose 2 gm (/ Premix) 50 mls @ 100 mls/hr IV Q8H [facility] Stop: 08/16/19 08:59 Last Admin: 08/16/19 09:41 Dose: 100 mls/hr Lidocaine HCl (Xylocaine-Mpf 1%) Confirm Administered Dose 4 mls @ as directed .ROUTE .STK-MED ONE Stop: 08/15/19 08:15 Lactated Ringer's (Ringers, Lactated) Confirm Administered Dose 1,000 mls @ as directed .ROUTE .STK-MED ONE Stop: 08/15/19 10:07 Lactated Ringer's (Ringers, Lactated) Confirm Administered Dose 1,000 mls @ as directed .ROUTE .STK-MED ONE Stop: 08/15/19 11:04 Iodine (Iodine 2% Mild Tincture) Confirm Administered Dose 30 ml .ROUTE .STK- MED ONE Stop: 08/15/19 08:30 Last Admin: 08/15/19 10:40 Dose: 18 ml Ketorolac Tromethamine (Toradol) 15 mg IVPUSH Q6H PRN PRN Reason: Pain Last Admin: 08/15/19 22:28 Dose: 15 mg Ketorolac Tromethamine (Toradol) 15 mg IVPUSH ONETIME ONE Stop: 08/16/19 13:01 Last Admin: 08/16/19 13:17 Dose: 15 mg Lidocaine/Sodium Bicarbonate (Buffered Lidocaine 1% In Ns 8.4%) 0.25 ml IDERM ONETIME PRN PRN Reason: Prior to IV Start Stop: 08/15/19 18:00 Last Admin: 08/15/19 08:20 Dose: 0.25 ml Magnesium Hydroxide (Milk Of Magnesia) 30 ml PO BID PRN PRN Reason: Constipation Midazolam HCl (Versed 1 Mg/Ml) Confirm Administered Dose 2 mg .ROUTE .STK-MED ONE Stop: 08/15/19 08:15 Montelukast Sodium (Singulair) 10 mg PO DAILY [facility] Last Admin: 08/16/19 09:42 Dose: 10 mg Morphine Sulfate (Morphine) 2 mg IVPUSH Q2H PRN PRN Reason: Breakthrough Pain Multivitamins (Thera) 1 each PO DAILY [facility] Last Admin: 08/16/19 09:41 Dose: 1 each Naloxone HCl (Narcan) 0.1 mg IVPUSH Q5M PRN PRN Reason: Oversedation Non-Formulary Medication (Fluticasone/Salmeterol) 1 puff INH BID PRN PRN Reason: reactive airway disease Ondansetron HCl (Zofran) 4 mg IVPUSH Q6H PRN PRN Reason: Nausea/Vomiting Oxycodone HCl (Oxycontin) 10 mg PO ONETIME [facility] Stop: 08/15/19 23:00 Last Admin: 08/15/19 08:02 Dose: 10 mg Oxycodone HCl (Oxycodone) 5 mg PO ONETIME ONE Stop: 08/16/19 13:31 Last Admin: 08/16/19 14:00 Dose: 5 mg Oxycodone/Acetaminophen (Percocet 325-5 Mg) 1 - 2 tab PO Q4H PRN PRN Reason: Pain Last Admin: 08/16/19 11:48 Dose: 2 tab Phenylephrine HCl (Phenylephrine In Ns 100 Mcg/Ml) Confirm Administered Dose 1 mg .ROUTE .STK-MED ONE Stop: 08/15/19 09:50 Pregabalin (Lyrica) 50 mg PO ONETIME [facility] Stop: 08/15/19 23:00 Last Admin: 08/15/19 08:01 Dose: 50 mg Propofol (Diprivan 20 Ml) Confirm Administered Dose 600 mg .ROUTE .STK-MED ONE Stop: 08/15/19 08:15 Rivaroxaban (Xarelto) 10 mg PO DAILY [facility] Last Admin: 08/16/19 09:41 Dose: 10 mg Ropivacaine (Naropin 0.5%) Confirm Administered Dose 30 ml .ROUTE .STK-MED ONE Stop: 08/15/19 07:44 Senna (Senna) 8.6 mg PO BID PRN PRN Reason: Constipation Simvastatin (Zocor) 10 mg PO BEDTIME [facility] Sodium Chloride (Saline Flush) 10 ml FLUSH ASDIRECTED PRN PRN Reason: Keep Vein Open Stop: 08/15/19 18:00 Tranexamic Acid (Cyklokapron) Confirm Administered Dose 1,000 mg .ROUTE .STK- MED ONE Stop: 08/15/19 08:30 Last Admin: 08/15/19 10:55 Dose: 1,000 mg Vancomycin HCl (Vancomycin) Confirm Administered Dose 1 gm .ROUTE .STK-MED ONE Stop: 08/15/19 08:30 Last Admin: 08/15/19 10:50 Dose: 1 gm
--- NOTE | 2019-08-19 14:15 | PCM.OPNOTE ---
- General Post-Op/Procedure Note Date of Surgery/Procedure: 08/15/19 Operative Procedure(s): left total knee arthroplasty Pre Op Diagnosis: left knee osteoarthrosis Post-Op Diagnosis: Same Anesthesia Technique: Local, MAC, Spinal Primary Surgeon: Everett Alexander Anesthesia Provider: Kehinde Dobbins [employer] Operator: Shahla Sampson [employer] Operator: Yanira Amezcua in mLs: 5 Complications: None Condition: Good Free Text/Narrative:: 4/4 9mm 32x10
--- NOTE | 2019-08-19 14:36 | OR ---
DATE OF OPERATION: 08/15/2019 SURGEON: Everett Alexander MD OPERATION PERFORMED: Left total knee arthroplasty. PREOPERATIVE DIAGNOSIS: Left knee osteoarthrosis. POSTOPERATIVE DIAGNOSIS: Left knee osteoarthrosis. ANESTHESIA: Local MAC with spinal. ANESTHESIA PROVIDER: Kehinde Dobbins CRNA HEALTH AND NUTRITION SPECIALIST: Shahla Sampson PA-C and Yanira Amezcua LPN ESTIMATED BLOOD LOSS: 5 mL. COMPLICATIONS: None. CONDITION: Stable. IMPLANTS: 1. Codey size 4 cemented PS femur. 2. [place] size 4 cemented [place] tibial base plate. 3. [place] size 4, 9-mm PS X3 polyethylene insert. 4. Codey size 32 x 10 mm cemented asymmetric patella. DESCRIPTION OF PROCEDURE: The patient was identified in the preop holding area. Proper site was marked and identified by the surgeon. The patient was taken back to the operating theater. After adequate anesthesia, the patient's left lower extremity had a nonsterile tourniquet applied and it was sterilely prepped and draped in the usual sterile fashion. OR time-out was performed. The patient received 2 g IV Ancef. At this time, the left lower extremity was exsanguinated. Tourniquet was insufflated to 300 mmHg. Standard medial parapatellar incision was made. Medial parapatellar arthrotomy was created. Deep fibers of the MCL were raised and anterior fat pad was resected. At this time, attention was turned to the patella. Patella measured 22, it was resected to a 13 for 32 x 10 mm patella. Drill holes were then drilled and found to be in adequate position. The drill was then drilled in the distal femur and the intramedullary distal femoral cutting guide was then placed. 8 mm was resected off the distal femur and was found to be an adequate resection. Sizing guide was placed. It was found to be a size 4 cemented PS femur that was shown on the implant record at the beginning of this dictation. The drill holes were drilled for the epicondylar axis using [place] line and epicondyles as reference. At this time, the 4-in-1 cutting block was placed. An anterior posterior and anterior and posterior chamfer cuts were then completed. Box cut was completed. Attention was turned to the tibia. The posterior medial lateral retractors were placed. The extramedullary tibial guide was placed. It was placed in the old footprint of the ACL. It was aligned with the center of the ankle and 0 degrees of slope, 9 mm was then resected off the unaffected side. There was found to be an acceptable reduction. At this time, posterior osteophytes were removed along with medial and lateral meniscus. A trial implant was placed with a correct sized tibia that was mentioned at the beginning of the dictation. A [place] size 4, 9-mm PS X3 polyethylene insert was then placed. The patient's knee was brought through range of motion. The patella was tracking centrally and was stable to varus and valgus stress. Alignment was found to be roughly at 0 degrees. The tibia was stamped and drilled in proper rotation. The universal tibial base plate was impacted in place. Next, the [place] size 4 cemented PS femur impacted into place and the [place] size 4, 9-mm PS X3 polyethylene insert was placed. The patient's knee was brought into full extension. The patella was then cemented in place at this time. One liter dilute Betadine solution was irrigated through the knee along with 3 L of pulse lavage irrigation with Ancef. Periarticular injection was then completed. The patient's knee was brought through a range of motion. Once the cement had time to set up and it was found to be stable to varus valgus stress, the patella was tracking centrally with full range of motion. At this time, a #2 barbed suture was used for closure of the medial parapatellar arthrotomy. Topical tranexamic acid was placed. 2-0 Vicryl was used subcutaneously, Prineo was used for the skin. The patient tolerated the procedure well and was sent to the PACU in stable condition. PAULA /[id number] ZARA
== END 2019-08-16 15:18 | disposition home or self-care (01) | DRG 470 ==
LOC: JD.MS 06:52 → EDSTATUS 07:30 → JD.MS 07:33 → JD.SDS 07:33 → JD.MS 07:34 → UNDOADMIN 07:34 → JD.MS 07:34 → JD.SDS 07:34 → UNDODISIN 08-16 15:18
PROVIDERS: ADMIT Orthopaedic Surgery; ATTEND Orthopaedic Surgery
PROC: 0SRD0J9 Replacement of Left Knee Joint with Synthetic Substitute, Cemented, Open Approach (ICD-10-PCS; principal; 2019-08-15)
PROC: 3E0T3BZ Introduction of Anesthetic Agent into Peripheral Nerves and Plexi, Percutaneous Approach (ICD-10-PCS; 2019-08-15)
DX: M17.12 Unilateral primary osteoarthritis, left knee (principal); M25.762 Osteophyte, left knee; G89.18 Other acute postprocedural pain; G47.33 Obstructive sleep apnea (adult) (pediatric); J45.909 Unspecified asthma, uncomplicated; E66.9 Obesity, unspecified; I27.20 Pulmonary hypertension, unspecified; H54.7 Unspecified visual loss; E78.00 Pure hypercholesterolemia, unspecified; Z90.49 Acquired absence of other specified parts of digestive tract; Z68.33 Body mass index [BMI] 33.0-33.9, adult; Z91.048 Other nonmedicinal substance allergy status; Z79.82 Long term (current) use of aspirin; Z79.899 Other long term (current) drug therapy; Z98.84 Bariatric surgery status
CPT/HCPCS: 01402; 36415; 64450; 73560-26-LT; 73560-LT; 80053; 85027; 87641; 97110-GP; 97116-GP; 97161-GP; 97165-GO; 97535-GO; A9270-GY; C1713; C1776; J0171; J0690; J0697; J1885; J2001; J2250; J2270; J2370; J2704; J2795; J3010; J3370; J3490; J7050; J7120

== ENCOUNTER 2020-12-12 13:34 | Emergency (ER) | payer MEDICARE, MEDICAID ==
[2020-12-12 13:44] VITALS: BP 160/69; PULSE 90
[2020-12-12] MEDS ORDERED: Ketorolac 30 MG/ML SDV IVPUSH ONE (13:50)
[2020-12-12] MEDS ORDERED: Sodium Chloride 0.9% 10 ML Syringe FLUSH PRN (13:50)
[2020-12-12] MEDS ORDERED: Metoclopramide 10 MG/2 ML SDV IVPUSH ONE (13:50)
[2020-12-12] MEDS ORDERED: Sodium Chloride 0.9% 1,000 ML IV ONE (13:50)
[2020-12-12] MEDS ORDERED: diphenhydrAMINE 50 MG/ML SDV IVPUSH ONE (13:50)
--- NOTE | 2020-12-12 14:10 | EDM.PDOC ---
ED HPI GENERAL MEDICAL PROBLEM - General Chief Complaint: Gastrointestinal Problem Stated Complaint: VOMITING/HEADACHE/DIARRHEA Time Seen by Provider: 12/12/20 13:43 Source of Information: Reports: Patient, RN Notes Reviewed History Limitations: Reports: No Limitations - History of Present Illness INITIAL COMMENTS - FREE TEXT/NARRATIVE: Patient is a 65-year-old female who presents to the ED for her gastrointestinal issues. Patient notes that she awoke at around 3 AM this morning, with vigorous vomiting, and diarrhea. She notes that she is had multiple bouts of each so muc h that she cannot remember how many times she has had vomiting and diarrhea. She notes that she has had no blood in her diarrhea, she is not been able to keep anything down for food or water this morning, her last solid food intake was supper last night. She states that no one else in the house is sick like this, so she does not think it could be foodborne. She thought maybe she had a fever earlier this morning of 100 F, but she never actually checked her temperature. She did not take any medications for the suspected fever. She is complaining of all over body aches, generalized abdominal pain due to the vomiting and diarrhea, and a headache that she has had. Does note history of diverticulosis as well. She has had no cough or shortness of breath with any of these symptoms. - Related Data Allergies Allergy/AdvReac Type Severity Reaction Status Date / Time No Known Allergies Allergy Verified 12/12/20 13:44 Home Meds: Home Meds Montelukast [Singulair] 10 mg PO DAILY 11/13/17 [History] Acetaminophen 650 mg PO Q6H PRN 06/03/19 [History] atorvaSTATin [Lipitor] 10 mg PO DAILY 06/06/19 [History] Cholecalciferol (Vitamin D3) [Vitamin D3] 5,000 unit PO DAILY 08/10/19 [History] Fluticasone/Salmeterol [Advair 250-50] 1 puff INH BID PRN 08/10/19 [History] Biotin 1,000 mcg PO DAILY 08/15/19 [History] Multivitamin [Multivitamins] 1 cap PO DAILY 08/15/19 [History] Acetaminophen/oxyCODONE [Percocet 325-5 MG] 1 - 2 tab PO Q4H PRN #60 tablet 08/16/19 [Rx] Cyclobenzaprine [Flexeril] 10 mg PO BID PRN #20 tablet 08/16/19 [Rx] Docusate Sodium [Colace] 100 mg PO BID cap 08/16/19 [Rx] Famotidine [Pepcid] 20 mg PO Q12H tablet 08/16/19 [Rx] Magnesium Hydroxide [Milk of Magnesia] 30 ml PO BID PRN cup 08/16/19 [Rx] Rivaroxaban [Xarelto] 10 mg PO DAILY #30 tablet 08/16/19 [Rx] Sennosides [Senna] 8.6 mg PO BID PRN tablet 08/16/19 [Rx] bisacodyL [Dulcolax] 5 mg PO DAILY PRN tablet 08/16/19 [Rx] Ondansetron [Zofran ODT] 4 mg PO Q8H PRN #15 tab.dis 12/12/20 [Rx] Past Medical History HEENT History: Reports: Allergic Rhinitis, Impaired Vision, Other (See Below) Other HEENT History: Seasonal allergies Cardiovascular History: Reports: High Cholesterol, Pulmonary Hypertension Respiratory History: Reports: Asthma, Sleep Apnea Other Respiratory History: Uses CPAP Gastrointestinal History: Reports: Diverticulosis [employer] History: Reports: Musculoskeletal History: Reports: Osteoarthritis, Other (See Below) Other Musculoskeletal History: Degenerative joint disease Endocrine/Metabolic History: Reports: Obesity/BMI 30+ - Past Surgical History HEENT Surgical History: Reports: Tonsillectomy GI Surgical History: Reports: Bariatric Procedure, Cholecystectomy, Colonoscopy, Other (See Below) Other GI Surgeries/Procedures: Gastric Bypass, multiple hernia repairs Musculoskeletal Surgical History: Reports: Knee Replacement, Other (See Below) Other Musculoskeletal Surgeries/Procedures:: L knee and both wrists Social & Family History - Family History Family Medical History: No Pertinent Family History Cardiac: Reports: PVD/COD, Other (See Below) Other Cardiac Family History: CVA - Tobacco Use Tobacco Use Status *Q: Never Tobacco User - Caffeine Use Caffeine Use: Reports: Coffee - Recreational Drug Use Recreational Drug Use: No - Living Situation & Occupation Living situation: Reports: , with Spouse ED ROS GENERAL - Review of Systems Review Of Systems: Comprehensive ROS is negative, except as noted in HPI. ED EXAM, GI/ABD - Physical Exam Exam: See Below Exam Limited By: No Limitations General Appearance: Alert, WD/WN, No Apparent Distress Respiratory/Chest: No Respiratory Distress, Lungs Clear, Normal Breath Sounds, No Accessory Muscle Use, Chest Non-Tender Cardiovascular: Normal Peripheral Pulses, Regular Rate, Rhythm, No Edema GI/Abdominal Exam: Normal Bowel Sounds, Soft, No Distention, No Mass, Tender (generalized abd tenderness) Rectal (Female) Exam: Deferred Extremities: Normal Inspection, Normal Capillary Refill Neurological: Alert, Oriented, Normal Cognition, No Motor/Sensory Deficits Psychiatric: Normal Affect, Normal Mood Skin Exam: Warm, Dry, Intact, Normal Color, No Rash Course - Vital Signs Last Recorded V/S: Last Vital Signs Temp 98.2 F 12/12/20 13:40 Pulse 90 12/12/20 13:40 Resp 18 12/12/20 13:40 BP 160/69 H 12/12/20 13:40 Pulse Ox 97 12/12/20 13:40 - Orders/Labs/Meds Orders: Active Orders 24 hr Category Date Time Status Peripheral IV Care [RC] . DIRECTED Care 12/12/20 13:50 Ordered Abdomen 2V AP Flat Upright [CR] Stat Exams 12/12/20 13:51 Ordered Sodium Chloride 0.9% [Saline Flush] Med 12/12/20 13:50 Ordered 10 ml FLUSH ASDIRECTED PRN Peripheral IV Insertion Adult [OM.PC] Routine Oth 12/12/20 13:50 Ordered Medication Orders Sodium Chloride (Sodium Chloride 0.9% 10 Ml Syringe) 10 ml FLUSH ASDIRECTED PRN PRN Reason: Keep Vein Open Last Admin: 12/12/20 14:07 Dose: 10 ml Documented by: TYLER Labs: Laboratory Tests 12/12/20 12/12/20 Range/Units 14:06 14:06 WBC 9.64 (3.98-10.04) K/mm3 RBC 4.32 (3.98-5.22) M/mm3 Hgb 12.1 D (11.2-15.7) gm/dl Hct 38.4 (34.1-44.9) % MCV 88.9 D (79.4-94.8) fl MCH 28.0 (25.6-32.2) pg MCHC 31.5 L (32.2-35.5) g/dl RDW Std Deviation 41.7 (36.4-46.3) fL Plt Count 190 (182-369) K/mm3 MPV 10.1 (9.4-12.3) fl Neut % (Auto) 91.5 H (34.0-71.1) % Lymph % (Auto) 4.0 L (19.3-51.7) % Ogle % (Auto) 3.7 L (4.7-12.5) % Eos % (Auto) 0.5 L (0.7-5.8) Baso % (Auto) 0.2 (0.1-1.2) % Neut # (Auto) 8.81 H (1.56-6.13) K/mm3 Lymph # (Auto) 0.39 L (1.18-3.74) K/mm3 Ogle # (Auto) 0.36 (0.24-0.36) K/mm3 Eos # (Auto) 0.05 (0.04-0.36) K/mm3 Baso # (Auto) 0.02 (0.01-0.08) K/mm3 Manual Slide Review Abnormal smear Sodium 141 (136-145) mEq/L Potassium 4.1 (3.5-5.1) mEq/L Chloride 104 (98-107) mEq/L Carbon Dioxide 26 (21-32) mEq/L Anion Gap 15.1 H (5-15) BUN 18 (7-18) mg/dL Creatinine 0.8 (0.55-1.02) mg/dL Est Cr Clr Drug Dosing 52.90 mL/min Estimated GFR (MDRD) > 60 (>60) mL/min BUN/Creatinine Ratio 22.5 H (14-18) Glucose 127 H (80-115) mg/dL Calcium 9.1 (8.5-10.1) mg/dL Total Bilirubin 0.6 (0.2-1.0) mg/dL AST 27 (15-37) U/L ALT 33 (14-59) U/L Alkaline Phosphatase 80 (46-116) U/L Total Protein 6.6 (6.4-8.2) g/dl Albumin 3.7 (3.4-5.0) g/dl Globulin 2.9 gm/dL Albumin/Globulin Ratio 1.3 (1-2) Meds: Medications Generic Name Dose Route Start Last Admin Trade Name Freq PRN Reason Stop Dose Admin Sodium Chloride 10 ml 12/12/20 13:50 12/12/20 14:07 Sodium Chloride 0.9% 10 Ml Syringe FLUSH 10 ml ASDIRECTED PRN Administration Keep Vein Open Discontinued Medications Generic Name Dose Route Start Last Admin Trade Name Naomie PRN Reason Stop Dose Admin Diphenhydramine HCl 25 mg 12/12/20 13:50 12/12/20 14:07 Diphenhydramine 50 Mg/Ml Sdv IVPUSH 12/12/20 13:51 25 mg ONETIME ONE Administration Sodium Chloride 1,000 mls @ 999 mls/hr 12/12/20 13:50 12/12/20 14:05 Normal Saline IV 12/12/20 14:50 999 mls/hr ASDIRECTED ONE Administration Ketorolac Tromethamine 30 mg 12/12/20 13:50 12/12/20 14:05 Ketorolac 30 Mg/Ml Sdv IVPUSH 12/12/20 13:51 30 mg ONETIME ONE Administration Metoclopramide HCl 10 mg 12/12/20 13:50 12/12/20 14:06 Metoclopramide 10 Mg/2 Ml Sdv IVPUSH 12/12/20 13:51 10 mg ONETIME ONE Administration - Re-Assessments/Exams Free Text/Narrative Re-Assessment/Exam: 12/12/20 14:09 Patient presents to the ED for the evaluation of her gastrointestinal issues. Highly likely this could be a viral gastroenteritis, that has been known to be in the community. Nonetheless we will get IV established, give her some IV fluids, some nausea meds, pain meds, and basic labs for evaluation. 12/12/20 15:02 Labs have been completed, and demonstrate no focal abnormalities. 12/12/20 15:05 Patient states she is feeling better, she is still somewhat sore but recognizes this is likely due from vomiting and having diarrhea. Official radiology read is still pending however I have looked at the x-ray myself, does look a possible ileus pattern no major signs of obstruction identified by myself at this time. Departure - Departure Time of Disposition: 15:06 Disposition: Home, Self-Care 01 Condition: Good Clinical Impression: Viral gastroenteritis - Discharge Information *PRESCRIPTION DRUG MONITORING PROGRAM REVIEWED*: No *COPY OF PRESCRIPTION DRUG MONITORING REPORT IN PATIENT ANGELINA: No Prescriptions: Ondansetron [Zofran ODT] 4 mg PO Q8H PRN #15 tab.dis PRN Reason: Nausea Instructions: Viral Gastroenteritis, Adult, [id number] Forms: ED Department Discharge Additional Instructions: You have been evaluated in the ED for nausea/vomiting/diarrhea. It is likely that this is caused from a viral gastroenteritis. You have received IV fluid in the ED to help with the dehydration from the vomiting and diarrhea. Over the next 24-48 hours please try to limit diet to clear liquids and advance as tolerated to a bland diet to alleviate symptoms of nausea/vomiting/diarrhea. Please use the Zofran every 8 hours as needed for nausea. This medication was electronically sent to [facility] in the [facility]. Please return to the ED if your symptoms should change or worsen. Sepsis Event Note (ED) - Evaluation Sepsis Screening Result: No Definite Risk - Focused Exam Vital Signs: Vital Signs Temp Pulse Resp BP Pulse Ox 12/12/20 13:40 98.2 F 90 18 160/69 H 97 - My Orders Last 24 Hours: My Active Orders 12/12/20 13:50 Peripheral IV Care [RC] . DIRECTED Sodium Chloride 0.9% [Saline Flush] 10 ml FLUSH ASDIRECTED PRN Peripheral IV Insertion Adult [OM.PC] Routine 12/12/20 13:51 Abdomen 2V AP Flat Upright [CR] Stat - Assessment/Plan Last 24 Hours: My Active Orders 12/12/20 13:50 Peripheral IV Care [RC] . DIRECTED Sodium Chloride 0.9% [Saline Flush] 10 ml FLUSH ASDIRECTED PRN Peripheral IV Insertion Adult [OM.PC] Routine 12/12/20 13:51 Abdomen 2V AP Flat Upright [CR] Stat
--- NOTE | 2020-12-12 15:26 | CR ---
Abdomen: Supine and upright views of the abdomen were obtained. Comparison: Supine and upright views of the abdomen were obtained. Comparison: Prior abdominal x-ray of 12/15/16. Scattered colonic gas is noted. Several slightly prominent loops of small bowel gas are seen. Surgical clips are noted from prior cholecystectomy. No free air is seen. Mild degenerative change is noted within the spine. Previous abdominal surgery is noted. Impression: 1. Slightly prominent small bowel loops suspicious for small partially obstructing small bowel obstruction. 2. Other findings as noted above Diagnostic code #3
== END 2020-12-12 15:24 | disposition home or self-care (01) ==
LOC: JD.ED 13:34
DX: A08.4 Viral intestinal infection, unspecified (principal); E78.00 Pure hypercholesterolemia, unspecified; J45.909 Unspecified asthma, uncomplicated; E66.9 Obesity, unspecified; Z68.37 Body mass index [BMI] 37.0-37.9, adult; Z79.01 Long term (current) use of anticoagulants; Z79.899 Other long term (current) drug therapy
CPT/HCPCS: 36415; 74019; 80053; 85025; 96374; 96375; 99284; J1200; J1885; J2765; J7030; 99283

== ENCOUNTER 2021-01-25 05:27 | Emergency (ER) | payer MEDICARE, MEDICAID ==
[2021-01-25] MEDS ORDERED: Sodium Chloride 0.9% 10 ML Syringe FLUSH PRN ×2 (06:03→06:51)
[2021-01-25] MEDS ORDERED: Ondansetron 4 MG/2 ML SDV IVPUSH ONE (06:03)
--- NOTE | 2021-01-25 06:12 | EDM.PDOC ---
<ClaraAmador yen Sisi - Last Filed: 01/25/21 07:08> ED HPI GENERAL MEDICAL PROBLEM - General Chief Complaint: Abdominal Pain Stated Complaint: ABDOMINAL PAIN Time Seen by Provider: 01/25/21 05:54 Source of Information: Reports: Patient, RN Notes Reviewed - History of Present Illness INITIAL COMMENTS - FREE TEXT/NARRATIVE: 65 yr old female with onset of abd pain yesterday that has become worse during the night, now mainly LLQ. Feels like pain of prior diverticultitis that she has had. She is nauseated, no vomtiing. No diarrhea. Have fever or 101 last evening. Left Lower Abdomen Pain Score (Numeric/FACES): 9 - Related Data Allergies Allergy/AdvReac Type Severity Reaction Status Date / Time No Known Allergies Allergy Verified 01/25/21 05:41 Home Meds: Home Meds Montelukast [Singulair] 10 mg PO DAILY 11/13/17 [History] Acetaminophen 650 mg PO Q6H PRN 06/03/19 [History] atorvaSTATin [Lipitor] 10 mg PO DAILY 06/06/19 [History] Cholecalciferol (Vitamin D3) [Vitamin D3] 5,000 unit PO DAILY 08/10/19 [History] Fluticasone/Salmeterol [Advair 250-50] 1 puff INH BID PRN 08/10/19 [History] Multivitamin [Multivitamins] 1 cap PO DAILY 08/15/19 [History] Magnesium Hydroxide [Milk of Magnesia] 30 ml PO BID PRN cup 08/16/19 [Rx] Sennosides [Senna] 8.6 mg PO BID PRN tablet 08/16/19 [Rx] bisacodyL [Dulcolax] 5 mg PO DAILY PRN tablet 08/16/19 [Rx] Ondansetron [Zofran ODT] 4 mg PO Q8H PRN #15 tab.dis 12/12/20 [Rx] Hydrocodone/Acetaminophen [Hydrocodone-Acetamin 5-325 mg] 1 - 2 each PO QID PRN #15 tablet 01/25/21 [Rx] Levofloxacin 500 mg PO QAM #9 tablet 01/25/21 [Rx] Ondansetron [Zofran ODT] 4 mg PO Q6H PRN #10 tab.dis 01/25/21 [Rx] metroNIDAZOLE [Flagyl] 500 mg PO Q8H #30 tab 01/25/21 [Rx] Past Medical History - Past Health History Medical/Surgical History: Denies Medical/Surgical History HEENT History: Reports: Allergic Rhinitis, Impaired Vision, Other (See Below) Other HEENT History: Seasonal allergies Cardiovascular History: Reports: High Cholesterol, Pulmonary Hypertension Respiratory History: Reports: Asthma, Sleep Apnea Other Respiratory History: Uses CPAP Gastrointestinal History: Reports: Diverticulosis Other Gastrointestinal History: gastric bypass Genitourinary History: Reports: 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: Musculoskeletal History: Reports: Osteoarthritis, Other (See Below) Other Musculoskeletal History: Degenerative joint disease Neurological History: Reports: None Psychiatric History: Reports: None Endocrine/Metabolic History: Reports: Obesity/BMI 30+ Hematologic History: Reports: None Immunologic History: Reports: None Oncologic (Cancer) History: Reports: None Dermatologic History: Reports: None - Infectious Disease History Infectious Disease History: Reports: Chicken Pox, Measles, Mumps - Past Surgical History Head Surgeries/Procedures: Reports: None HEENT Surgical History: Reports: Tonsillectomy Cardiovascular Surgical History: Reports: None Respiratory Surgical History: Reports: None GI Surgical History: Reports: Bariatric Procedure, Cholecystectomy, Colonoscopy, Other (See Below) Other GI Surgeries/Procedures: Gastric Bypass, multiple hernia repairs Female Surgical History: Reports: None Endocrine Surgical History: Reports: None Neurological Surgical History: Reports: None Musculoskeletal Surgical History: Reports: Knee Replacement, Other (See Below) Other Musculoskeletal Surgeries/Procedures:: L knee and both wrists Oncologic Surgical History: Reports: None Dermatological Surgical History: Reports: None Social & Family History - Family History Family Medical History: No Pertinent Family History Cardiac: Reports: PVD/COD, Other (See Below) Other Cardiac Family History: CVA - Tobacco Use Tobacco Use Status *Q: Never Tobacco User Second Hand Smoke Exposure: No - Caffeine Use Caffeine Use: Reports: Coffee - Recreational Drug Use Recreational Drug Use: No - Living Situation & Occupation Living situation: Reports: , with Spouse ED ROS GENERAL - Review of Systems Review Of Systems: See Below Constitutional: Reports: Fever, Chills HEENT: Reports: No Symptoms Respiratory: Denies: Shortness of Breath, Cough Cardiovascular: Denies: Chest Pain GI/Abdominal: Reports: Abdominal Pain, Nausea. Denies: Constipation, Diarrhea, Hematochezia, Melena, Vomiting : Reports: No Symptoms Skin: Reports: No Symptoms Neurological: Reports: No Symptoms ED EXAM, GI/ABD - Physical Exam Exam: See Below General Appearance: Alert, Moderate Distress Throat/Mouth: Normal Inspection Head: Atraumatic Neck: Supple Respiratory/Chest: No Respiratory Distress, Lungs Clear, Normal Breath Sounds Cardiovascular: Regular Rate, Rhythm GI/Abdominal Exam: Tender (LLQ and LUQ), Other (R abd pressure causes pain L abd). No: Guarding, Rebound Back Exam: CVA Tenderness (L). No: CVA Tenderness (R) Extremities: Normal Inspection Neurological: Alert, Oriented, No Motor/Sensory Deficits Skin Exam: Warm, Dry, Normal Color Course - Re-Assessments/Exams Free Text/Narrative Re-Assessment/Exam: 01/25/21 07:09. Change of shift. Awaiting abd/pelvis CT. Will transfer care to Dr Ortega. Departure - Departure Disposition: Home, Self-Care 01 Clinical Impression: Diverticulitis - Discharge Information Prescriptions: metroNIDAZOLE [Flagyl] 500 mg PO Q8H #30 tab Hydrocodone/Acetaminophen [Hydrocodone-Acetamin 5-325 mg] 1 - 2 each PO QID PRN #15 tablet PRN Reason: Pain Levofloxacin 500 mg PO QAM #9 tablet Ondansetron [Zofran ODT] 4 mg PO Q6H PRN #10 tab.dis PRN Reason: Nausea/Vomiting Referrals: Leydi Ellis PA-C [Primary Care Provider] - Forms: ED Department Discharge Additional Instructions: Return to the emergency room with any questions problems or worsening symptoms. You have been started on 2 antibiotics and one is levofloxacin take this every morning until gone. The second antibiotic is metronidazole, or Flagyl take one 3 times a day starting mid afternoon today and again at bedtime and then 3 times daily tomorrow until gone. You have been given a pain medication hydrocodone, take one or 2 every 6 hours as needed for pain. Allow 12 hours after using this medication before driving or returning to work. You have also been started on an Zofran, this is an antinausea medication. Take one every 6 hours as needed for nausea and vomiting. Follow-up with your regular physician or healthcare provider early next week if needed. Sepsis Event Note (ED) - Evaluation Sepsis Screening Result: No Definite Risk <Ezra Ortega - Last Filed: 01/25/21 09:52> Course - Vital Signs Last Recorded V/S: Last Vital Signs Temp 36.6 C 01/25/21 05:36 Pulse 90 01/25/21 08:37 Resp 16 01/25/21 08:37 BP 126/61 01/25/21 08:37 Pulse Ox 96 01/25/21 08:37 - Orders/Labs/Meds Orders: Active Orders 24 hr Category Date Time Status Peripheral IV Care [RC] . DIRECTED Care 01/25/21 06:03 Active Lactated Ringers [Ringers, Lactated] 1,000 ml Med 01/25/21 08:45 Active IV ASDIRECTED Levofloxacin/Dextrose 5%-Water [Levaquin in D5W 750 MG/ Med 01/25/21 08:32 Active 150 ML] 750 mg Premix Bag 1 bag IV ONETIME Sodium Chloride 0.9% [Normal Saline] 1,000 ml Med 01/25/21 06:15 Active IV ONETIME Sodium Chloride 0.9% [Saline Flush] Med 01/25/21 06:03 Active 10 ml FLUSH ASDIRECTED PRN Sodium Chloride 0.9% [Saline Flush] Med 01/25/21 06:51 Active 10 ml FLUSH ONETIME PRN Peripheral IV Insertion Adult [OM.PC] Stat Oth 01/25/21 06:03 Ordered Medication Orders Sodium Chloride (Normal Saline) 1,000 mls @ 999 mls/hr IV ONETIME HORTENCIA Last Admin: 01/25/21 06:16 Dose: 999 mls/hr Documented by: GEORGE Lactated Ringer's (Ringers, Lactated) 1,000 mls @ 125 mls/hr IV ASDIRECTED HORTENCIA Levofloxacin/Dextrose 750 mg/ (Premix) 150 mls @ 100 mls/hr IV ONETIME ONE Stop: 01/25/21 10:01 Last Admin: 01/25/21 08:41 Dose: 100 mls/hr Documented by: MIHAELA Sodium Chloride (Sodium Chloride 0.9% 10 Ml Syringe) 10 ml FLUSH ASDIRECTED PRN PRN Reason: Keep Vein Open Last Admin: 01/25/21 06:17 Dose: 10 ml Documented by: GEORGE Sodium Chloride (Sodium Chloride 0.9% 10 Ml Syringe) 10 ml FLUSH ONETIME PRN PRN Reason: IV FLUSH Last Admin: 01/25/21 07:26 Dose: 10 ml Documented by: YANELI Labs: Laboratory Tests 01/25/21 01/25/21 01/25/21 Range/Units 06:15 06:15 06:15 WBC 8.98 (3.98-10.04) K/mm3 RBC 4.27 (3.98-5.22) M/mm3 Hgb 11.8 (11.2-15.7) gm/dl Hct 37.9 (34.1-44.9) % MCV 88.8 (79.4-94.8) fl MCH 27.6 (25.6-32.2) pg MCHC 31.1 L (32.2-35.5) g/dl RDW Std Deviation 43.0 (36.4-46.3) fL Plt Count 213 (182-369) K/mm3 MPV 10.2 (9.4-12.3) fl Neut % (Auto) 72.2 H (34.0-71.1) % Lymph % (Auto) 18.5 L (19.3-51.7) % Hardee % (Auto) 7.7 (4.7-12.5) % Eos % (Auto) 1.1 (0.7-5.8) Baso % (Auto) 0.4 (0.1-1.2) % Neut # (Auto) 6.48 H (1.56-6.13) K/mm3 Lymph # (Auto) 1.66 (1.18-3.74) K/mm3 Hardee # (Auto) 0.69 H (0.24-0.36) K/mm3 Eos # (Auto) 0.10 (0.04-0.36) K/mm3 Baso # (Auto) 0.04 (0.01-0.08) K/mm3 Sodium 141 (136-145) mEq/L Potassium 4.2 (3.5-5.1) mEq/L Chloride 104 (98-107) mEq/L Carbon Dioxide 26 (21-32) mEq/L Anion Gap 15.2 H (5-15) BUN 14 (7-18) mg/dL Creatinine 0.8 (0.55-1.02) mg/dL Est Cr Clr Drug Dosing 52.90 mL/min Estimated GFR (MDRD) > 60 (>60) mL/min BUN/Creatinine Ratio 17.5 (14-18) Glucose 90 (70-99) mg/dL Calcium 8.7 (8.5-10.1) mg/dL Total Bilirubin 0.9 (0.2-1.0) mg/dL AST 16 (15-37) U/L ALT 24 (14-59) U/L Alkaline Phosphatase 84 (46-116) U/L C-Reactive Protein 5.3 H* (<1.0) mg/dL Total Protein 6.6 (6.4-8.2) g/dl Albumin 3.4 (3.4-5.0) g/dl Globulin 3.2 gm/dL Albumin/Globulin Ratio 1.1 (1-2) SARS-CoV-2 RNA (MAYA) (NEGATIVE) 01/25/21 Range/Units 08:30 WBC (3.98-10.04) K/mm3 RBC (3.98-5.22) M/mm3 Hgb (11.2-15.7) gm/dl Hct (34.1-44.9) % MCV (79.4-94.8) fl MCH (25.6-32.2) pg MCHC (32.2-35.5) g/dl RDW Std Deviation (36.4-46.3) fL Plt Count (182-369) K/mm3 MPV (9.4-12.3) fl Neut % (Auto) (34.0-71.1) % Lymph % (Auto) (19.3-51.7) % Hardee % (Auto) (4.7-12.5) % Eos % (Auto) (0.7-5.8) Baso % (Auto) (0.1-1.2) % Neut # (Auto) (1.56-6.13) K/mm3 Lymph # (Auto) (1.18-3.74) K/mm3 Hardee # (Auto) (0.24-0.36) K/mm3 Eos # (Auto) (0.04-0.36) K/mm3 Baso # (Auto) (0.01-0.08) K/mm3 Sodium (136-145) mEq/L Potassium (3.5-5.1) mEq/L Chloride (98-107) mEq/L Carbon Dioxide (21-32) mEq/L Anion Gap (5-15) BUN (7-18) mg/dL Creatinine (0.55-1.02) mg/dL Est Cr Clr Drug Dosing mL/min Estimated GFR (MDRD) (>60) mL/min BUN/Creatinine Ratio (14-18) Glucose (70-99) mg/dL Calcium (8.5-10.1) mg/dL Total Bilirubin (0.2-1.0) mg/dL AST (15-37) U/L ALT (14-59) U/L Alkaline Phosphatase (46-116) U/L C-Reactive Protein (<1.0) mg/dL Total Protein (6.4-8.2) g/dl Albumin (3.4-5.0) g/dl Globulin gm/dL Albumin/Globulin Ratio (1-2) SARS-CoV-2 RNA (MAYA) Negative (NEGATIVE) Meds: Medications Generic Name Dose Route Start Last Admin Trade Name Naomie PRN Reason Stop Dose Admin Sodium Chloride 1,000 mls @ 999 mls/hr 01/25/21 06:15 01/25/21 06:16 Normal Saline IV 999 mls/hr ONETIME HORTENCIA Administration Lactated Ringer's 1,000 mls @ 125 mls/hr 01/25/21 08:45 Ringers, Lactated IV ASDIRECTED HORTENCIA Levofloxacin/Dextrose 750 mg/ 150 mls @ 100 mls/hr 01/25/21 08:32 01/25/21 08:41 Premix IV 01/25/21 10:01 100 mls/hr ONETIME ONE Administration Sodium Chloride 10 ml 01/25/21 06:03 01/25/21 06:17 Sodium Chloride 0.9% 10 Ml Syringe FLUSH 10 ml ASDIRECTED PRN Administration Keep Vein Open Sodium Chloride 10 ml 01/25/21 06:51 01/25/21 07:26 Sodium Chloride 0.9% 10 Ml Syringe FLUSH 10 ml ONETIME PRN Administration IV FLUSH Discontinued Medications Generic Name Dose Route Start Last Admin Trade Name Freq PRN Reason Stop Dose Admin Diatrizoate Meglum/Diatrizoate Sod 120 ml 01/25/21 06:51 01/25/21 07:26 Diatrizoate Meglumine/Diatrizoate Sodium 37% 120 Ml Bottle PO 01/25/21 06:52 45 ml ONETIME ONE Administration Hydromorphone HCl 0.5 mg 01/25/21 07:08 01/25/21 07:18 Hydromorphone 0.5 Mg/0.5 Ml Syringe IVPUSH 01/25/21 07:09 0.5 mg ONETIME ONE Administration Metronidazole 500 mg/ Premix 100 mls @ 100 mls/hr 01/25/21 08:32 01/25/21 08:41 IV 01/25/21 09:31 100 mls/hr ONETIME ONE Administration Iopamidol 100 ml 01/25/21 06:51 01/25/21 07:26 Iopamidol 612 Mg/Ml 100 Ml Bottle IVPUSH 01/25/21 06:52 100 ml ONETIME ONE Administration Ondansetron HCl 4 mg 01/25/21 06:03 01/25/21 06:17 Ondansetron 4 Mg/2 Ml Sdv IVPUSH 01/25/21 06:04 4 mg ONETIME ONE Administration - Re-Assessments/Exams Free Text/Narrative Re-Assessment/Exam: 01/25/21 08:38 Assumed care at change of shift patient has been doing well she did have her CT done that shows moderately severe diverticulitis. No abscess. I discussed the situation with the patient and at this time she would like to try and treat this as an outpatient. Admission offered but this was declined. Departure - Departure Time of Disposition: 09:52 Sepsis Event Note (ED) - Focused Exam Vital Signs: Vital Signs Temp Pulse Resp BP Pulse Ox 01/25/21 08:37 90 16 126/61 96 01/25/21 05:36 36.6 C 88 20 148/73 H 94 L - My Orders Last 24 Hours: My Active Orders 01/25/21 08:32 Levofloxacin/Dextrose 5%-Water [Levaquin in D5W 750 MG/150 ML] 750 mg Premix Bag 1 bag IV ONETIME 01/25/21 08:45 Lactated Ringers [Ringers, Lactated] 1,000 ml IV ASDIRECTED - Assessment/Plan Last 24 Hours: My Active Orders 01/25/21 08:32 Levofloxacin/Dextrose 5%-Water [Levaquin in D5W 750 MG/150 ML] 750 mg Premix Bag 1 bag IV ONETIME 01/25/21 08:45 Lactated Ringers [Ringers, Lactated] 1,000 ml IV ASDIRECTED
[2021-01-25] MEDS ORDERED: Sodium Chloride 0.9% 1,000 ML IV SCH (06:15)
[2021-01-25] MEDS ORDERED: Diatrizoate Meglumine/Diatrizoate Sodium 37% 120 ML Bottle PO ONE (06:51)
[2021-01-25] MEDS ORDERED: Iopamidol 612 MG/ML 100 ML Bottle IVPUSH ONE (06:51)
[2021-01-25] MEDS ORDERED: HYDROmorphone 0.5 MG/0.5 ML Syringe IVPUSH ONE (07:08)
--- NOTE | 2021-01-25 07:50 | CT ---
CT abdomen and pelvis Technique: Multiple axial sections were obtained from above the dome of the diaphragm inferiorly through the pubic symphysis. Intravenous and oral contrast was utilized. Reconstructed coronal and sagittal images were obtained. Comparison: Prior CT abdomen and pelvis exam of the 10/13/17 is available. Findings: Bowel wall thickening is seen within the sigmoid colon. Diverticula are seen with surrounding inflammatory change compatible with moderately severe diverticulitis. Visualized lung bases show nothing acute. Cyst is noted within the left lobe of the liver measuring 6.8 cm in size which is a stable finding. No additional abnormality is appreciated within the liver. Surgical clips are seen within the upper right abdomen compatible with prior cholecystectomy. Spleen size is normal. Adrenal glands show no nodule. Previous stomach surgery is seen. Kidneys show symmetric contrast enhancement without hydronephrosis or mass. Abdominal aorta shows no aneurysm. No retroperitoneal adenopathy is seen. Mild atherosclerotic change is noted within the abdominal aorta. No mesenteric abnormalities are seen. No additional pelvic abnormality is noted. Bone window settings were reviewed which show degenerative change. Mild compression deformity of L4 is seen which is old. Degenerative change is also noted within both hips. Impression: 1. Findings compatible with moderately severe diverticulitis within the sigmoid colon with bowel wall thickening and diffuse inflammatory change around diverticuli. 2. Other findings as noted above which are chronic. Diagnostic code #3
[2021-01-25] MEDS ORDERED: Levofloxacin/Dextrose 5%-Water 750 MG in Premix Bag 1 BAG IV ONE (08:32)
[2021-01-25] MEDS ORDERED: metroNIDAZOLE/Normal Saline 500 MG in Premix Bag 1 BAG IV ONE (08:32)
[2021-01-25] MEDS ORDERED: Lactated Ringers 1,000 ML IV SCH (08:45)
[2021-01-25 10:16] VITALS: BP 117/84; PULSE 78
[2021-01-25] MEDS ORDERED: Acetaminophen/HYDROcodone 325-5 MG Tab PO ONE (10:16)
== END 2021-01-25 10:23 | disposition home or self-care (01) ==
LOC: JD.ED 05:27
DX: K57.32 Diverticulitis of large intestine without perforation or abscess without bleeding (principal); E78.00 Pure hypercholesterolemia, unspecified; I10 Essential (primary) hypertension; E66.9 Obesity, unspecified; Z79.899 Other long term (current) drug therapy; Z68.37 Body mass index [BMI] 37.0-37.9, adult; Z20.822 Contact with and (suspected) exposure to COVID-19
CPT/HCPCS: 36415; 74177; 80053; 85025; 86140; 96365; 96366; 96368; 96375; 99284; A9270; J1170; J1956; J2405; J3490; J7030; Q9963; Q9967; U0002

== ENCOUNTER 2022-10-14 18:17 | Emergency (ER) | payer MEDICARE, MEDICAID ==
[2022-10-14] MEDS ORDERED: Sodium Chloride 0.9% 10 ML Syringe FLUSH PRN (19:20)
[2022-10-14 20:13] LABS: ESTIMATED GFR 81 mL/min (>60)
[2022-10-14] MEDS ORDERED: Ondansetron 4 MG Tab.DIS PO ONE (20:30)
[2022-10-14 21:37] LABS: CORONAVIRUS COVID-19 NAA NEGATIVE (NEGATIVE)
[2022-10-14 22:17] VITALS: BP 164/67; PULSE 99
== END 2022-10-14 22:17 | disposition home or self-care (01) ==
LOC: JD.ED 18:17
DX: B34.9 Viral infection, unspecified (principal); E78.00 Pure hypercholesterolemia, unspecified; I10 Essential (primary) hypertension; E66.9 Obesity, unspecified; Z68.38 Body mass index [BMI] 38.0-38.9, adult; Z79.899 Other long term (current) drug therapy; Z86.16 Personal history of COVID-19; Z90.49 Acquired absence of other specified parts of digestive tract; Z90.710 Acquired absence of both cervix and uterus; Z20.822 Contact with and (suspected) exposure to COVID-19
CPT/HCPCS: 0241U; 36415; 71046; 80053; 81003; 83605; 83735; 83880; 84484; 85007; 85027; 85379; 86140; 87040; 99284; A9270; J3490

== ENCOUNTER 2024-03-14 08:29 | Day surgery (SDC) | payer MEDICARE, MEDICAID ==
[~2024-03-14 08:29] MED LIST changes: -Acetaminophen 325 MG Tab PO SCH; -Bisacodyl 5 MG Tab PO PRN; -Ketorolac 15 MG/ML SDV IVPUSH PRN; -Lactated Ringers 1,000 ML IV SCH; +Lactated Ringers 1,000 ML ONE; -Lidocaine 1%/Sod Bicarbonate in NS 8.4% 1 ML Syringe IDERM PRN; -Magnesium Hydroxide 400 MG/5 ML Susp 30 ML Cup PO PRN; +Midazolam 1 MG/ML 2 ML SDV ONE; -Morphine 2 MG/ML Syringe IVPUSH PRN; -Naloxone 0.4 MG/ML SDV IVPUSH PRN; -Ondansetron 4 MG/2 ML SDV IVPUSH PRN; +Ondansetron 4 MG/2 ML SDV ONE; -Pregabalin 25 MG Cap PO SCH; +Propofol 200 MG/20 ML SDV ONE; -Sennosides 8.6 MG Tab PO PRN; +Sodium Chloride 0.9% 10 ML Syringe FLUSH SCH; +ceFAZolin 2 GM Vial ONE; +fentaNYL 100 MCG/2 ML SDV ONE; -oxyCODONE ER 10 MG TAB.ER PO SCH
[2024-03-14] MEDS: Lactated Ringers 1,000 ML IV SCH (09:00)
[2024-03-14] MEDS: Pregabalin 25 MG Cap PO SCH (09:12)
[2024-03-14] MEDS: Acetaminophen 325 MG Tab PO SCH (09:12)
[2024-03-14] MEDS: oxyCODONE ER 10 MG TAB.ER PO SCH (09:12)
[2024-03-14] MEDS ORDERED: Phenylephrine 1% 10 MG/ML SDV ONE (10:36)
[2024-03-14] MEDS ORDERED: fentaNYL 100 MCG/2 ML SDV IVPUSH PRN (10:49)
[2024-03-14] MEDS ORDERED: HYDROmorphone 0.5 MG/0.5 ML Syringe IVPUSH PRN (10:49)
[2024-03-14] MEDS ORDERED: Ondansetron 4 MG/2 ML SDV IVPUSH PRN (10:49)
[2024-03-14] MEDS: Vancomycin 1 GM SDV ONE (11:27)
[2024-03-14] MEDS: Morphine 8 MG, EPINEPHrine 0.3 MG, Cefuroxime 750 MG, Ketorolac 30 MG, Sodium Chloride ... PRN (11:27)
[2024-03-14] MEDS: Tranexamic Acid 1,000 MG/10 ML Vial ONE (11:27)
[2024-03-14] MEDS: oxyCODONE 5 MG Tab PO PRN (12:41)
[2024-03-14] MEDS: oxyCODONE 5 MG Tab PO ONE (14:44)
[2024-03-14 15:05] VITALS: BP 96/66; PULSE 88
== END 2024-03-14 14:40 | disposition home or self-care (01) ==
LOC: JD.SDS 08:29
PROVIDERS: ATTEND Orthopaedic Surgery
DX: M16.12 Unilateral primary osteoarthritis, left hip (principal); I11.0 Hypertensive heart disease with heart failure; I50.32 Chronic diastolic (congestive) heart failure; E78.00 Pure hypercholesterolemia, unspecified; G47.33 Obstructive sleep apnea (adult) (pediatric); E66.01 Morbid (severe) obesity due to excess calories; Z79.82 Long term (current) use of aspirin; Z79.899 Other long term (current) drug therapy
CPT/HCPCS: 0055T; 27130; 36415; 73501; 86850; 86900; 86901; 97110; 97161; A9270; C1713; C1776; J0171; J0690; J0697; J1885; J2250; J2270; J2371; J2405; J2704; J3370; J7120; 01214; J3010; J3490